=== PATIENT | female | born 1990 | race Caucasian/White ===

== ENCOUNTER 2020-02-29 21:55 | Inpatient (IN) | payer SELFPAY ==
[2020-02-29] MEDS ORDERED: NA CHLORIDE 0.9% 1,000 ML ONE (23:01)
[2020-02-29 23:42] LABS: Urine Blood NEGATIVE (NEG); Urine Glucose NEGATIVE (NEG); Urine Protein NEGATIVE (NEG)
[2020-03-01 00:50] LABS: Absolute Lymphocytes (CBC) 1.8 K/uL (0.7-4.9); Basophils % 0.4 % (0-1.3); Hematocrit 38.4 % (36.0-45.0); Lymphocytes % 12.8 % (15.3-44.8); MPV 9.5 fL (7.6-11.3); RBC Red Blood Cell Count 4.58 M/uL (3.86-4.86)
[2020-03-01 00:52] LABS: Protime INR 1.25
[2020-03-01 01:11] LABS: Urine Culture Reflex Order NOT NEEDED
[2020-03-01 01:12] LABS: Urine Bacteria <20 /HPF (<20); Urine RBC <5 /HPF (NONE SEEN)
[2020-03-01 01:19] LABS: ALT/SGPT 20 U/L (12-78); AST/SGOT 11 U/L (15-37); Albumin 4.1 g/dL (3.4-5.0); Alkaline Phosphatase 81 U/L (45-117); BUN Blood Urea Nitrogen 6 mg/dL (7-18); Bicarbonate 24 mmol/L (21-32); Bilirubin Direct < 0.1 mg/dL (0-0.2); Bilirubin Total 0.4 mg/dL (0.2-1.0); Ferritin 18.7 ng/mL (8-388); Glucose Level 87 mg/dL (74-106); Lipase 149 U/L (73-393); Potassium 3.2 mmol/L (3.5-5.1); Protein, Total 8.5 g/dL (6.4-8.2); Sodium Level 137 mmol/L (136-145)
[2020-03-01] MEDS ORDERED: FENTANYL CITR 100 MCG/2 ML ONE (01:38)
[2020-03-01] MEDS ORDERED: Levofloxacin 750mg IV 750 MG/150 ML BAG IV ONE (01:39)
--- NOTE | 2020-03-01 02:12 | ER ---
Nurse's Notes [facility] Name: Katherine Lopez Age: 29 yrs Sex: Female : 1990 Arrival Date: 02/29/2020 Time: 21:57 Bed 15 Private MD: Diagnosis: Fever presenting with conditions classified elsewhere;Prominent bilateral cervical lymphadenopathy;Hypokalemia;Volume depletion Presentation: 02/28 22:02 Chief complaint: Patient states: Fever and fatigue for 3 days. + body aches. Slight ll1 cough. No N/V/D. Coronavirus screen: Proceed with normal triage. Patient reports a cough. Patient denies shortness of breath or difficulty breathing. Patient reports a measured and/or subjective temperature greater than 100.4F. Patient denies travel on a cruise ship or to a country the [facility] currently lists as an affected area. Patient denies contact with known and/or suspected case of COVID-19. Coronavirus screen: Surgical mask placed on patient. Patient moved to private room, placed in contact and droplet isolation with eye protection until further assessment. Ebola Screen: Patient denies travel to an Ebola-affected area in the 21 days before illness onset. Initial Sepsis Screen: Does the patient meet any 2 criteria? Temp <36.0*C (96.8*F)) or > 38.3*C (100.9*F). HR > 90 bpm. Risk Assessment: Do you want to hurt yourself or someone else? Patient reports no desire to harm self or others. Onset of symptoms was February 26, 2020. 22:02 Method Of Arrival: Ambulatory ll1 22:02 Acuity: PIA 3 ll1 03/01 00:00 Initial Sepsis Screen: Does the patient have a suspected source of infection? Yes: Other: fever. RELINER: 00:00 [facility] 01/2020 wh Historical: - Allergies: 02/28 22:04 Azithromycin; ll1 22:04 Ceclor; ll1 22:04 Codeine; ll1 22:04 Sulfa (Sulfonamide Antibiotics); ll1 03/01 01:10 Iodine (Anaphylaxis); lp1 - PMHx: 02/28 22:04 Asthma; ll1 - PSHx: 22:04 Tonsillectomy; lap band; ll1 - Immunization history:: Flu vaccine is up to date. - Social history:: Smoking status: Patient reports the use of cigarette tobacco products, smokes one-half pack cigarettes per day, Patient uses alcohol, only on a social basis. Patient/guardian denies using street drugs. Screenin/03 00:00 Abuse screen: Denies threats or abuse. Denies injuries from another. Nutritional wh screening: No deficits noted. Tuberculosis screening: No symptoms or risk factors identified. Fall Risk None identified. Assessment: 02/28 22:45 General: Appears in no apparent distress. Behavior is calm, cooperative, appropriate wh for age. Pain: Complains of pain in neck Pain does not radiate. Pain currently is 6 out of 10 on a pain scale. Neuro: Level of Consciousness is awake, alert, obeys commands, Oriented to person, place, time, situation, Appropriate for age. Cardiovascular: Heart tones S1 S2 Rhythm is sinus tachycardia. Respiratory: Airway is patent Respiratory effort is even, unlabored, Respiratory pattern is regular, symmetrical, Breath sounds are clear bilaterally. GI: Abdomen is flat, non-distended. : No signs and/or symptoms were reported regarding the genitourinary system. EENT: Throat is pink. Derm: Skin is intact, is healthy with good turgor, Skin is pink, warm \T\ dry. normal. Musculoskeletal: Circulation, motion, and sensation intact. 03/01 00:05 Reassessment: Patient appears in no apparent distress at this time. No changes from previously documented assessment. Patient and/or family updated on plan of care and expected duration. Pain level reassessed. Patient is alert, oriented x 3, equal unlabored respirations, skin warm/dry/pink. 01:00 Reassessment: Patient appears in no apparent distress at this time. No changes from previously documented assessment. Patient and/or family updated on plan of care and expected duration. Pain level reassessed. Patient is alert, oriented x 3, equal unlabored respirations, skin warm/dry/pink. 02:00 Reassessment: Patient appears in no apparent distress at this time. No changes from previously documented assessment. Patient and/or family updated on plan of care and expected duration. Pain level reassessed. Patient is alert, oriented x 3, equal unlabored respirations, skin warm/dry/pink. Provider at bedside explaining POC need for admit. 03:30 Reassessment: Patient appears in no apparent distress at this time. No changes from previously documented assessment. Patient and/or family updated on plan of care and expected duration. Pain level reassessed. Patient is alert, oriented x 3, equal unlabored respirations, skin warm/dry/pink. Vital Signs: 02/28 22:02 BP 179 / 90; Pulse 152; Resp 18; Temp 100.4; Pulse Ox 100% ; Weight 86.18 kg; Height 5 ll1 ft. 3 in. (160.02 cm); Pain 3/10; 03/01 00:00 BP 132 / 90; Pulse 114; Resp 18; Pulse Ox 100% on R/A; wh 01:30 BP 126 / 95; Pulse 107; Resp 18; Pulse Ox 100% on R/A; wh 03:00 BP 123 / 86; Pulse 108; Resp 18; Pulse Ox 100% on R/A; wh 04:00 BP 127 / 88; Pulse 105; Resp 18; Temp 99.2; Pulse Ox 99% on R/A; wh 02/28 22:02 Body Mass Index 33.66 (86.18 kg, 160.02 cm) ll1 ED Course: 02/28 21:57 Patient arrived in ED. cl3 22:04 Triage completed. ll1 22:05 Arm band placed on Patient placed in an exam room, on a stretcher. ll1 22:34 [facility]C [facility] snw 22:34 Darrick Montes De Oca MD is Attending Physician. snw 22:35 Nando Linn is Primary Nurse. wh 23:30 Inserted saline lock: 20 gauge in left antecubital area, using aseptic technique. Blood wh collected. 03/01 00:00 Patient has correct armband on for positive identification. Placed in gown. Bed in low wh position. Call light in reach. radiation monitor on. Pulse ox on. NIBP on. 00:25 Inserted saline lock: 22 gauge in right forearm, using aseptic technique. Blood ds4 collected. IV discontinued, intact, bleeding controlled, No redness/swelling at site. Pressure dressing applied. 00:36 BMP Sent. ds4 00:36 CBC with Diff Sent. ds4 00:36 D-Dimer Sent. ds4 01:39 Soft Tissue Neck Wo Contr In Process Unspecified. EDMS 01:56 CXR XRAY In Process Unspecified. EDMS 02:10 Carmen Moreno MD is Hospitalizing Provider. snw 03:39 No provider procedures requiring assistance completed. Patient admitted, IV remains in place. Administered Medications: 00:05 Drug: NS 0.9% 1000 ml Route: IV; Rate: 1 bolus; Site: left antecubital; 03:45 Follow up: Response: No adverse reaction; IV Status: Completed infusion 01:41 Drug: LevaQUIN 750 mg Volume: 150 ml; Route: IVPB; Infused Over: 90 mins; Site: right wh forearm; 02:44 Follow up: IV Status: Completed infusion 01:41 Drug: fentaNYL (PF) 50 mcg {Note: RASS 0.} Route: IVP; Site: right forearm; 02:44 Follow up: Response: No adverse reaction; Pain is decreased; RASS: Alert and Calm (0) 03:25 Drug: NS 0.9% 1000 ml Route: IV; Rate: 1 bolus; Site: right forearm; 03:43 Follow up: Response: No adverse reaction; IV Status: Completed infusion 03:26 Drug: Potassium Chloride 20 mEq Route: IV; Rate: calculated rate; Site: right forearm; 03:44 Follow up: Response: No adverse reaction; IV Status: Completed infusion 03:26 Drug: Decadron - Dexamethasone 10 mg Route: IVP; Site: right forearm; 03:44 Follow up: Response: No adverse reaction Outcome: 02:12 Decision to Hospitalize by Provider. snw 03:40 Admitted to ER Hold. Please see [facility] for further documentation. 03:40 Condition: stable 03:40 Instructed on the need for admit. 05:53 Admitted to Tele accompanied by [facility], via wheelchair, room 417, with chart, Report wh called to Rachele Mullen RN 05:53 Condition: stable 05:53 Instructed on the need for admit. 05:55 Patient left the ED. Signatures: Dispatcher [employer] EDMS Mallory Chapman, PADMAJA BAKER BREAD-Csnw Leanne Almeida, RN RN lp1 Daniel Vázquez ds4 Nando Linn Mariza Presley cl3 Adrien Presley RN RN ll1 Corrections: (The following items were deleted from the chart) 05:19 03:00 BP 127 / 88; Pulse 105bpm; Resp 18bpm; Pulse Ox 99% RA; Temp 99.2F; wh wh
--- NOTE | 2020-03-01 02:13 | EDPHYS ---
Physician Documentation [facility] Name: Katherine Lopez Age: 29 yrs Sex: Female : 1990 Arrival Date: 02/29/2020 Time: 21:57 Bed 15 Private MD: KEVIN Physician Darrick Montes De Oca HPI: 03/01 01:13 This 29 yrs old Female presents to ER via Ambulatory with complaints of snw Fever, Chills. 01:13 The patient reports fever, fever to 103 started today, malaise, fatigue, myalgias x 2 snw day prior to fever. Onset: The symptoms/episode began/occurred suddenly, and became worse. Associated signs and symptoms: Pertinent positives: decreased appetite, myalgias. Severity of symptoms: At their worst the symptoms were moderate. The patient has not experienced similar symptoms in the past. The patient has not recently seen a physician. 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 - Social history:: Smoking status: Patient reports the use of cigarette tobacco products, smokes one-half pack cigarettes per day, Patient uses alcohol, only on a social basis. Patient/guardian denies using street drugs. ROS: 03/01 01:10 Eyes: Negative for injury, pain, redness, and discharge. snw Respiratory: Negative for shortness of breath, cough, wheezing, and pleuritic chest pain, Abdomen/GI: Negative for abdominal pain, nausea, vomiting, diarrhea, and constipation, Back: Negative for injury and pain, : Negative for injury, bleeding, discharge, and swelling, MS/Extremity: Negative for injury and deformity, Skin: Negative for injury, rash, and discoloration. Constitutional: Positive for body aches, chills, fatigue, fever, malaise, poor PO intake. ENT: Positive for sore throat. Neck: Positive for pain with movement, pain at rest, tenderness, "feels like whiplash", but the anterior portion is tender to touch. Cardiovascular: Positive for palpitations. Neuro: Positive for dizziness. Exam: 01:10 Head/Face: Normocephalic, atraumatic. Eyes: Pupils equal round and reactive to light, snw extra-ocular motions intact. Lids and lashes normal. Conjunctiva and sclera are non-icteric and not injected. Cornea within normal limits. Periorbital areas with no swelling, redness, or edema. ENT: Nares patent. No nasal discharge, no septal abnormalities noted. Tympanic membranes are normal and external auditory canals are clear. Oropharynx with no redness, swelling, or masses, exudates, or evidence of obstruction, uvula midline. Mucous membranes moist. 01:10 Chest/axilla: Normal chest wall appearance and motion. Nontender with no deformity. No lesions are appreciated. 01:10 Respiratory: Lungs have equal breath sounds bilaterally, clear to auscultation and percussion. No rales, rhonchi or wheezes noted. No increased work of breathing, no retractions or nasal flaring. Abdomen/GI: Soft, non-tender, with normal bowel sounds. No distension or tympany. No guarding or rebound. No evidence of tenderness throughout. Back: No spinal tenderness. No costovertebral tenderness. Full range of motion. Skin: Warm, dry with normal turgor. Normal color with no rashes, no lesions, and no evidence of cellulitis. MS/ Extremity: Pulses equal, no cyanosis. Neurovascular intact. Full, normal range of motion. Neuro: Awake and alert, GCS 15, oriented to person, place, time, and situation. Cranial nerves II-XII grossly intact. Motor strength 5/5 in all extremities. Sensory grossly intact. Cerebellar exam normal. Normal gait. Psych: Awake, alert, with orientation to person, place and time. Behavior, mood, and affect are within normal limits. 01:10 Constitutional: The patient appears alert, awake, febrile, uncomfortable. 01:10 Neck: External neck: is normal, C-spine: appears grossly normal, Thyroid: tenderness, that is moderate, Trachea: is midline with no obvious abnormalities, ROM/movement: limited range of motion, with flexion, in most extreme flexion. Meningeal signs: Kernig's sign is negative, Brudzinski's sign is negative, nuchal rigidity, is not appreciated, Lymph nodes: lymphadenopathy is appreciated, anterior cervical nodes, exquisitely tender. 01:10 Cardiovascular: Rate: tachycardic, Rhythm: regular, Heart sounds: normal. Vital Signs: 02/28 22:02 BP 179 / 90; Pulse 152; Resp 18; Temp 100.4; Pulse Ox 100% ; Weight 86.18 kg; Height 5 ll1 ft. 3 in. (160.02 cm); Pain 3/10; 03/01 00:00 BP 132 / 90; Pulse 114; Resp 18; Pulse Ox 100% on R/A; wh 01:30 BP 126 / 95; Pulse 107; Resp 18; Pulse Ox 100% on R/A; wh 03:00 BP 123 / 86; Pulse 108; Resp 18; Pulse Ox 100% on R/A; wh 04:00 BP 127 / 88; Pulse 105; Resp 18; Temp 99.2; Pulse Ox 99% on R/A; wh 02/28 22:02 Body Mass Index 33.66 (86.18 kg, 160.02 cm) ll1 MDM: 02/28 22:38 Patient medically screened. [facility] 03/01 02:12 Data reviewed: vital signs, nurses notes. Data interpreted: Pulse oximetry: on room air snw is 100 %. Interpretation: normal. Counseling: I had a detailed discussion with the patient and/or guardian regarding: the historical points, exam findings, and any diagnostic results supporting the discharge/admit diagnosis, the presence of at least one elevated blood pressure reading (>120/80) during this emergency department visit, lab results, radiology results, the need for further work-up and treatment in the hospital. Physician consultation: Carmen Moreno MD was called at 02:00, was contacted at 02:00, regarding admission, would like medications started, Decadron. 02/28 22:07 Order name: Flu; Complete Time: 23:19 lp1 02/28 22:07 Order name: Strep; Complete Time: 23:19 lp1 02/28 22:34 Order name: COVID-19 snw 02/28 22:35 Order name: Urine Culture snw 02/28 22:35 Order name: Urine Microscopic Only; Complete Time: 01:15 snw 02/28 22:56 Order name: Throat Culture EDMS 02/28 23:21 Order name: Blood Culture Adult (2) snw 02/28 23:21 Order name: BMP; Complete Time: 01:35 snw 02/28 23:21 Order name: C-Reactive Protein; Complete Time: 01:35 snw 02/28 23:21 Order name: CBC with Diff; Complete Time: 00:58 snw 02/28 23:21 Order name: D-Dimer; Complete Time: 00:58 snw 02/28 23:21 Order name: Ferritin; Complete Time: 01:35 snw 02/28 23:21 Order name: Lactate; Complete Time: 01:15 snw 02/28 23:21 Order name: LFT's; Complete Time: 01:35 snw 02/28 23:21 Order name: Lipase; Complete Time: 01:35 snw 02/28 23:21 Order name: Procalcitonin; Complete Time: 01:35 snw 02/28 23:21 Order name: PT-INR; Complete Time: 00:58 snw 02/28 23:21 Order name: Ptt, Activated; Complete Time: 00:58 snw 02/28 23:21 Order name: CXR XRAY snw 02/28 23:21 Order name: TSH; Complete Time: 01:35 snw 02/28 23:37 Order name: Urine Dipstick--Ancillary (enter results); Complete Time: 23:48 [facility] 02/28 23:37 Order name: Urine --Ancillary (enter results); Complete Time: 23:48 [facility] 03/01 01:11 Order name: Soft Tissue Neck Wo Contr EDNM 03/01 02:01 Order name: Add On-Lab sn 03/01 02:14 Order name: [place] Screen; Complete Time: 02:41 EDNM 02/28 22:35 Order name: Urine Test (obtain specimen); Complete Time: 00:06 snw 02/28 22:35 Order name: Urine Dipstick-Ancillary (obtain specimen); Complete Time: 00:06 snw 02/28 23:21 Order name: EKG; Complete Time: 23:23 snw 02/28 23:21 Order name: Cardiac monitoring; Complete Time: 00:04 snw 02/28 23:21 Order name: IV Start; Complete Time: 00:04 snw 02/28 23:21 Order name: Labs collected and sent; Complete Time: 00:04 snw 02/28 23:21 Order name: O2 Per Protocol; Complete Time: 00:04 snw 02/28 23:21 Order name: O2 Sat Monitoring; Complete Time: 00:04 snw 03/01 02:29 Order name: CONS Pharmacy Consult EDMS 03/01 02:29 Order name: CONS Physician Consult EDMS 03/01 02:29 Order name: Full Liquid EDMS Administered Medications: 00:05 Drug: NS 0.9% 1000 ml Route: IV; Rate: 1 bolus; Site: left antecubital; 03:45 Follow up: Response: No adverse reaction; IV Status: Completed infusion 01:41 Drug: LevaQUIN 750 mg Volume: 150 ml; Route: IVPB; Infused Over: 90 mins; Site: right forearm; 02:44 Follow up: IV Status: Completed infusion 01:41 Drug: fentaNYL (PF) 50 mcg {Note: RASS 0.} Route: IVP; Site: right forearm; 02:44 Follow up: Response: No adverse reaction; Pain is decreased; RASS: Alert and Calm (0) 03:25 Drug: NS 0.9% 1000 ml Route: IV; Rate: 1 bolus; Site: right forearm; 03:43 Follow up: Response: No adverse reaction; IV Status: Completed infusion 03:26 Drug: Potassium Chloride 20 mEq Route: IV; Rate: calculated rate; Site: right forearm; 03:44 Follow up: Response: No adverse reaction; IV Status: Completed infusion 03:26 Drug: Decadron - Dexamethasone 10 mg Route: IVP; Site: right forearm; 03:44 Follow up: Response: No adverse reaction Disposition: 14:46 Co-signature as Attending Physician, Darrick Montes De Oca MD I agree with the assessment and farzaneh plan of care. Disposition: 03/01/20 02:12 Hospitalization ordered by Carmen Moreno for Observation. Preliminary diagnosis are Fever presenting with conditions classified elsewhere, Prominent bilateral cervical lymphadenopathy, Hypokalemia, Volume depletion. - Bed requested for Telemetry/MedSurg (observation). - Status is Observation. wh - Condition is Stable. - Problem is new. - Symptoms are unchanged. Signatures: Dispatcher [employer] EDMS Darrick Montes De Oca MD MD cha Therrien, Shelly, CHIEF MAINTENANCE SUPERVISOR-C CHIEF MAINTENANCE SUPERVISOR-Csnw Leanne Almeida, RN RN lp1 Patricia Walton, RN RN tl1 Nando Linn wh Geni Ontiveros ar5 Adrien Presley, RN RN ll1 Corrections: (The following items were deleted from the chart) 00:27 0602 23:21 Nath ordered. snw snw 03/01 01:11 00:54 Soft Tissue Neck W/Contr+CT.RAD.BRZ ordered. EDMS EDMS 02:56 02:12 Hospitalization Ordered by Carmen Moreno MD for Observation. Preliminary ar5 diagnosis is Fever presenting with conditions classified elsewhere; Prominent bilateral cervical lymphadenopathy; Hypokalemia; Volume depletion. Bed requested for Telemetry/MedSurg (observation). Status is Observation. Condition is Stable. Problem is new. Symptoms are unchanged. snw 04:53 02:56 03/01/2020 02:12 Hospitalization Ordered by Carmen Moreno MD for Observation. tl1 Preliminary diagnosis is Fever presenting with conditions classified elsewhere; Prominent bilateral cervical lymphadenopathy; Hypokalemia; Volume depletion. Bed requested for [facility] ER HOLD. Status is Observation. Condition is Stable. Problem is new. Symptoms are unchanged. ar5 05:55 04:53 03/01/2020 02:12 Hospitalization Ordered by Carmen Moreno MD for Observation. wh Preliminary diagnosis is Fever presenting with conditions classified elsewhere; Prominent bilateral cervical lymphadenopathy; Hypokalemia; Volume depletion. Bed requested for Telemetry/MedSurg (observation). Status is Observation. Condition is Stable. Problem is new. Symptoms are unchanged. tl1
[2020-03-01] MEDS ORDERED: MORPHINE 4 MG/ML SYR IV PRN (02:23)
[2020-03-01] MEDS ORDERED: ACETAMINOPHEN 500 MG TAB PO PRN (02:23)
[2020-03-01] MEDS ORDERED: ONDANSETRON 4 MG/2 ML VIAL IV PRN (02:23)
[2020-03-01] MEDS: CLINDAMYCIN INJ 900 MG in NA CHLORIDE 0.9% 50 ML IV SCH ×2 (03:00→08:40)
[2020-03-01] MEDS: HYDROCORTISONE SUC 100 MG INJ IV SCH ×2 (03:00→08:52)
[2020-03-01] MEDS ORDERED: NA CHLORIDE 0.9% 1,000 ML IV SCH (03:00)
[2020-03-01] MEDS ORDERED: KCL 20 MEQ/100 mL IVPB 20 MEQ/100 ML BAG IV ONE (03:11)
[2020-03-01] MEDS ORDERED: NA CHLORIDE 0.9% 1,000 ML ONE ×2 (03:11→05:30)
[2020-03-01] MEDS ORDERED: dexAMETHasone 10 MG/ML VIAL ONE (03:11)
[2020-03-01 03:51] VITALS: BMI 33.6
[2020-03-01] MEDS ORDERED: HYDROCORTISONE SUC 100 MG INJ ONE (05:30)
[2020-03-01] MEDS ORDERED: CLINDAMYCIN 900MG/D5W 900 MG/50 ML IVPB IV ONE (05:30)
--- NOTE | 2020-03-01 09:39 | RAD REPORT ---
EXAM DESCRIPTION: Mima Single View03/01/2020 1:56 am CLINICAL HISTORY: Fever/tachycardia COMPARISON: 2015 FINDINGS: Calcified granuloma left lung unchanged The lungs appear clear of acute infiltrate. The heart is normal size IMPRESSION: No acute abnormalities displayed
--- NOTE | 2020-03-01 09:45 | P.HP ---
Certification for Inpatient Patient admitted to: Inpatient With expected LOS: >2 Midnights Patient will require the following post-hospital care: None Practitioner: I am a practitioner with admitting privileges, knowledge of patient current condition, hospital course, and medical plan of care. 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 Her symptoms have been gradually worsening over the last week so she came into the hospital for further evaluation. In the emergency room patient's CT scan which revealed anterior cervical lymphadenitis. No other significant abnormalities were noted except for possible maxillary sinusitis. Patient was started on IV antibiotics and pain control. Patient was also given some Decadron for inflammation. Patient's strep screen was negative as was a Monospot. At this time, patient be admitted to the hospital for further evaluation. Patient denies any COVID-19 contact. Will go ahead and screen her at this time. Allergies azithromycin Allergy (Verified 03/01/20 03:52) Unknown cefaclor [From Ceclor] Allergy (Verified 03/01/20 03:52) Unknown codeine Allergy (Verified 03/01/20 03:52) Unknown Iodine and Iodide Containing Produc Allergy (Verified 03/01/20 03:52) Anaphylaxis Sulfa (Sulfonamide Antibiotics) Allergy (Verified 03/01/20 03:52) Unknown Sulfa (Solorio Allergy (Uncoded 03/01/20 03:52) Unknown Home Medications: NK [No Home Meds] 03/01/20 - Past Medical/Surgical History Has patient received pneumonia vaccine in the past: No Diabetic: No -: Asthma -: lap band -: tonsillectomy - Family History Father Family History: Reviewed- Non-Contributory - Social History Smoking Status: Current some day smoker Alcohol use: No CD- Drugs: No Caffeine use: Yes Place of Residence: Home Review of Systems 10-point ROS is otherwise unremarkable Physical Examination - Vital Signs Temperature: 98.5 F Blood Pressure: 114/60 Pulse: 71 Respirations: 18 Pulse Ox (%): 99 - Physical Exam General: Alert, In no apparent distress, Oriented x3 HEENT: Atraumatic, PERRLA, Mucous membr. moist/pink, EOMI, Sclerae nonicteric Neck: 2+ carotid pulse no bruit, Without JVD or thyroid abnormality, LAD Respiratory: Clear to auscultation bilaterally, Normal air movement, Diminished Cardiovascular: Regular rate/rhythm, Normal S1 S2, No murmurs Gastrointestinal: Normal bowel sounds, Soft and benign, Non-distended, No tenderness Musculoskeletal: No clubbing, No swelling, No tenderness Integumentary: No rashes Neurological: Normal gait, Normal speech, Normal strength at 5/5 x4 extr, Normal tone, Sensation intact, Cranial nerves 3-12 intact, Normal affect Lymphatics: No axilla or inguinal lymphadenopathy - Studies Laboratory Data (last 24 hrs) 03/01/20 00:30: PT 14.7 H, INR 1.25, APTT 29.8 03/01/20 00:30: WBC 14.3 H, Hgb 12.2, Hct 38.4, Plt Count 271 03/01/20 00:30: Sodium 137, Potassium 3.2 L, BUN 6 L, Creatinine 0.84, Glucose 87, Total Bilirubin 0.4, AST 11 L, ALT 20, Alkaline Phosphatase 81, Lipase 149 Microbiology Data (last 24 hrs): 02/29/20 22:10 Throat Group A Streptococcus Rapid Screen - Final 02/29/20 22:10 Nasopharnyx Influenza Type A Antigen Screen - Final 02/29/20 22:10 Nasopharnyx Influenza Type B Antigen Screen - Final Assessment & Plan - Problems (Diagnosis) (1) Lymphadenitis, acute Current Visit: Yes Status: Acute (2) Anterior cervical lymphadenopathy Current Visit: Yes Status: Acute (3) Fever Current Visit: Yes Status: Acute (4) Acute pharyngitis Current Visit: Yes Status: Acute - Plan 1. Continue with IV hydration 2. Continue with IV antibiotics 3. Continue with pain control; anti-inflammatories 4. NPO until evaluated by ENT 5. ENT consultation consultation; 6. Serial H&H, and we will monitor CBC, BMP, LFTs and lipase along with electrolytes. 7. GI and DVT prophylaxis Discharge Plan: Home Plan to discharge in: Greater than 2 days - Advance Directives Does patient have a Living Will: No Does patient have a Durable POA for Healthcare: No - Code Status/Comfort Care Code Status Assessed: Yes Code Status: Full Code Critical Care: No Time Spent Managing PTS Care (In Minutes): 40
[2020-03-01 12:46] VITALS: O2SAT 91
--- NOTE | 2020-03-01 12:56 | P.CNS ---
Date of Consult: 03/01/20 Chart review is performed, including personal review of the CT neck images. Study is poorly contrasted. The case discussed with Dr Warner. The patient's CT does not demonstrate significant OP edema or any sign of abscess/fluid collection. Based on presentation with LAD, I agree with viral, possible EBV pharyngitis despite negative monospot. The monospot can be negative, pooja within the first few days of infection. Consider EBV IgM/IgG if definitive dx is required. Ok for FU with Dr Fernandez in 1-2 weeks or sooner if sore throat if not improving. Hydration. Oral steroids for LAD/swelling. Antibiotics do not likely play a significant role but can consider Clinda or Amoxil if there are pharyngeal indications per primary team.
--- NOTE | 2020-03-01 13:08 | P.DS ---
Admission Date: 03/01/20 Discharge Date: 03/01/20 Primary Care Provider: Dr. Franco Disposition: ROUTINE DISCHARGE Discharge Condition: GOOD Reason for Admission: Strep pharyngitis with anterior cervical lymphadenitis Consultations: ENT-Dr. Fernandez Procedures: Ct Scan: Cervical chain adenopathy without abscess. Medical Problem List: Fever, dysphagia secondary to suspected mono with noted anterior cervical lymphadenopathy Chronic seasonal allergies Brief History of Present Illness: 29-year-old female presented to the emergency room with dysphagia. Patient with chronic seasonal allergies. Patient also reported some neck pain. She had reported this over the past week. This had worsened. Patient came to the ER for further evaluation. CT scan revealed kenaitze node adenopathy. No abscess noted. Patient was admitted for further evaluation. Hospital Course: 29-year-old female presented with dysphagia and neck pain. Patient found to have significant cervical adenopathy. Strep test negative. Hernando test negative. Influenza test negative. COVID negative. Pro calcitonin also negative. Patient was admitted for further evaluation. Patient had elevated CRP. CT scan revealed cervical chain adenopathy. No abscess noted. Patient did well during the course her stay with IV fluids, antibiotics and IV steroids. Case discussed at length with ENT. No surgical intervention required. ENT suspects mono. Patient responded well to IV steroids. At discharge patient will continue with prednisone 10 mg 1 pill twice daily for 5 days then 1 pill once daily for 5 days. No need for antibiotic therapy at this time. Recommend follow up with ENT within 1 week to follow up this hospitalization. Education on mono will be provided. Patient with chronic seasonal allergies. Patient takes medication. She may continue with this. Recommend follow up with tableau architect to further follow and address. Vital Signs/Physical Exam: Temp Pulse Resp BP Pulse Ox 97.0 F 74 18 105/59 L 91 03/01/20 12:00 03/01/20 12:00 03/01/20 12:00 03/01/20 12:03/01/20 12:00 General: Alert, In no apparent distress, Oriented x3, Cooperative, Other (Patient does not appear septic. Patient able to tolerate diet) HEENT: Atraumatic, Other (Cervical bilateral adenopathy. Postauricular and preauricular adenopathy.) Neck: Supple Respiratory: Clear to auscultation bilaterally, Normal air movement Cardiovascular: Normal pulses, Regular rate/rhythm Gastrointestinal: No guarding Neurological: Normal speech, Normal strength at 5/5 x4 extr, Normal tone, Normal affect Lymphatics: Other (As above) Laboratory Data at Discharge: WBC 14.3 K/uL (4.3-10.9) H 03/01/20 00:30 Hgb 12.2 g/dL (12.0-15.0) 03/01/20 00:30 Hct 38.4 % (36.0-45.0) 03/01/20 00:30 Plt Count 271 K/uL (152-406) 03/01/20 00:30 PT 14.7 SECONDS (9.5-12.5) H 03/01/20 00:30 INR 1.25 03/01/20 00:30 APTT 29.8 SECONDS (24.3-36.9) 03/01/20 00:30 Sodium 137 mmol/L (136-145) 03/01/20 00:30 Potassium 3.2 mmol/L (3.5-5.1) L 03/01/20 00:30 BUN 6 mg/dL (7-18) L 03/01/20 00:30 Creatinine 0.84 mg/dL (0.55-1.3) 03/01/20 00:30 Glucose 87 mg/dL (74-106) 03/01/20 00:30 Total Bilirubin 0.4 mg/dL (0.2-1.0) 03/01/20 00:30 AST 11 U/L (15-37) L 03/01/20 00:30 ALT 20 U/L (12-78) 03/01/20 00:30 Alkaline Phosphatase 81 U/L (45-117) 03/01/20 00:30 Lipase 149 U/L (73-393) 03/01/20 00:30 Home Medications: predniSONE [Deltasone*] 10 mg PO SEECOM #15 tab 03/01/20 New Medications: predniSONE [Deltasone*] 10 mg PO SEECOM #15 tab Patient Discharge Instructions: 29-year-old female presented with dysphagia and neck pain. Patient found to have significant cervical adenopathy. Strep test negative. Hernando test negative. Influenza test negative. COVID negative. Pro calcitonin also negative. Patient was admitted for further evaluation. Patient had elevated CRP. CT scan revealed cervical chain adenopathy. No abscess noted. Patient did well during the course her stay with IV fluids, antibiotics and IV steroids. Case discussed at length with ENT. No surgical intervention required. ENT suspects mono. Patient responded well to IV steroids. At discharge patient will continue with prednisone 10 mg 1 pill twice daily for 5 days then 1 pill once daily for 5 days. No need for antibiotic therapy at this time. Recommend follow up with ENT within 1 week to follow up this hospitalization. Education on mono will be provided. Patient with chronic seasonal allergies. Patient takes medication. She may continue with this. Recommend follow up with tableau architect to further follow and address. Diet: GI soft then advance to regular diet Activity: Ad jairo Time spent managing pt's care (in minutes): 55
--- NOTE | 2020-03-01 16:29 | EKG ---
Test Date: 2020-02-29 Test Time: 23:58:03 Dyed Yarn Operator: CARMEN MEASUREMENT RESULTS: Intervals: Rate: 112 AL: 170 QRSD: 84 QT: 322 QTc: 439 Pine: P: 58 AL: 170 QRS: 70 T: 71 INTERPRETIVE STATEMENTS: Sinus tachycardia Otherwise normal ECG Compared to ECG 08/28/2016 11:53:56 No significant changes Electronically Signed On 03-01-20 16:27:31 CDT by Suresh Guillaume
[2020-03-01] MEDS ORDERED: CLINDAMYCIN INJ 900 MG in NA CHLORIDE 0.9% 50 ML IV SCH (17:00)
--- NOTE | 2020-03-01 17:21 | RAD REPORT ---
EXAM DESCRIPTION: CT - Soft Tissue Neck Wo Contr - 03/01/2020 7:04 am CLINICAL HISTORY: The patient is 29 years old and is Female; PAIN fever, cough, body aches TECHNIQUE: Axial computed tomography images of the neck without intravenous contrast. Sagittal and coronal reformatted images were created and reviewed. This CT exam was performed using one or more of the following dose reduction techniques: automated exposure control, adjustment of the mA and/o r kV according to patient size, and/or use of iterative reconstruction technique. COMPARISON: No relevant prior studies available. FINDINGS: OROPHARYNX: Unremarkable. No significant tonsillar enlargement. HYPOPHARYNX: Unremarkable. LARYNX: Unremarkable. Normal epiglottis. TRACHEA: Unremarkable. RETROPHARYNGEAL SPACE: Unremarkable. SUBMANDIBULAR/PAROTID GLANDS: Unremarkable. Glands are normal in size. THYROID: Unremarkable. No enlarged or calcified nodules. BONES/JOINTS: No acute fracture. SOFT TISSUES: The soft tissues are normal. VASCULATURE: Unremarkable. Normal in course and caliber. LYMPH NODES: Multiple prominent bilateral cervical chain lymph nodes are present. SINUSES: Mucoperiosteal thickening of the right maxillary sinus, ethmoid air cells, and right sp henoid sinus is noted. LUNG APICES: The lung apices are clear. IMPRESSION: Prominent bilateral reactive versus inflammatory cervical chain adenopathy. Electronically signed by: Korin Kaplan MD 03/01/2020 1:46 AM CDT Due to temporary technical issues with the PACS/Fluency reporting system, reports are being signed by the in house radiologist without review a sa courtesy to ensure prompt reporting. The interpreting r adiologist is fully responsible for the content of the report.
[2020-03-01] MEDS ORDERED: Levofloxacin500mg IV 500 MG/100 ML BAG IV SCH (23:00)
[2020-03-02] MEDS ORDERED: Levofloxacin500mg IV 500 MG/100 ML BAG IV SCH (01:00)
[2020-03-03 03:24] VITALS: BP 114/60; TEMP 98.5
== END 2020-03-01 13:50 | disposition home or self-care (01) | DRG 816 ==
LOC: ER 21:55 → ERHOLD 03-01 02:32 → 4TH 03-01 05:40
PROVIDERS: ADMIT Hospitalist; ATTEND Hospitalist
DX: R59.1 Generalized enlarged lymph nodes (principal); F17.200 Nicotine dependence, unspecified, uncomplicated; J02.9 Acute pharyngitis, unspecified; J30.2 Other seasonal allergic rhinitis; R50.9 Fever, unspecified; Z20.828 Contact with and (suspected) exposure to other viral communicable diseases; Z79.52 Long term (current) use of systemic steroids; Z88.1 Allergy status to other antibiotic agents; Z88.5 Allergy status to narcotic agent; Z88.8 Allergy status to other drugs, medicaments and biological substances
CPT/HCPCS: 36415; 70490; 71045; 80048; 80076; 81003; 81015; 81025; 82728; 83605; 83690; 84145; 84443; 85025; 85379; 85610; 85730; 86140; 86308; 87040; 87070; 87081; 87086; 87088; 87804; 93005; 96361; 96365; 96367; 96375; 99285; J1100; J1720; J3010; J7030

== ENCOUNTER 2021-10-25 01:16 | Emergency (ER) | payer BC ==
--- OUTSIDE RECORDS SUMMARY | 2021-10-25 01:18 | XMS REPORT | Continuity of Care Document ---
:1990 Author Organization [facility] t Address [address] [place] [address] Care Team Providers Name Role Phone Unavailable Unavailable Unavailable Problems This patient has no known problems. Allergies, Adverse Reactions, Alerts This patient has no known allergies or adverse reactions. Social History Social Habit Start Date Stop Date Quantity Comments Source Sex Assigned At [facility] Medications This patient has no known medications. Procedures This patient has no known procedures. Results Test Description Test Time Test Comments Results Result Comments Source SARS-COV2/RT-PCR ([facility]) 2020-03-01 06:35:00 Test Item Value Reference Range Interpretation Comme nts SARS-COV2/RT-PCR (test code = 8300209) Not Detected Not Detected, N egative SARS-COV-2 PERFORMING LAB (test code = [facility] 3202508) Negative results do not preclude SARS-CoV-2 infection and should not be used as the sole basis for patient management decisions. Negative results must be combined with clinical observations, patient history, and epidemiological information. A false negative result may occur if a specimen is improperly collected, transported or handled.The limit of detection for this assay is 250 copies/mL.This SARS CoV-2 test is a rapid, real-time RT-PCR test intended for the qualitative detection of nucleic acid from SARS-CoV-2 in a nasopharyngeal swab specimen collected from individuals suspected of COVID-19 by their healthcare provider.This test has not been Food and Drug Administration (FDA) cleared or approved and has been authorized by FDA under an Emergency Use Authorization (EUA). This EUA will be effective until the declaration that circumstances exist justifying the authorization of the emergency use of in vitro diagnostic tests for detection and/or diagnosis of COVID-19 is terminated under Section 564(b)(2) of the Act or the EUA is revoked under Section 564(g) of the Act.Fact Sheet for Healthcare Pro viders:https://www.[employer]/Documents/Xpert%20Xpress%20SARS%20CoV-2/Fact%20Sh eets/3023802%18ZHRD-SRF-0%20HEALTHCARE%20PROVIDERS%20FACT%20SHEET.pdfFact Sheet for Healthcare Patients:https://www.[employer]/Documents/Xpert%20Xpress%20SARS%20CoV-2/Fact%20Sheets/302-9691%20SARS-COV -2%20PATIENT%20FACT%20SHEET.pdfPerforming Laboratory:[facility] [place] [address]
[2021-10-25] MEDS ORDERED: METHYLPREDNISOLONE 125 MG INJ ONE (01:57)
[2021-10-25] MEDS ORDERED: DIPHENHYDRAMINE 50 MG/ML VIAL ONE (01:57)
[2021-10-25] MEDS ORDERED: FAMOTIDINE 20 MG/2 ML VIAL IV ONE (02:04)
[2021-10-25] MEDS ORDERED: NEO/POLY/DEX OPTH 5 ML BOT ONE (04:08)
--- NOTE | 2021-10-25 04:10 | ER ---
Nurse's Notes [facility] Name: Katherine Lopez Age: 30 yrs Sex: Female : 1990 Arrival Date: 10/25/2021 Time: 01:19 Bed 18 Private MD: Quentin Ordonez Diagnosis: Allergic dermatitis of left lower eyelid;Allergic dermatitis of left upper eyelid;Allergic dermatitis of right lower eyelid;Allergic dermatitis of right upper eyelid Presentation: 10/25 01:30 Chief complaint: Patient states: Red, swollen, watery eyes after getting eye lash al4 extensions on Friday. Coronavirus screen: Vaccine status: Patient reports receiving the 2nd dose of the covid vaccine. [employer] At this time, the client does not indicate any symptoms associated with coronavirus-19. Ebola Screen: No symptoms or risks identified at this time. Onset: The symptoms/episode began/occurred suddenly. Anaphylaxis evaluation, no signs or symptoms of anaphylaxis were noted. Initial Sepsis Screen: Does the patient meet any 2 criteria? HR > 90 bpm. No. Patient's initial sepsis screen is negative. Does the patient have a suspected source of infection? No. Patient's initial sepsis screen is negative. Risk Assessment: Do you want to hurt yourself or someone else? Patient reports no desire to harm self or others. Onset of symptoms was October 23, 2021. 01:30 Method Of Arrival: Ambulatory al4 01:30 Acuity: PIA 4 al4 Triage Assessment: 01:38 General: Appears in no apparent distress. uncomfortable, Behavior is calm, cooperative, al4 appropriate for age, Patient reports getting eye lash extensions on Friday and having an allergic reaction. Symptoms include irritated and swollen eyes.. Pain: Complains of pain in right eye and left eye Pain currently is 4 out of 10 on a pain scale. EENT: Eyes red, swollen, watery. Neuro: Level of Consciousness is awake, alert, obeys commands, Oriented to person, place, time, situation. Cardiovascular: Capillary refill < 3 seconds Patient's skin is warm and dry. Respiratory: Airway is patent Respiratory effort is even, unlabored, Respiratory pattern is regular, symmetrical. 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 - Social history:: Smoking status: Patient denies any tobacco usage or history of. Patient uses alcohol, occasionally. - Family history:: not pertinent. - Hospitalizations: : No recent hospitalization is reported. Screenin:35 Abuse screen: Denies threats or abuse. Denies injuries from another. Nutritional tk1 screening: No deficits noted. Tuberculosis screening: No symptoms or risk factors identified. Fall Risk None identified. Assessment: 01:35 General: Appears uncomfortable, well groomed, well developed, well nourished, Behavior tk1 is calm, cooperative, appropriate for age. Pain: Complains of pain in right eye, left eye Pain does not radiate. Pain currently is 5 out of 10 on a pain scale. Quality of pain is described as burning, itching, sand paper Pain began gradually, 1 day ago. Is continuous, Alleviated by nothing. Aggravated by. Neuro: No deficits noted. Level of Consciousness is awake, alert, obeys commands, Oriented to person, place, time, situation, Appropriate for age Candy Bar Attendant are equal bilaterally Moves all extremities. Full function Gait is steady, Speech is normal, Facial symmetry appears normal, Pupils are PERRLA, Reports. Cardiovascular: No deficits noted. Respiratory: Airway is patent Respiratory effort is even, unlabored, Breath sounds are clear bilaterally. GI: No deficits noted. : No deficits noted. EENT: No deficits noted. Derm: Skin is intact, Skin is dry, Skin is pink, warm \T\ dry. Reports burning, itching, pain that is 5 out of 10 on a pain scale. Bilateral eyes. Musculoskeletal: No deficits noted. 02:25 Reassessment: Vaseline applied to bilateral lash lines. Used warm water on wash cloth tk1 to attempt to remove eyelash extensions. Some lashes released. Additional vaseline applied and covered with warm damp wash cloth to sit for 15 - 20 minutes. Patient tolerated well. 03:18 Reassessment: More lashed released. Moderated amount remain in place. Patient tk1 verbalized, she continues with sand in eyes feeling. 04:30 Reassessment: D/C per MD order. Discharge instructions given to patient and spouse. tk1 Verbalized understanding. Vital Signs: 01:30 BP 113 / 79; Pulse 98; Resp 18; Temp 98.6; Pulse Ox 99% ; Weight 81.65 kg; Height 5 ft. al4 3 in. (160.02 cm); Pain 4/10; 01:35 BP 135 / 83 LA Sitting (auto/reg); Pulse 102 MON; Resp 20 S; Temp 98.6; Pulse Ox 100% tk1 on R/A; Pain 5/10; 02:30 BP 111 / 62 LA Supine (auto/reg); Pulse 77 MON; Resp 16 S; Pulse Ox 99% on R/A; tk1 03:18 BP 95 / 50 LA Supine (auto/reg); Pulse 69 MON; Resp 16; Pulse Ox 96% on R/A; tk1 04:03 BP 121 / 60 LA Sitting (auto/reg); Pulse 69; Resp 18; Pulse Ox 98% on R/A; tk1 01:30 Body Mass Index 31.89 (81.65 kg, 160.02 cm) al4 ED Course: 01:19 Patient arrived in ED. es 01:19 Quentin Ordonez MD is Private Physician. es 01:28 Rodríguez Jones MD is Attending Physician. rn 01:30 Myesha Farias is Primary Nurse. tk1 01:35 Bed in low position. Call light in reach. Side rails up X2. Adult w/ patient. tk1 01:35 No provider procedures requiring assistance completed. tk1 01:38 Triage completed. al4 01:38 Arm band placed on. al4 01:52 Inserted saline lock: 20 gauge in right forearm, using aseptic technique. tk1 04:30 IV discontinued, intact, bleeding controlled, No redness/swelling at site. Pressure tk1 dressing applied. Administered Medications: 02:09 Drug: SOLU-Medrol (methylPrednisoLONE) 125 mg Route: IVP; Site: right forearm; tk1 02:09 Drug: Benadryl (diphenhydrAMINE) 50 mg Route: IVP; Site: right forearm; tk1 02:09 Drug: Pepcid (famotidine) 20 mg Route: IVP; Site: right forearm; tk1 03:29 Follow up: Decreased edema to bilateral upper and lower eyelids. Bilateral lids with tk1 continued redness. 04:11 Drug: TobraDEX (tobramycin-dexamethasone) Drops (0.3 %-0.1 %) 2 drops {Note: one drop bb administered to left eye will wait 15 minutes to ascertain allergic reaction will do both eyes if no allergic response.} Route: Ophthalmic; Site: left eye; Intake: Outcome: 04:10 Discharge ordered by . rn 04:30 Discharged to home ambulatory. tk1 04:30 Condition: improved 04:30 Discharge instructions given to patient, significant other, Instructed on discharge instructions, follow up and referral plans. Demonstrated understanding of instructions, follow-up care. 04:33 Patient left the ED. tk1 Signatures: Leanna Mauricio Brenda, RN RN bb Nieto, Roman, MD MD rn Ledbetter, Alexis al4 Kirby, Tammie tk1
--- NOTE | 2021-10-25 04:10 | EDPHYS ---
Physician Documentation [facility] Name: Katherine Lopez Age: 30 yrs Sex: Female : 1990 Arrival Date: 10/25/2021 Time: 01:19 Bed 18 Private MD: Quentin Ordonez ED Physician Rodríguez Jones HPI: 10/25 01:51 This 30 yrs old Female presents to ER via Ambulatory with complaints of Allergic rn Reaction. 01:51 The patient presents with localized swelling. Onset: The symptoms/episode rn began/occurred yesterday. Associated signs and symptoms: Pertinent positives: swelling, Pertinent negatives: hives, shortness of breath. Possible causes: False eyelashes. At home the patient or guardian has treated the symptoms with Benadryl, steroids. Severity of symptoms: At their worst the symptoms were moderate in the emergency department the symptoms are unchanged. The patient has not experienced similar symptoms in the past. The patient has not recently seen a physician. Patient states had false eyelashes placed, tried oral steroids and Benadryl and not really helping. Denies any shortness of breath or trouble swallowing. Reports swelling to eyelids and clear leakage from eyes. 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 - Social history:: Smoking status: Patient denies any tobacco usage or history of. Patient uses alcohol, occasionally. - Family history:: not pertinent. - Hospitalizations: : No recent hospitalization is reported. ROS: 01:51 Constitutional: Negative for fever, chills, and weight loss, Eyes: Positive for rn swelling and redness to both eyes ENT: No stridor Respiratory: Speaking full sentences, unlabored Abdomen/GI: Negative for abdominal pain, nausea, vomiting, diarrhea, and constipation, Neuro: Negative for headache, weakness, numbness, tingling, and seizure. Exam: 01:51 Constitutional: This is a well developed, well nourished patient who is awake, alert, rn and in no acute distress. Ambulatory to room without difficulty or assistance Head/Face: Normocephalic, atraumatic. Eyes: Swelling bilateral periocular regions with eyelid swelling and scleral injection with clear drainage ENT: No stridor Cardiovascular: Regular rate and rhythm with a normal S1 and S2. No gallops, murmurs, or rubs. Normal PMI, no JVD. No pulse deficits. Respiratory: Speaking full sentences, unlabored. No increased work of breathing, no retractions or nasal flaring. Skin: No urticaria Neuro: Awake and alert, GCS 15 Vital Signs: 01:30 BP 113 / 79; Pulse 98; Resp 18; Temp 98.6; Pulse Ox 99% ; Weight 81.65 kg; Height 5 ft. al4 3 in. (160.02 cm); Pain 4/10; 01:35 BP 135 / 83 LA Sitting (auto/reg); Pulse 102 MON; Resp 20 S; Temp 98.6; Pulse Ox 100% tk1 on R/A; Pain 5/10; 02:30 BP 111 / 62 LA Supine (auto/reg); Pulse 77 MON; Resp 16 S; Pulse Ox 99% on R/A; tk1 03:18 BP 95 / 50 LA Supine (auto/reg); Pulse 69 MON; Resp 16; Pulse Ox 96% on R/A; tk1 04:03 BP 121 / 60 LA Sitting (auto/reg); Pulse 69; Resp 18; Pulse Ox 98% on R/A; tk1 01:30 Body Mass Index 31.89 (81.65 kg, 160.02 cm) al4 MDM: 01:39 Patient medically screened. rn 04:07 Differential diagnosis: acute allergic reaction, contact dermatitis. Data reviewed: rn vital signs, nurses notes, and as a result, I will discharge patient. Counseling: I had a detailed discussion with the patient and/or guardian regarding: the historical points, exam findings, and any diagnostic results supporting the discharge/admit diagnosis, the need for outpatient follow up, to return to the emergency department if symptoms worsen or persist or if there are any questions or concerns that arise at home. Response to treatment: the patient's symptoms have markedly improved after treatment, and as a result, I will discharge patient. ED course: Given tobradex here and given bottle to take at home Q6H, states is planning on f/u in AM to get rest of lashes removed, we were able to remove some with petroleum jelly. . 10/25 01:45 Order name: IV Start; Complete Time: 01:53 rn Administered Medications: 02:09 Drug: SOLU-Medrol (methylPrednisoLONE) 125 mg Route: IVP; Site: right forearm; tk1 02:09 Drug: Benadryl (diphenhydrAMINE) 50 mg Route: IVP; Site: right forearm; tk1 02:09 Drug: Pepcid (famotidine) 20 mg Route: IVP; Site: right forearm; tk1 03:29 Follow up: Decreased edema to bilateral upper and lower eyelids. Bilateral lids with tk1 continued redness. 04:11 Drug: TobraDEX (tobramycin-dexamethasone) Drops (0.3 %-0.1 %) 2 drops {Note: one drop bb administered to left eye will wait 15 minutes to ascertain allergic reaction will do both eyes if no allergic response.} Route: Ophthalmic; Site: left eye; Disposition Summary: 10/25/21 04:10 Discharge Ordered Location: Home rn Problem: new rn Symptoms: have improved rn Condition: Stable rn Diagnosis - Allergic dermatitis of left lower eyelid rn - Allergic dermatitis of left upper eyelid rn - Allergic dermatitis of right lower eyelid rn - Allergic dermatitis of right upper eyelid rn Followup: rn - With: Private Physician - When: As needed - Reason: Recheck today's complaints, Re-evaluation by your physician Discharge Instructions: - Discharge Summary Sheet rn - Contact Dermatitis rn Forms: - Medication Reconciliation Form rn - Thank You Letter rn - Antibiotic athletic training internship - Prescription Opioid Use rn Signatures: Slime Neri, RN RN Rodríguez Hardwick MD MD rn Ledbetter, Alexis al4 Kirby, Tammie tk1
[2021-10-25 04:58] VITALS: TEMP 98.6
[2021-10-25 05:04] VITALS: BP 121/60; O2SAT 98
== END 2021-10-25 04:33 | disposition home or self-care (01) ==
LOC: ER 01:16
DX: L23.9 Allergic contact dermatitis, unspecified cause (principal); Z88.0 Allergy status to penicillin; Z88.1 Allergy status to other antibiotic agents; Z88.2 Allergy status to sulfonamides; Z88.5 Allergy status to narcotic agent; Z91.048 Other nonmedicinal substance allergy status
CPT/HCPCS: 96375; 96374; 99283; J1200; J2930

== ENCOUNTER 2023-03-13 21:16 | Emergency (ER) | payer BC ==
--- OUTSIDE RECORDS SUMMARY | 2023-03-13 21:20 | XMS REPORT | Continuity of Care Document ---
:1990 Author Organization [facility] t Address [address] [place] [address] Care Team Providers Name Role Phone CYRUS SILVA JR Primary Care Physician Unavailable Ruddy DIAZ, Miguel Angel So Attending Clinician Ashlee Lamb Attending Clinician Unavailable Stacey Meehan Attending Clinician Unavailable Tanisah Baeza MD Attending Clinician TANISHA BAEZA Attending Clinician Unavailable Ashlee Lamb Admitting Clinician Unavailable Payers Payer Name Policy Type Policy Number Effective Date Expiration Date S ource Problems This patient has no known problems. Allergies, Adverse Reactions, Alerts Allergy Allergy Status Severity Reaction(s) Onset Inactive Treating Comm ents Source Name Type Date Date Clinician azithrom DA Active U RASH-UNKNOWN 2021-09 HC A ycin 1-24 [facility] [place] DA Active U UNKNOWN 2021-09 [facility] ins - [facility] [place] iodine DA Active U ANAPHYLACTIC 2021-09 [facility] 1-20 [facility] [place] codeine DA Active U NAUSEA, 2021-09 [facility] VOMITING 1-20 [facility] [place] cefaclor DA Active U RASH 2021-09 [facility] 1-20 [facility] [place] erythrom DA Active U UNKNOWN 2021-09 [facility] ycin 1-20 [facility] base 00:[facility] [place] codeine DA Active U NAUSEA, 2021-09 [facility] VOMITING 1-07 [facility] [place] cefaclor DA Active U RASH 2021-09 [facility] 1-07 [facility] [place] erythrom DA Active U UNKNOWN 2021-09 [facility] ycin 1- [facility]: [facility] [place] CODEINE DRUG Active Hives 2021-0 Univers INGREDI 5-12 ity of 00:00: [place] 00 [facility] Branch Azithrom Propensi Active Hives 2021-0 Univer s ycin ty to 5-12 ity of adverse 00:00: [place] reaction 00 Medical s Branch Cefaclor Propensi Active Hives 2021-0 Univer s ty to 5-12 ity of adverse 00:00: [place] reaction 00 Medical s Branch Codeine Propensi Active Hives 2021-0 Univers ty to 5-12 ity of adverse 00:00: [place] reaction 00 Medical s Branch Iodine Propensi Active Anaphylaxis 2021-0 Uni vers ty to 5-12 ity of adverse 00:00: [place] reaction 00 Medical s Branch IODINE DRUG Active Anaphylaxis 2021-0 Unive rs INGREDI 5-12 ity of 00:00: [place] 00 [facility] CEFACLOR DRUG Active Hives 2021-0 Univers INGREDI 5-12 ity of 00:00: [place] 00 [facility] AZITHROM DRUG Active Hives 2021-0 Univers YCIN INGREDI 5-12 ity of 00:00: [place] 00 [facility] codeine DA Active U NAUSEA, 2013-09 [facility] VOMITING 0-20 [facility] 00:[facility] [place] cefaclor DA Active U RASH 2013- [facility] 0-20 [facility] 00:[facility] [place] erythrom DA Active U UNKNOWN 2013- [facility] ycin 0-20 [facility] base 00:[facility]: [facility] [place] NO KNOWN Drug Active [facility] ALLERGIE Class ity of S [facility] Social History Social Habit Start Date Stop Date Quantity Comments Source Gender identity [facility] Sexual orientation [facility] Exposure to 2022-01-28 2022-02-07 Not sure [facility] SARS-CoV-2 (event) 00:00:00 03:14:00 [facility] Sex Assigned At [birth year] Met [facility] 00:00:00 00:00:00 Smoking Status Start Date Stop Date Source Tobacco smoking consumption unknown [facility] Medications Ordered Filled Start Stop Current Ordering Indication Dosage Frequency Signature Comments Components Source Medication Medication Date Date Medication? Clinician (SIG) Name Name NaCl 0.9% 1000mL at 999 Uni vers (NS) bolus 5-12 05-12 mL/hr, ity of infusion 09:45: 10:28 1,000 mL, Chun as 1,000 mL 00 :00 IV Medical Infusion, Branch ONCE, 1 dose, On Lesley 02/07/22 at 0445, STAT oseltamivir Yes [id number] 75mg Take 1 Univers (TAMIFLU) 5-12 capsule by ity of 75 mg 00:00: mouth 2 [place] capsule 00 (two) Medical times Branch daily. Vital Signs Vital Name Observation Time Observation Value Comments Source Systolic blood 2022-02-07 10:00:00 126 mm[Hg] Univer sity of pressure [facility] Diastolic blood 2022-02-07 10:00:00 75 mm[Hg] Unive rsity of [facility] Heart rate 2022-02-07 10:00:00 100 [facility] Respiratory rate 2022-02-07 10:00:00 185 /[facility] in 2022-02-07 10:00:00 91 /min [facility] Arterial blood by [facility] Pulse oximetry Branch Body temperature 2022-02-07 09:00:00 37.72 Shannan [facility] Body height 2022-02-07 08:16:00 160 cm [facility] Body weight 2022-02-07 08:16:00 81.647 kg [facility] BMI 2022-02-07 08:16:00 31.89 kg/m2 [facility] Procedures Procedure Date / Time Performing Source Performed Clinician PLATELET AGGREGATION PANEL 2022-12-19 14:57:00 [facility] VWD PANEL 2022-12-19 14:57:00 [facility] ospital THROMBOELASTOGRAPH 2022-12-19 14:57:00 [facility] CARDIOLIPIN ANTIBODIES 2022-12-19 14:57:00 [facility] MISCELLANEOUS REFERRAL TEST 2022-12-19 14:57:00 [facility] [id number] 2022-08-22 00:00:00 [facility] [id number] 2022-08-22 00:00:00 [facility] [id number] 2022-08-22 00:00:00 [facility] [id number] 2022-08-22 00:00:00 [facility] [id number] 2022-08-22 00:00:00 [facility] [id number] 2022-08-22 00:00:00 [facility] LACTIC ACID WHOLE BLOOD 2022-02-07 08:45:00 Tanisha Baeza [facility] LIPASE 2022-02-07 08:44:00 Tanisha Baeza [facility] COMP. METABOLIC PANEL 2022-02-07 08:44:00 Tanisha Baeza [facility] ([id number]) [facility] CBC WITH DIFF 2022-02-07 08:44:00 Tanisha Baeza [facility] URINALYSIS 2022-02-07 08:44:00 Tanisha Baeza [facility] RAPID STREP SCREEN FOR GROUP 2022-02-07 08:27:00 Tanisha Baeza [facility] A [facility] RAPID INFLUENZA A/B 2022-02-07 08:27:00 Tanisha Baeza [facility] COVID-19 (ID NOW RAPID 2022-02-07 08:27:00 Tanisha Baeza [facility] TESTING) Medical Branch NOTICE OF PRIVACY PRACTICES 2022-02-07 08:14:21 Doctor Neelam razo [facility] [place] [facility] CONSENT/REFUSAL FOR 2022-02-07 08:12:20 Doctor Gwen [facility] DIAGNOSIS AND TREATMENT [place] [facility] Plan of Care Planned Activity Planned Date Details Comments Source Future Scheduled 2023-02-05 COVID-19 VACCINE [facility] Test 11:56:03 (#1) [code = COVID-19 VACCINE (#1)] Future Scheduled 2023-02-05 [facility] Test 11:56:03 screening (procedure) [code = 091093695] Future Scheduled 2023-02-05 [facility] for [facility] Test 11:56:03 malignant neoplasm of cervix (procedure) [code = 913134470] Future Scheduled 2023-02-05 INFLUENZA VACCINE [facility] Test 11:56:03 [code = INFLUENZA VACCINE] Encounters Start End Encounter Admission Attending Care Care Encounter Source Date/Time Date/Time Type Type Clinicians Facility Department ID 2022-12-19 2022-12-19 Lab Fox, 1.2.840.1 [id number] Method[facility] 09:30:00 09:35:00 Miguel Angel H. [address].1.[address] 3.430.2.7 Hospit a .3.618341 l .8 2022-12-19 2022-12-19 Travel 1.2.840.1 [id number] [id number] [facility] 00:00:00 00:00:[address] 3.430.2.7 0.2.7.3.698 Ho spita .3.002966 084.8 l .8 2022-12-19 2022-12-19 Outpatient [facility] [id number] [place] 00:00:00 00:00:00 MIGUEL ANGEL [address] 2022-08-19 2022-08-24 Inpatient EM [facility] OBPP [id number] [facility] 02:04:00 15:00:00 Ashlee 39 [facility] 2022-08-05 2022-08-05 Emergency EM [facility]or[facility] TAMARA [id number] [facility] 15:24:00 18:25:00 Stacey 43 Woman' s [facility] 2022-02-07 2022-02-07 Emergency [facility] [id number] [id number] [facility] 03:20:00 05:28:00 Tanisha ROBLES 350.1.13.10 i ty of [place] 4.2.7.2.686 [facility] [id number] [place] [id number] Branch 2022-02-07 2022-02-07 Emergency [facility] [id number] Univers 03:20:00 05:28:00 TANISHA gracia [facility] Results Test Description Test Time Test Comments Results Result Comments Source Miscellaneous referral test 2022-12-24 22:54:00 Test Item Value Reference Range Interpretation Comme nts [facility] test name (test VWF multimer code = 2566) [facility] test result (test see comment VWF Q uantitative Multimer code = 1730) High MW Multime rs ............ 31 %Intermediate M W Multimers .... 46 %Low MW Multimer .............. 23 % VWF Multimer Distri bution: Normal - - - - - - - - - - - - - - - - - - - - - - - - - - - - - - VWF M ultimer Interpretation: Normal distribution of multimers; no evidence of type 2A, Type 2B or platelet- type von Willebrand defe ct by multimer analys is. Correlation wit h Factor VIII activity, other VWF assays and clinical hi story is suggested. =Reported: 11/28 14:45 performing site :[place] [address] [address] [place], [place] MISAEL (test code = MISAEL) VERSITITEST: VWF QUANTITATIVE MULTIMERFROZEN CITRATED PLASMADOS: 12/19/2022FEDEX [id number] [facility]2022-12-09 15:26:00 Test Item Value Reference Range Interpretation Comments SURGICAL (test code = SR) -----RUN DATE: 09/06/22 [facility] - [facility] PAGE 1 RUN TIME: 1526 Specimen Inquiry RUN USER: INTERFACE -----PATIENT: KATHERINE MARRUFO LOC: [facility] U #: [id number] AGE/SX: ROOM: [age] RE08/19/22REG DR: Ashlee Lamb MD : 89 BED: A DIS: 08/24/22 STATUS: DIS IN TLOC: ----- SPEC #: [id number] RECD: 08/26/22 STATUS: AMOR MARCH #: [id number] CHANDRA: 08/22/[address] [facility] [address]: Ashlee Lamb MD ENTERED: 08/26/22 SP TYPE: SURGICAL OTHR DR: DOES_NOT KNOW Mateo Burgos MD, Robert C MDORDERED: ANATOMIC SPEC, SPEC TRACK, [id number] COPIES TO: DOES_NOT KNOW Ashlee Lamb MD [address] [place] [address] [email or web address] Mateo Burgos MD [address] [place] [address] Sofia Hedrick MD [address] [place] [address] PROCEDURES: 16043 (08/26/22) TISSUES: A. PLACENTA, THIRD TRIMESTER (28 + WEEKS) FINAL DIAGNOSIS A. 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 CONTINUED ON NEXT PAGE -----RUN DATE: 09/06/22 [facility] PAGE 2 RUN TIME: 1526 Specimen Inquiry RUN USER: INTERFACE -----SPEC #: [id number] PATIENT: KATHERINE MARRUFO #[id number] (Continued) GROSS DESCRIPTION Received fixed, labeled with Patient's name, , MRN and "placenta", is a singletonplacenta with attached cord and membranes. The umbilical cord measures 34 cm in totallength, 1.3 cm in diameter, is centrally placed, 6 cm from the nearest placental edge, ispearl-white, smooth and glistening. Cross sectioning demonstrates 3 vessels. There are 4coils in 10 cm of cord. The membranes are tanner-bucio, smooth, with tanner patches andtranslucent. They have marginal attachment and are ruptured 3 cm from the disc edge. Theplacental disc is ovoid, measures 17.5 x 13.5 x 2.7 cm, and weighs 382 grams without themembranes and cord. The surface is purple-blue, smooth and glistening, with a singletan-white, firm nodule that is 2 x 1.5 cm, located at the edge. The maternal surfacetan-brown, with mild fibrin tissue scattered throughout; it is intact and complete. Serialsections through the disc show tanner-red, beefy parenchyma; with a fibrin/hemorrhagic nodulethat is 1.7 x 1.5 x 1.5 cm, located 2 cm away from the edge. Rabbet Operator sectionssubmitted as follows: A1: Membrane roll and cordA2-4: Disc cross-sections.A5: surface nodule.A6: Disc cross sectioned fibrin/hemorrhagic nodule.XZ 09/05/22 Technical component performed at [facility],[address], [place] [address] Unless gross only, the diagnosis is based upon microscopic examination.Immunohistochemis try: This test was developed and its performance characteristicsdetermined by this laboratory. It has not been approved nor does it need approval by Sue FDA. Appropriate positive and negative controls are reviewed and judged to beacceptable. This laboratory is certified under the Clinical Laboratory ImprovementAmendments (CLIA-88) as qualified to perform high complexity clinical laboratory testing. CLINICAL INFORMATION 08/22/22, 31 Y/O, , 34.6 WEEKS, PRE-E WITH SEVERE FEATURES. Signed SIGNATURE ON FILE Tyler Gillespie 09/06/22 1526 ----- END OF REPORT COMPREHENSIVE METABOLIC [id number] 10:04:00 Test Item Value Reference Range Interpretation Comments SODIUM (test code = 140 mEq/L 135-145 N NA) POTASSIUM (test code 3.6 mEq/L 3.5-5.0 N = K) CHLORIDE (test code 105 mEq/L 100-115 N = CL) CARBON DIOXIDE (test 30 mEq/L 22-31 N code = CO2) ANION GAP (test code 8.80 10-20 L = GAP) GLUCOSE (test code = 71 mg/dL 65-110 N GLU) BLOOD UREA NITROGEN 9 mg/dL 7-18 N (test code = BUN) GLOMERULAR 119 ml/min >60 N The Glomerular FILTRATION RATE Filtration R ate is a (test code = GFR) calculated parameterbased on serum Creatinine, pat ient age and sex. GFR va luesless than 60 mL/min/ 1.73 square meters a re indicative ofCh ronic Kidney Disease. Values less than 15 mL/min/1.73squa re meters indicate Kidney failure. The calculation for GFR is based on the CK D-EPI (2020) calculat ion. This formulais race indifferent and is the recommended for coreen for GFRby the Natio nal Kidney Foundati on for Adults.The GFR will not calculate if th e sex is unknown or if thepatient's ag e is <18 years. CREATININE (test 0.7 mg/dL 0.5-1.0 N code = CREAT) TOTAL PROTEIN (test 6.3 gm/dL 6.3-8.2 N code = PROT) ALBUMIN (test code = 2.3 gm/dL 3.4-4.8 L ALB) CALCIUM (test code = 8.4 mg/dL 8.4-10.2 N CA) BILIRUBIN TOTAL 0.1 mg/dL 0.2-1.0 L (test code = BILT) SGOT/AST (test code 13 units/L 15-37 L = AST) SGPT/ALT (test code 14 units/L 12-78 N = ALT) ALKALINE PHOSPHATASE 92 units/L 46-116 N TOTAL (test code = ALKP) CBC W/AUTO [id number] 09:33:00 Test Item Value Reference Range Interpretation Comments WHITE BLOOD CELL (test code = WBC) 15.1 K/mm3 6.5-12.3 H RED BLOOD CELL (test code = RBC) 2.70 M/mm3 3.51-4.69 L HEMOGLOBIN (test code = HGB) 7.7 g/dL 10.1-13.8 L HEMATOCRIT (test code = HCT) 24.8 % 32.5-41.8 L MEAN CELL VOLUME (test code = MCV) 91.9 fL 84.6-96.6 N MEAN CELL HGB (test code = MCH) 28.5 pg 27.3-33.9 N MEAN CELL HGB CONCETRATION (test 31.0 gm/dL 32.0-34.2 L code = MCHC) RED CELL DISTRIBUTION WIDTH (test 12.8 % 12.2-16.3 N code = RDW) PLATELET COUNT (test code = PLT) 228 K/mm3 134-363 N MEAN PLATELET VOLUME (test code = 11.8 fL 9.2-12.7 N MPV) NEUTROPHIL % (test code = NT%) 76.5 % 57.9-77.3 N LYMPHOCYTE % (test code = LY%) 14.6 % 14.5-29.7 N MONOCYTE % (test code = MO%) 6.0 % 3.6-10.2 N EOSINOPHIL % (test code = EO%) 2.0 % 0.0-3.0 N BASOPHIL % (test code = BA%) 0.3 % 0.1-0.9 N NEUTROPHIL # (test code = NT#) 11.5 K/mm3 LYMPHOCYTE # (test code = LY#) 2.2 K/mm3 MONOCYTE # (test code = MO#) 0.9 K/mm3 EOSINOPHIL # (test code = EO#) 0.30 K/mm3 BASOPHIL # (test code = BA#) 0.0 K/mm3 RBC MORPHOLOGY REQUIRED (test code NORMAL NORMAL = RBCM) PLATELET MORPHOLOGY REQUIRED (test NORMAL NORMAL code = PLTMR) COMPREHENSIVE METABOLIC [id number] 10:53:00 Test Item Value Reference Range Interpretation Comments SODIUM (test code = 137 mEq/L 135-145 N NA) POTASSIUM (test code 3.9 mEq/L 3.5-5.0 N = K) CHLORIDE (test code 106 mEq/L 100-115 N = CL) CARBON DIOXIDE (test 28 mEq/L 22-31 N code = CO2) ANION GAP (test code 6.90 10-20 L = GAP) GLUCOSE (test code = 104 mg/dL 65-110 N GLU) BLOOD UREA NITROGEN 11 mg/dL 7-18 N (test code = BUN) GLOMERULAR 119 ml/min >60 N The Glomerular FILTRATION RATE Filtration R ate is a (test code = GFR) calculated parameterbased on serum Creatinine, pat ient age and sex. GFR va luesless than 60 mL/min/ 1.73 square meters a re indicative ofCh ronic Kidney Disease. Values less than 15 mL/min/1.73squa re meters indicate Kidney failure. The calculation for GFR is based on the CK D-EPI (2020) calculat ion. This formulais race indifferent and is the recommended for coreen for GFRby the [facility] Kidney Foundati on for Adults.The GFR will not calculate if th e sex is unknown or if thepatient's ag e is <18 years. CREATININE (test 0.7 mg/dL 0.5-1.0 N code = CREAT) TOTAL PROTEIN (test 5.8 gm/dL 6.3-8.2 L code = PROT) ALBUMIN (test code = 2.1 gm/dL 3.4-4.8 L ALB) CALCIUM (test code = 7.6 mg/dL 8.4-10.2 L CA) BILIRUBIN TOTAL 0.1 mg/dL 0.2-1.0 L (test code = BILT) SGOT/AST (test code 17 units/L 15-37 N = AST) SGPT/ALT (test code 14 units/L 12-78 N = ALT) ALKALINE PHOSPHATASE 90 units/L 46-116 N TOTAL (test code = ALKP) CBC W/AUTO [id number] 10:14:00 Test Item Value Reference Range Interpretation Comments WHITE BLOOD CELL (test code = WBC) 9.9 K/mm3 6.5-12.3 N RED BLOOD CELL (test code = RBC) 2.65 M/mm3 3.51-4.69 L HEMOGLOBIN (test code = HGB) 7.5 g/dL 10.1-13.8 L HEMATOCRIT (test code = HCT) 24.3 % 32.5-41.8 L MEAN CELL VOLUME (test code = MCV) 91.7 fL 84.6-96.6 N MEAN CELL HGB (test code = MCH) 28.3 pg 27.3-33.9 N MEAN CELL HGB CONCETRATION (test 30.9 gm/dL 32.0-34.2 L code = MCHC) RED CELL DISTRIBUTION WIDTH (test 12.7 % 12.2-16.3 N code = RDW) PLATELET COUNT (test code = PLT) 185 K/mm3 134-363 N MEAN PLATELET VOLUME (test code = 11.7 fL 9.2-12.7 N MPV) NEUTROPHIL % (test code = NT%) 71.3 % 57.9-77.3 N LYMPHOCYTE % (test code = LY%) 21.5 % 14.5-29.7 N MONOCYTE % (test code = MO%) 5.1 % 3.6-10.2 N EOSINOPHIL % (test code = EO%) 1.1 % 0.0-3.0 N BASOPHIL % (test code = BA%) 0.4 % 0.1-0.9 N NEUTROPHIL # (test code = NT#) 7.1 K/mm3 LYMPHOCYTE # (test code = LY#) 2.1 K/mm3 MONOCYTE # (test code = MO#) 0.5 K/mm3 EOSINOPHIL # (test code = EO#) 0.11 K/mm3 BASOPHIL # (test code = BA#) 0.0 K/mm3 RBC MORPHOLOGY REQUIRED (test code NORMAL NORMAL = RBCM) PLATELET MORPHOLOGY REQUIRED (test NORMAL NORMAL code = PLTMR) COMPREHENSIVE METABOLIC [id number] 14:27:00 Test Item Value Reference Range Interpretation Comments SODIUM (test code = 138 mEq/L 135-145 N NA) POTASSIUM (test code 3.9 mEq/L 3.5-5.0 N = K) CHLORIDE (test code 105 mEq/L 100-115 N = CL) CARBON DIOXIDE (test 26 mEq/L 22-31 N code = CO2) ANION GAP (test code 10.50 10-20 N = GAP) GLUCOSE (test code = 87 mg/dL 65-110 N GLU) BLOOD UREA NITROGEN 11 mg/dL 7-18 N (test code = BUN) GLOMERULAR 119 ml/min >60 N The Glomerular FILTRATION RATE Filtration R ate is a (test code = GFR) calculated parameterbased on serum Creatinine, pat ient age and sex. GFR va luesless than 60 mL/min/ 1.73 square meters a re indicative ofCh ronic Kidney Disease. Values less than 15 mL/min/1.73squa re meters indicate Kidney failure. The calculation for GFR is based on the CK D-EPI (2020) calculat ion. This formulais race indifferent and is the recommended for coreen for GFRby the Natio nal Kidney Foundati on for Adults.The GFR will not calculate if th e sex is unknown or if thepatient's ag e is <18 years. CREATININE (test 0.7 mg/dL 0.5-1.0 N code = CREAT) TOTAL PROTEIN (test 5.1 gm/dL 6.3-8.2 L code = PROT) ALBUMIN (test code = 2.2 gm/dL 3.4-4.8 L ALB) CALCIUM (test code = 6.8 mg/dL 8.4-10.2 L CA) BILIRUBIN TOTAL 0.1 mg/dL 0.2-1.0 L (test code = BILT) SGOT/AST (test code 23 units/L 15-37 N = AST) SGPT/ALT (test code 25 units/L 12-78 N = ALT) ALKALINE PHOSPHATASE 98 units/L 46-116 N TOTAL (test code = ALKP) NURSE ADVISED SHE WILL DO THE LABS @1222C W/AUTO [id number] 13:14:00 Test Item Value Reference Range Interpretation Comments WHITE BLOOD CELL (test code = WBC) 11.7 K/mm3 6.5-12.3 N RED BLOOD CELL (test code = RBC) 2.76 M/mm3 3.51-4.69 L HEMOGLOBIN (test code = HGB) 7.9 g/dL 10.1-13.8 L HEMATOCRIT (test code = HCT) 24.9 % 32.5-41.8 L MEAN CELL VOLUME (test code = MCV) 90.2 fL 84.6-96.6 N MEAN CELL HGB (test code = MCH) 28.6 pg 27.3-33.9 N MEAN CELL HGB CONCETRATION (test 31.7 gm/dL 32.0-34.2 L code = MCHC) RED CELL DISTRIBUTION WIDTH (test 12.7 % 12.2-16.3 N code = RDW) PLATELET COUNT (test code = PLT) 223 K/mm3 134-363 N MEAN PLATELET VOLUME (test code = 11.9 fL 9.2-12.7 N MPV) NEUTROPHIL % (test code = NT%) 76.9 % 57.9-77.3 N LYMPHOCYTE % (test code = LY%) 15.5 % 14.5-29.7 N MONOCYTE % (test code = MO%) 6.8 % 3.6-10.2 N EOSINOPHIL % (test code = EO%) 0.3 % 0.0-3.0 N BASOPHIL % (test code = BA%) 0.2 % 0.1-0.9 N NEUTROPHIL # (test code = NT#) 9.0 K/mm3 LYMPHOCYTE # (test code = LY#) 1.8 K/mm3 MONOCYTE # (test code = MO#) 0.8 K/mm3 EOSINOPHIL # (test code = EO#) 0.03 K/mm3 BASOPHIL # (test code = BA#) 0.0 K/mm3 RBC MORPHOLOGY REQUIRED (test code NORMAL NORMAL = RBCM) PLATELET MORPHOLOGY REQUIRED (test NORMAL NORMAL code = PLTMR) NURSE ADVISED SHE WILL DO THE LABS @[id number] 20:56:00 Test Item Value Reference Range Interpretation Comments MAGNESIUM (test code = 5.0 mg/dL 1.8-2.4 HH RESUL TS CALLED TO [facility]) SHRAVAN SANTANA RN .READ BACK & CONFIRME D? Y.BY [id number] 08/21/222055. COMPREHENSIVE METABOLIC [id number] 19:49:00 Test Item Value Reference Range Interpretation Comments SODIUM (test code = 139 mEq/L 135-145 N NA) POTASSIUM (test code 4.0 mEq/L 3.5-5.0 N = K) CHLORIDE (test code 104 mEq/L 100-115 N = CL) CARBON DIOXIDE (test 26 mEq/L 22-31 N code = CO2) ANION GAP (test code 13.50 10-20 N = GAP) GLUCOSE (test code = 90 mg/dL 65-110 N GLU) BLOOD UREA NITROGEN 12 mg/dL 7-18 N (test code = BUN) GLOMERULAR 123 ml/min >60 N The Glomerular FILTRATION RATE Filtration R ate is a (test code = GFR) calculated parameterbased on serum Creatinin e, patient age and sex. GFR valuesless than 60 mL/min/1.73 squ are meters are shaw cative ofChronic Kidne y Disease. Values less than 15 mL/min/1.73squa re meters indicate Kidney failure. The calculation for GFR is based on the CK D-EPI (2020) calculat ion. This formulais race indifferent and is the recommended for coeren for GFRby the N [facility] Kidney Foundati on for Adults.The GFR will not calculate i f the sex is unknown or if thepatient's ag e is <18 years. CREATININE (test 0.6 mg/dL 0.5-1.0 N code = CREAT) TOTAL PROTEIN (test 5.9 gm/dL 6.3-8.2 L code = PROT) ALBUMIN (test code = 2.5 gm/dL 3.4-4.8 L ALB) CALCIUM (test code = 7.0 mg/dL 8.4-10.2 L CA) BILIRUBIN TOTAL 0.2 mg/dL 0.2-1.0 (test code = BILT) SGOT/AST (test code 31 units/L 15-37 = AST) SGPT/ALT (test code 23 units/L 12-78 N = ALT) ALKALINE PHOSPHATASE 105 units/L 46-116 N TOTAL (test code = ALKP) CBC W/AUTO [id number] 18:39:00 Test Item Value Reference Range Interpretation Comments WHITE BLOOD CELL (test code = WBC) 14.6 K/mm3 6.5-12.3 H RED BLOOD CELL (test code = RBC) 3.31 M/mm3 3.51-4.69 L HEMOGLOBIN (test code = HGB) 9.4 g/dL 10.1-13.8 L HEMATOCRIT (test code = HCT) 29.7 % 32.5-41.8 L MEAN CELL VOLUME (test code = MCV) 89.7 fL 84.6-96.6 N MEAN CELL HGB (test code = MCH) 28.4 pg 27.3-33.9 N MEAN CELL HGB CONCETRATION (test 31.6 gm/dL 32.0-34.2 L code = MCHC) RED CELL DISTRIBUTION WIDTH (test 12.7 % 12.2-16.3 N code = RDW) PLATELET COUNT (test code = PLT) 265 K/mm3 134-363 N MEAN PLATELET VOLUME (test code = 12.0 fL 9.2-12.7 N MPV) NEUTROPHIL % (test code = NT%) 77.8 % 57.9-77.3 H LYMPHOCYTE % (test code = LY%) 14.7 % 14.5-29.7 N MONOCYTE % (test code = MO%) 6.7 % 3.6-10.2 N EOSINOPHIL % (test code = EO%) 0.1 % 0.0-3.0 N BASOPHIL % (test code = BA%) 0.2 % 0.1-0.9 N NEUTROPHIL # (test code = NT#) 11.3 K/mm3 LYMPHOCYTE # (test code = LY#) 2.1 K/mm3 MONOCYTE # (test code = MO#) 1.0 K/mm3 EOSINOPHIL # (test code = EO#) 0.02 K/mm3 BASOPHIL # (test code = BA#) 0.0 K/mm3 RBC MORPHOLOGY REQUIRED (test code NORMAL NORMAL = RBCM) PLATELET MORPHOLOGY REQUIRED (test NORMAL NORMAL code = PLTMR) COMPREHENSIVE METABOLIC [id number] 04:13:00 Test Item Value Reference Range Interpretation Comments SODIUM (test code = 137 mEq/L 135-145 N NA) POTASSIUM (test code 3.9 mEq/L 3.5-5.0 N = K) CHLORIDE (test code 105 mEq/L 100-115 N = CL) CARBON DIOXIDE (test 24 mEq/L 22-31 N code = CO2) ANION GAP (test code 11.90 10-20 N = GAP) GLUCOSE (test code = 96 mg/dL 65-110 N GLU) BLOOD UREA NITROGEN 12 mg/dL 7-18 N (test code = BUN) GLOMERULAR 123 ml/min >60 N The Glomerular FILTRATION RATE Filtration R ate is a (test code = GFR) calculated parameterbased on serum Creatinin e, patient age and sex. GFR valuesless than 60 mL/min/1.73 squ are meters are shaw cative ofChronic Kidne y Disease. Values less than 15 mL/min/1.73squa re meters indicate Kidney failure. The calculation for GFR is based on the CK D-EPI (2020) calculat ion. This formulais race indifferent and is the recommended for coreen for GFRby the [facility] on for Adults.The GFR will not calculate i f the sex is unknown or if thepatient's ag e is <18 years. CREATININE (test 0.6 mg/dL 0.5-1.0 N code = CREAT) TOTAL PROTEIN (test 6.1 gm/dL 6.3-8.2 L code = PROT) ALBUMIN (test code = 2.5 gm/dL 3.4-4.8 L ALB) CALCIUM (test code = 8.1 mg/dL 8.4-10.2 L CA) BILIRUBIN TOTAL 0.1 mg/dL 0.2-1.0 L (test code = BILT) SGOT/AST (test code 20 units/L 15-37 N = AST) SGPT/ALT (test code 17 units/L 12-78 N = ALT) ALKALINE PHOSPHATASE 102 units/L 46-116 N TOTAL (test code = ALKP) CBC W/AUTO [id number] 04:09:00 Test Item Value Reference Range Interpretation Comments WHITE BLOOD CELL (test code = WBC) 12.8 K/mm3 6.5-12.3 H RED BLOOD CELL (test code = RBC) 2.99 M/mm3 3.51-4.69 L HEMOGLOBIN (test code = HGB) 8.4 g/dL 10.1-13.8 L HEMATOCRIT (test code = HCT) 26.7 % 32.5-41.8 L MEAN CELL VOLUME (test code = MCV) 89.3 fL 84.6-96.6 N MEAN CELL HGB (test code = MCH) 28.1 pg 27.3-33.9 N MEAN CELL HGB CONCETRATION (test 31.5 gm/dL 32.0-34.2 L code = MCHC) RED CELL DISTRIBUTION WIDTH (test 12.6 % 12.2-16.3 N code = RDW) PLATELET COUNT (test code = PLT) 239 K/mm3 134-363 N MEAN PLATELET VOLUME (test code = 12.2 fL 9.2-12.7 N MPV) NEUTROPHIL % (test code = NT%) 73.5 % 57.9-77.3 N LYMPHOCYTE % (test code = LY%) 18.3 % 14.5-29.7 N MONOCYTE % (test code = MO%) 7.6 % 3.6-10.2 N EOSINOPHIL % (test code = EO%) 0.0 % 0.0-3.0 N BASOPHIL % (test code = BA%) 0.1 % 0.1-0.9 N NEUTROPHIL # (test code = NT#) 9.4 K/mm3 LYMPHOCYTE # (test code = LY#) 2.3 K/mm3 MONOCYTE # (test code = MO#) 1.0 K/mm3 EOSINOPHIL # (test code = EO#) 0 K/mm3 BASOPHIL # (test code = BA#) 0.0 K/mm3 RBC MORPHOLOGY REQUIRED (test code NORMAL NORMAL = RBCM) PLATELET MORPHOLOGY REQUIRED (test NORMAL NORMAL code = PLTMR) RUPTURE OF [id number] 02:15:00 Test Item Value Reference Range Interpretation Comments RUPTURE OF MEMBRANES (test code NON-RUPTURED = ROM) COMPREHENSIVE METABOLIC [id number] 07:09:00 Test Item Value Reference Range Interpretation Comments SODIUM (test code = 135 mEq/L 135-145 N NA) POTASSIUM (test code 4.0 mEq/L 3.5-5.0 N = K) CHLORIDE (test code 104 mEq/L 100-115 N = CL) CARBON DIOXIDE (test 22 mEq/L 22-31 N code = CO2) ANION GAP (test code 12.80 10-20 N = GAP) GLUCOSE (test code = 114 mg/dL 65-110 H GLU) BLOOD UREA NITROGEN 9 mg/dL 7-18 N (test code = BUN) GLOMERULAR 119 ml/min >60 N The Glomerular FILTRATION RATE Filtration R ate is a (test code = GFR) calculated parameterbased on serum Creatinin e, patient age and sex. GFR valuesless than 60 mL/min/1.73 squ are meters are shaw cative ofChronic Kidne y Disease. Values less than 15 mL/min/1.73squa re meters indicate Kidney failure. The calculation for GFR is based on the CK D-EPI (2020) calculat ion. This formulais race indifferent and is the recommended for coreen for [facility]by the [facility] on for Adults.The GFR will not calculate i f the sex is unknown or if thepatient's ag e is <18 years. CREATININE (test 0.7 mg/dL 0.5-1.0 N code = CREAT) TOTAL PROTEIN (test 6.2 gm/dL 6.3-8.2 L code = PROT) ALBUMIN (test code = 2.5 gm/dL 3.4-4.8 L ALB) CALCIUM (test code = 8.1 mg/dL 8.4-10.2 L CA) BILIRUBIN TOTAL 0.1 mg/dL 0.2-1.0 L (test code = BILT) SGOT/AST (test code 16 units/L 15-37 N = AST) SGPT/ALT (test code 13 units/L 12-78 N = ALT) ALKALINE PHOSPHATASE 110 units/L 46-116 N TOTAL (test code = ALKP) CBC W/AUTO [id number] 07:05:00 Test Item Value Reference Range Interpretation Comments WHITE BLOOD CELL (test code = WBC) 11.1 K/mm3 6.5-12.3 N RED BLOOD CELL (test code = RBC) 3.06 M/mm3 3.51-4.69 L HEMOGLOBIN (test code = HGB) 8.7 g/dL 10.1-13.8 L HEMATOCRIT (test code = HCT) 27.2 % 32.5-41.8 L MEAN CELL VOLUME (test code = MCV) 88.9 fL 84.6-96.6 N MEAN CELL HGB (test code = MCH) 28.4 pg 27.3-33.9 N MEAN CELL HGB CONCETRATION (test 32.0 gm/dL 32.0-34.2 N code = MCHC) RED CELL DISTRIBUTION WIDTH (test 12.4 % 12.2-16.3 N code = RDW) PLATELET COUNT (test code = PLT) 224 K/mm3 134-363 N MEAN PLATELET VOLUME (test code = 12.2 fL 9.2-12.7 N MPV) NEUTROPHIL % (test code = NT%) 87.7 % 57.9-77.3 H LYMPHOCYTE % (test code = LY%) 9.7 % 14.5-29.7 L MONOCYTE % (test code = MO%) 1.6 % 3.6-10.2 L EOSINOPHIL % (test code = EO%) 0.0 % 0.0-3.0 N BASOPHIL % (test code = BA%) 0.1 % 0.1-0.9 N NEUTROPHIL # (test code = NT#) 9.8 K/mm3 LYMPHOCYTE # (test code = LY#) 1.1 K/mm3 MONOCYTE # (test code = MO#) 0.2 K/mm3 EOSINOPHIL # (test code = EO#) 0 K/mm3 BASOPHIL # (test code = BA#) 0.0 K/mm3 RBC MORPHOLOGY REQUIRED (test code NORMAL NORMAL = RBCM) PLATELET MORPHOLOGY REQUIRED (test NORMAL NORMAL code = PLTMR) UR CREATININE CLEARANCE [id number] 06:05:00 Test Item Value Reference Range Interpretation Comments CREATININE CLEARANCE RESULT (test 158 ml/min 70-120 H code = CREATCLR) CREATININE (test code = CREAT) 0.7 mg/dL 0.5-1.0 N UR CREATININE RANDOM (test code = 123.5 mg/dL CREATU) UR VOLUME (test code = VOL) 1300 ML UR PROTEIN [id number] 06:05:00 Test Item Value Reference Range Interpretation Comments UR PROTEIN RANDOM 39.6 mg/dL (test code = PROTU) UR PROTEIN 24HR (test 515 mg/24HR 20-150 HH RESULT S CALLED TO code = OGVY10I) THUAN BARTHOLOMEW.READ BACK & CONFIRMED? JUDY MerrittBY FRamírezLAB.IR1 08/20 0604.Units for 24 HR Urine Protein h ave changed: New Un its = MG/24HR RUPTURE OF [id number] 09:58:00 Test Item Value Reference Range Interpretation Comments RUPTURE OF MEMBRANES (test code NON-RUPTURED = ROM) AG HEPATITIS B [id number] 03:27:00 Test Item Value Reference Range Interpretation Comments AG HEPATITIS B SURFACE (test code NONREACTIVE NONREACTIVE = HBSAG) AB HEPATITIS C [id number] 03:27:00 Test Item Value Reference Range Interpretation Comments AB HEPATITIS C (test code = NONREACTIVE NONREACTIVE HCVAB) SIGNAL TO CUTOFF (test code = 0.13 <0.80 N CUTOFF) AB [id number] 03:27:00 Test Item Value Reference Range Interpretation Comments AB TREPONEMA (test code = TREPAB) NONREACTIVE NONREACTIVE COMPREHENSIVE METABOLIC [id number] 00:54:00 Test Item Value Reference Range Interpretation Comments SODIUM (test code = 138 mEq/L 135-145 N NA) POTASSIUM (test code 3.8 mEq/L 3.5-5.0 N = K) CHLORIDE (test code 104 mEq/L 100-115 N = CL) CARBON DIOXIDE (test 28 mEq/L 22-31 N code = CO2) ANION GAP (test code 9.70 10-20 L = GAP) GLUCOSE (test code = 100 mg/dL 65-110 N GLU) BLOOD UREA NITROGEN 11 mg/dL 7-18 N (test code = BUN) GLOMERULAR 119 ml/min >60 N The Glomerular FILTRATION RATE Filtration R ate is a (test code = GFR) calculated parameterbased on serum Creatinin e, patient age and sex. GFR valuesless than 60 mL/min/1.73 squ are meters are shaw cative ofChronic Kidne y Disease. Values less than 15 mL/min/1.73squa re meters indicate Kidney failure. The calculation for GFR is based on the CK D-EPI (2020) calculat ion. This formulais race indifferent and is the recommended for coreen for GFRby the [facility] for Adults.The GFR will not calculate i f the sex is unknown or if thepatient's ag e is <18 years. CREATININE (test 0.7 mg/dL 0.5-1.0 N code = CREAT) TOTAL PROTEIN (test 6.2 gm/dL 6.3-8.2 L code = PROT) ALBUMIN (test code = 2.4 gm/dL 3.4-4.8 L ALB) CALCIUM (test code = 8.5 mg/dL 8.4-10.2 N CA) BILIRUBIN TOTAL 0.1 mg/dL 0.2-1.0 L (test code = BILT) SGOT/AST (test code 15 units/L 15-37 N = AST) SGPT/ALT (test code 10 units/L 12-78 L = ALT) ALKALINE PHOSPHATASE 114 units/L 46-116 N TOTAL (test code = ALKP) UR PROTEIN/CREATININE [id number] 00:54:00 Test Item Value Reference Range Interpretation Comments UR PROTEIN RANDOM (test code = 52.3 mg/dL PROTU) UR CREATININE RANDOM (test 189.2 mg/dL code = CREATU) PROTEIN/CREATININE RATIO (test 276.4 mg/gcrea <200 H code = P/CRATIO) CBC W/AUTO [id number] 00:26:00 Test Item Value Reference Range Interpretation Comments WHITE BLOOD CELL (test code = WBC) 10.4 K/mm3 6.5-12.3 N RED BLOOD CELL (test code = RBC) 3.23 M/mm3 3.51-4.69 L HEMOGLOBIN (test code = HGB) 9.2 g/dL 10.1-13.8 L HEMATOCRIT (test code = HCT) 28.5 % 32.5-41.8 L MEAN CELL VOLUME (test code = MCV) 88.2 fL 84.6-96.6 N MEAN CELL HGB (test code = MCH) 28.5 pg 27.3-33.9 N MEAN CELL HGB CONCETRATION (test 32.3 gm/dL 32.0-34.2 N code = MCHC) RED CELL DISTRIBUTION WIDTH (test 12.1 % 12.2-16.3 L code = RDW) PLATELET COUNT (test code = PLT) 242 K/mm3 134-363 N MEAN PLATELET VOLUME (test code = 11.9 fL 9.2-12.7 N MPV) NEUTROPHIL % (test code = NT%) 70.2 % 57.9-77.3 N LYMPHOCYTE % (test code = LY%) 22.2 % 14.5-29.7 N MONOCYTE % (test code = MO%) 6.2 % 3.6-10.2 N EOSINOPHIL % (test code = EO%) 0.7 % 0.0-3.0 N BASOPHIL % (test code = BA%) 0.4 % 0.1-0.9 N NEUTROPHIL # (test code = NT#) 7.3 K/mm3 LYMPHOCYTE # (test code = LY#) 2.3 K/mm3 MONOCYTE # (test code = MO#) 0.6 K/mm3 EOSINOPHIL # (test code = EO#) 0.07 K/mm3 BASOPHIL # (test code = BA#) 0.0 K/mm3 RBC MORPHOLOGY REQUIRED (test code NORMAL NORMAL = RBCM) PLATELET MORPHOLOGY REQUIRED (test NORMAL NORMAL code = PLTMR) COMPREHENSIVE METABOLIC [id number] 17:30:00 Test Item Value Reference Range Interpretation Comments SODIUM (test code = 139 mEq/L 135-145 N NA) POTASSIUM (test code 3.3 mEq/L 3.5-5.0 L = K) CHLORIDE (test code 106 mEq/L 100-115 N = CL) CARBON DIOXIDE (test 26 mEq/L 22-31 N code = CO2) ANION GAP (test code 10.80 10-20 N = GAP) GLUCOSE (test code = 91 mg/dL 65-110 N GLU) BLOOD UREA NITROGEN 7 mg/dL 7-18 N (test code = BUN) GLOMERULAR 129 ml/min >60 N The Glomerular FILTRATION RATE Filtration R ate is a (test code = GFR) calculated parameterbased on serum Creatinine, pat ient age and sex. GFR va luesless than 60 mL/min/ 1.73 square meters a re indicative ofCh ronic Kidney Disease. Values less than 15 mL/min/1.73squa re meters indicate Kidney failure. The calculation for GFR is based on the CK D-EPI (2020) calculat ion. This formulais race indifferent and is the recommended for coreen for GFRby the [facility] on for Adults.The GFR will not calculate if th e sex is unknown or if thepatient's ag e is <18 years. CREATININE (test 0.5 mg/dL 0.5-1.0 N code = CREAT) TOTAL PROTEIN (test 6.2 gm/dL 6.3-8.2 L code = PROT) ALBUMIN (test code = 2.3 gm/dL 3.4-4.8 L ALB) CALCIUM (test code = 8.5 mg/dL 8.4-10.2 N CA) BILIRUBIN TOTAL 0.1 mg/dL 0.2-1.0 L (test code = BILT) SGOT/AST (test code 12 units/L 15-37 L = AST) SGPT/ALT (test code 12 units/L 12-78 N = ALT) ALKALINE PHOSPHATASE 89 units/L 46-116 N TOTAL (test code = ALKP) URIC [id number] 17:20:00 Test Item Value Reference Range Interpretation Comments URIC ACID (test code = URIC) 4.0 mg/dL 2.6-6.0 N LACTIC DEHYDROGENASE(LDH)2022-08-05 17:20:00 Test Item Value Reference Range Interpretation Comments LACTIC DEHYDROGENASE(LDH) (test 135 units/L 81-234 N code = LDH) UR PROTEIN/CREATININE [id number] 16:49:00 Test Item Value Reference Range Interpretation Comments UR PROTEIN RANDOM (test code = 24.7 mg/dL PROTU) UR CREATININE RANDOM (test 179.1 mg/dL code = CREATU) PROTEIN/CREATININE RATIO (test 137.9 mg/gcrea <200 code = P/CRATIO) URINALYSIS [id number] 16:05:00 Test Item Value Reference Range Interpretation Comments UA COLOR (test code = COLU) YELLOW YELLOW UA APPEARANCE (test code = Slightly-Cloudy CLEAR APPU) UA GLUCOSE DIPSTICK (test NEGATIVE NEG code = DGLUU) UA BILIRUBIN DIPSTICK (test NEGATIVE NEG code = BILU) UA KETONE DIPSTICK (test code NEGATIVE NEG = KETU) UA SPECIFIC GRAVITY (test 1.021 1.001-1.035 N code = SGU) UA BLOOD DIPSTICK (test code NEG NEG = PHONG) UA PH DIPSTICK (test code = 6.0 5-9 DELGADO) UA PROTEIN DIPSTICK (test NEGATIVE NEG code = PROU) UA UROBILINIOGEN DIPSTICK NEGATIVE mg/dL NEG (test code = URO) UA NITRITE DIPSTICK (test NEG NEG code = JANELLE) UA LEUKOCYTE ESTERASE TRACE NEG A DIPSTICK (test code = LEUU) UA WBC (test code = WBCU) 0-2 #/hpf NONE SEEN UA RBC (test code = RBCU) 0-2 #/hpf NONE SEEN UA EPITHELIAL CELLS (test RARE #/HPF RARE-FEW code = EPIU) UA BACTERIA (test code = RARE /HPF RARE-FEW BACU) UA MUCUS (test code = MUCU) 4+ NONE SEEN URINE SAMPLE: CLEAN CATCHCBC W/AUTO [id number] 15:58:00 Test Item Value Reference Range Interpretation Comments WHITE BLOOD CELL (test code = WBC) 10.2 K/mm3 6.5-12.3 N RED BLOOD CELL (test code = RBC) 3.30 M/mm3 3.51-4.69 L HEMOGLOBIN (test code = HGB) 9.5 g/dL 10.1-13.8 L HEMATOCRIT (test code = HCT) 29.4 % 32.5-41.8 L MEAN CELL VOLUME (test code = MCV) 89.1 fL 84.6-96.6 N MEAN CELL HGB (test code = MCH) 28.8 pg 27.3-33.9 N MEAN CELL HGB CONCETRATION (test 32.3 gm/dL 32.0-34.2 N code = MCHC) RED CELL DISTRIBUTION WIDTH (test 12.3 % 12.2-16.3 N code = RDW) PLATELET COUNT (test code = PLT) 251 K/mm3 134-363 N MEAN PLATELET VOLUME (test code = 11.3 fL 9.2-12.7 N MPV) NEUTROPHIL % (test code = NT%) 71.9 % 57.9-77.3 N LYMPHOCYTE % (test code = LY%) 20.3 % 14.5-29.7 N MONOCYTE % (test code = MO%) 5.8 % 3.6-10.2 N EOSINOPHIL % (test code = EO%) 1.4 % 0.0-3.0 N BASOPHIL % (test code = BA%) 0.3 % 0.1-0.9 N NEUTROPHIL # (test code = NT#) 7.3 K/mm3 LYMPHOCYTE # (test code = LY#) 2.1 K/mm3 MONOCYTE # (test code = MO#) 0.6 K/mm3 EOSINOPHIL # (test code = EO#) 0.14 K/mm3 BASOPHIL # (test code = BA#) 0.0 K/mm3 RBC MORPHOLOGY REQUIRED (test code NORMAL NORMAL = RBCM) PLATELET MORPHOLOGY REQUIRED (test NORMAL NORMAL code = PLTMR) COMP. METABOLIC PANEL (41804)2022-02-07 09:44:25 Test Item Value Reference Range Interpretation Comments NA (test code = 137 mmol/L 135-145 8925669598) K (test code = 3.9 mmol/L 3.5-5.0 1576054627) CL (test code = 102 mmol/L 98-108 8416196473) CO2 TOTAL (test code = 23 mmol/L 23-31 0034090790) AGAP (test code = 2-16 5482348202) BUN (test code = 4 mg/dL 7-23 L 0607077107) GLUCOSE (test code = 95 mg/dL 70-110 2483475533) CREATININE (test code = 0.63 mg/dL 0.50-1.04 4297152751) TOTAL BILI (test code = 0.4 mg/dL 0.1-1.7 3123309665) CALCIUM (test code = 9.3 mg/dL 8.6-10.6 5235712761) T PROTEIN (test code = 7.9 g/dL 6.3-8.2 2989520677) ALBUMIN (test code = 4.8 g/dL 3.5-5.0 4530526581) ALK PHOS (test code = 51 U/L 34-122 9652984148) ALTv (test code = 43 U/L 5-35 H 1742-6) AST(SGOT) (test code = 32 U/L 13-40 4328288375) eGFR (test code = mL/min/1.73m2 4187951124) MISAEL (test code = MISAEL) Association of Glomerular Filtration Rate (GFR) and Staging of Kidney Disease* + --+ --+ ------+| GFR (mL/min/1.73 m2) ?| With Kidney Damage ?| ?Without Kidney Damage+ --------+ --------+ +| ?>90 ?| ?Stage one ?| ? Normal ?+ ---+ ---+ -------+| ?60-89 ?| ?Stage two ?| ? Decreased GFR ? + --+ --+ ------+| ?30-59 ?| ?Stage three ?| ? Stage three ? + --+ --+ ------+| ?15-29 ?| ?Stage four ? | ? Stage four ?+ ---+ ---+ -------+| ?<15 (or dialysis) ? ?| ?Stage five ? | ? Stage five ?+ ---+ ---+ -------+ *Each stage assumes the associated GFR level has been in effect for at least three months. ?Stages 1 to 5, with or without kidney disease, indicate chronic kidney disease. Notes: Determination of stages one and two (with eGFR >59mL/min/1.73 m2) requires estimation of kidney damage for at least three months as defined by structural or functional abnormalities of the kidney, manifested by either:Pathological abnormalities or Markers of kidney damage (including abnormalities in the composition of the blood or urine or abnormalities in imaging tests). Lab Interpretation Abnormal (test code = 16914-0) [facility] Test Item Value Reference Range Interpretation Comments LIPASE (test code = 1030330189) 91 U/L 0-220 Lab Interpretation (test code = Normal 60641-2) [facility] WITH [id number] 09:05:21 Test Item Value Reference Range Interpretation Comments WBC (test code = See_Comment [Automated 0914-2) message] The sy stem which generated this result transmitted reference range : 4.30 - 11.10 10*3/?L. The reference range was not used to interpret this result as normal/abnormal . RBC (test code = See_Comment [Automated 965-4) message] The sy stem which generated this result transmitted reference range : 3.93 - 5.25 10*6/?L. The reference range was not used to interpret this result as normal/abnormal . HGB (test code = 12.5 g/dL 11.6-15.0 718-7) HCT (test code = 39.1 % 35.7-45.2 4544-3) MCV (test code = 86.9 fL 80.6-95.5 787-2) MCH (test code = 27.8 pg 25.9-32.8 785-6) MCHC (test code = 32.0 g/dL 31.6-35.1 786-4) RDW-SD (test code = 41.8 fL 39.0-49.9 39518-2) RDW-CV (test code = 13.2 % 12.0-15.5 788-0) PLT (test code = See_Comment [Automated 777-3) message] The sy stem which generated this result transmitted reference range : 166 - 358 10*3/ ?L. The reference r coreen was not used to interpret this result as normal/abnormal . MPV (test code = 10.6 fL 9.5-12.9 81013-4) NRBC/100 WBC (test See_Comment [Automat ed code = 4698998767) message] The system which generated this result transmitted reference range : 0.0 - 10.0 /100 WBCs. The refer ence range was not u sed to interpret th is result as normal/abnormal . NRBC x10^3 (test code <0.01 See_Comment [Auto mated = 0590604349) message] The s ystem which generated this result transmitted reference range : 10*3/?L. The reference range was not used to interpret this result as normal/abnormal . GRAN MAT (NEUT) % 76.2 % (test code = 770-8) IMM GRAN % (test code 0.20 % = 1335815385) LYMPH % (test code = 13.4 % 736-9) MONO % (test code = 9.1 % 5905-5) EOS % (test code = 0.4 % 713-8) BASO % (test code = 0.7 % 706-2) GRAN MAT x10^3(ANC) 7.36 10*3/uL 1.88-7.09 H (test code = 7662309144) IMM GRAN x10^3 (test <0.03 0.00-0.06 code = 2635102636) LYMPH x10^3 (test code 1.30 10*3/uL 1.32-3.29 L = 731-0) MONO x10^3 (test code 0.88 10*3/uL 0.33-0.92 = 742-7) EOS x10^3 (test code = 0.04 10*3/uL 0.03-0.39 711-2) BASO x10^3 (test code 0.07 10*3/uL 0.01-0.07 = 704-7) Lab Interpretation Abnormal (test code = 33718-0) [facility] Notes Date/Time Note Provider Source 2022-09-11 07:24:00-00:00 [id number] [facility] [address] [place], [place] [address] PATIENT NAME: KATHERINE MARRUFO ADMIT DATE: ACCOUNT NO: [id number] ROOM NO: AGE: 31 SEX: F ADMITTING PHYSICIAN: Ashlee Lamb MD ATTENDING PHYSICIAN: Ashlee Lamb MD Provider Query QUERY TEXT: Condition Blood 360MD Query related questions should be directed to: Joleen larson [facility] [place] Coding Query Helpline Based on your clinical judgment, can you provide the known or suspected condition(s) that represent(s) the clinical indicators listed below? The medical record reflects the diagnosis/proced ure of [Insert diagnosis/procedure] and associated [In sert disease process, trauma or surgery]. [Insert so urce document(s) and date(s)]: The patient's Clinical Indicators include: HEMATOCRIT (%) 24.8L 24.3L 24.9L 29.7L 26.7L 27. 2L 28.5L- lab HEMOGLOBIN (g/dL) 7.7L 7.5L 7.9L 9.4L 8.4L 8.7L 9.2L- lab FERROUS SULFATE 325 MG TABLET- mar chronic iron deficiency anemia-OB Discharge Post 08/24/2022 (2) Blood Loss (During Delivery): 400-Inpatient Summ mik 08/24/2022 (3) Options provided: -- Blood loss anemia, Please specify the acuity (i.e., acute, chronic, acute on chronic). -- Anemia of chronic disease, Please specify the chronic disease. -- Iron deficiency anemia -- Chemotherapy induced anemia, Please specify d rug. -- Drug induced anemia, Please specify drug. -- Idiopathic aplastic anemia -- Neoplastic anemia -- Other - I will add my own diagnosis -- Dismiss - Not applicable / Not valid -- Dismiss - Clinically unable to determine / Un known -- Assign to another provider QUERY RESPONSE: The patient anemia of chronic disease. chronic a nemia from and history of bariatric surgery Query created by: JORDYN FARRAR on 2 9:36 PM Electronically Signed by Ashlee Lamb MD o n 09/11/22 at 0724 PATIENT NAME: KATHERINE MARRUFO ACCOUNT #: [id number] 2022-08-24 11:49:00-00:00 [facility] ([facility]) OB Disch REPORT#:[id number] REPORT STATUS: Signed DATE:08/24/22 TIME: 1149 PATIENT: KATHERINE MARRUFO UNIT #: [id number] ROOM/BED: [facility] : 90 AGE: 31 SEX: F ATTEND: Grace Lamb MD ADM AUTHOR: Sarai Taylor MD * ALL edits or amendments must be made on the [employer]/computer document * Subjective Subjective Admission EGA: Weeks: 34 Days: 3 EGA at delivery (wks/days): 34 WEEKS Status/day: post (day 1) Patient reports: Patient reports: Yes: normal lochia, pain management effective, tolerating po well, voiding well, tolerating ambulation. No: complaints. Objective General VS: Vital Signs: Date Time Temp Pulse Resp B/P B/P Pulse O2 O2 F low FiO2 Mean Ox Delivery Rate 08/24 0826 97.9 84 18 147/87 94 08/24 0405 97.8 85 18 127/76 08/23 2240 98.6 92 18 127/89 99 08/23 1630 98.9 79 18 138/84 99 08/23 1230 98.2 82 18 134/84 99 Vital Signs Date Temp Pulse Resp B/P B/P Mean Pulse Ox FiO2 08/23-08/24 97.8-98.9 79-92 18 127-147/76-89 94 -99 Last Documented: Result Date Time Pulse Ox 94 08/24 826 B/P 147/87 08/24 826 Temp 97.9 08/24 826 Pulse 84 08/24 826 Resp 18 08/24 826 B/P Mean 91.0 08/22 06 PATIENT WEIGHT: Weight (lb): 220 Weight (oz): 7.4 Weight (kg): 100.000 Physical Exam Lungs: unlabored breathing Neuro: Exam: alert, oriented x3, normal speech, normal gait Abdomen: post gravid, soft, no abnormal tenderne ss Uterus: non-tender Fundus: firm, below the umbilicus Lochia: normal Lower extremities: Edema: 1+ pitting Calf tenderness: negative Results Findings/Data: Laboratory Tests: 08/24 0952 1300 Chemistry Sodium (135 - 145 mEq/L) 140 137 138 Potassium (3.5 - 5.0 mEq/L) 3.6 3.9 3.9 Chloride (100 - 115 mEq/L) 105 106 105 Carbon Dioxide (22 - 31 mEq/L) 30 28 26 Anion Gap (10 - 20) 8.80 L 6.90 L 10.50 BUN (7 - 18 mg/dL) 9 11 11 Creatinine (0.5 - 1.0 mg/dL) 0.7 0.7 0.7 Glomerular Filtr Rate (>60 ml/min) 119 119 119 Glucose (65 - 110 mg/dL) 71 104 87 Calcium (8.4 - 10.2 mg/dL) 8.4 7.6 L 6.8 L Total Bilirubin (0.2 - 1.0 mg/dL) 0.1 L 0.1 L 0 .1 L AST (15 - 37 units/L) 13 L 17 23 ALT (12 - 78 units/L) 14 14 25 Total Alk Phosphatase (46 - 116 units/L) 92 90 98 Total Protein (6.3 - 8.2 gm/dL) 6.3 5.8 L 5.1 L Albumin (3.4 - 4.8 gm/dL) 2.3 L 2.1 L 2.2 L Hematology WBC (6.5 - 12.3 K/mm3) 15.1 H 9.9 11.7 RBC (3.51 - 4.69 M/mm3) 2.70 L 2.65 L 2.76 L Hgb (10.1 - 13.8 g/dL) 7.7 L 7.5 L 7.9 L Hct (32.5 - 41.8 %) 24.8 L 24.3 L 24.9 L MCV (84.6 - 96.6 fL) 91.9 91.7 90.2 MCH (27.3 - 33.9 pg) 28.5 28.3 28.6 MCHC (32.0 - 34.2 gm/dL) 31.0 L 30.9 L 31.7 L RDW (12.2 - 16.3 %) 12.8 12.7 12.7 Plt Count (134 - 363 K/mm3) 228 185 223 MPV (9.2 - 12.7 fL) 11.8 11.7 11.9 Neut % (Auto) (57.9 - 77.3 %) 76.5 71.3 76.9 Lymph % (Auto) (14.5 - 29.7 %) 14.6 21.5 15.5 Piatt % (Auto) (3.6 - 10.2 %) 6.0 5.1 6.8 Eos % (Auto) (0.0 - 3.0 %) 2.0 1.1 0.3 Baso % (Auto) (0.1 - 0.9 %) 0.3 0.4 0.2 Neut # (Auto) (K/mm3) 11.5 7.1 9.0 Lymph # (Auto) (K/mm3) 2.2 2.1 1.8 Piatt # (Auto) (K/mm3) 0.9 0.5 0.8 Eos # (Auto) (K/mm3) 0.30 0.11 0.03 Baso # (Auto) (K/mm3) 0.0 0.0 0.0 Discharge Summary General Free Text A P: 31 yo woman s/p at 34 weeks 3 days after labor induction for preeclampsia with severe features Assessment: PPD # 2 -ID: Afebrile. No signs or symptoms of infection -Heme: pre-delivery hgb 9.4, post-delive ry hgb 7.9-->7.5->7.7. Planned to give patient oral iron supplement for management of c hronic iron deficiency anemia but she explained during rounds on PPD #1 that s he has had a laparoscopic gastric band for bariatric surgery so she may no t absorb oral iron well. Discontinued that order and ordered IV iron sucrose 300 mg x 1 on 08/23/22. Will repeat CBC on 08/24/22 to follow the trend and e xplained that I want her hemoglobin to remain greater than 7 to ensure th at she has adequate oxygen distribution to her healing tissues. She explain s that she has had a blood transfusion in the past due to heavy menses as a result of Polycystic Ovarian Syndrome -h/h stable. no symptoms. continue PNV or MV pos tpartum -CV/Pulm: hemodynamically stable -GI/: tolerating regular diet, voiding spontan eously, Colace for bowel regimen. -Mother/Baby: patient is pumping for her who remains in NICU -Pain control: well controlled with oral pain me ds -Rubella immune /Rh positive -PMH: PCOS, history of blood transfusion, histor y of heavy menses, obesity -PSH: laparoscopic gastric band surgery 2013 -pre-eclampsia with severe features: patient den ies having a history of CHTN. She received magnesium sulfate for se izure prophylaxis that was discontinued this morning af ter being temporarily paused for loss of vision and concern regarding magnesium toxicity (magnesium level was drawn and found to be 5.0 on 08/21/22 at 19:45). S he continues to take Labetalol 300 mg po BID for BP management and she is now normotensive. She ro es having neuro symptoms. She asked appropriate questions about future pregnancies and she was informed that she should take Aspirin 81 mg by mouth starting at 12 weeks in a future . PIH labs within normal limits in rega rds to platelet count, liver enzymes and creatinine on PPD #1. Repeat labs or dered for PPD #2-normal -Dispo: anticipate discharge home on PPD #2 if BPs are at goal <150/100 and if hgb is >7 Assessment: chronic iron deficiency anem ia, pre-eclampsia with severe features Date of admission: Date of admission: 08/19/22 Admission diagnosis: HTN-chronic w/pre-eclamp Hospital course: induction of labor, spontaneous vag delivery, nml postop/ postpart care Discharge condition: stable Discharge to: Home/Self Care Discharge diagnosis: chronic HTN w/pre-eclamp Discharge management: less than 30 mins Time spent: Time spent with patient (minut 15 >50% spent on counseling/coordination of care: yes Baby A: Vaginal delivery: spontaneous status: live born Gender: female 1 minute: 8 5 minutes: 9 Plan: routine care Vaginal packing at delivery: No Discharge Instructions Instructions: routine instr sheet given, instr a nd warnings rev'd, specific instr as noted Diet: Regular Activity: Resume Normal Activity, No [place] for 6 Wks, No Lifting >10lbs Additional discharge routines: None Prescriptions: e-prescribe at 1152 RPT #:[id number] END OF REPORT 2022-08-23 18:33:00-00:00 [facility] OB Postpart Progr Note REPORT#:[id number] REPORT STATUS: Signed DATE:08/23/22 TIME: 1833 PATIENT: KATHERINE MARRUFO UNIT #: [id number] ROOM/BED: : 90 AGE: 31 SEX: F ATTEND: Grace Lamb MD ADM AUTHOR: Deb Rod MD * ALL edits or amendments must be made on the [employer]/computer document * Subjective Subjective Admission EGA: Weeks: 34 Days: 3 EGA at delivery (wks/days): 34 WEEKS Status/Day: post (day 1) Patient reports: Patient reports: Yes normal lochia, Yes pain management effective, Yes tolerating po well, Yes voiding well, Yes voiding wi thout pain, Yes tolerating ambulation, Yes perineal pain, No no complaints, No nausea, No vomiting, No excessive bleeding, No abdominal pain Objective Nursing Documentation Review Nursing Data: The data set between the solid lines has been im ported from nursing documentation. Any exceptions have been noted be low under Provider comments. Feeding preference: Post hemorrhage risk score: High Risk for Hemorrhage. Provider comments on imported nursing data: [] General VS: Vital Signs: Date Time Temp Pulse Resp B/P B/P Pulse O2 O2 Flow FiO2 Mean Ox Delivery Rate 08/23 1630 37.2 79 18 138/84 99 08/23 1230 36.8 82 18 134/84 99 08/23 0900 36.7 70 18 121/77 98 08/23 0400 36.7 79 18 128/85 99 08/23 0230 84 18 143/86 99 08/23 0200 36.7 86 18 155/90 98 08/23 0100 83 18 155/82 99 08/23 0015 36.6 84 18 154/87 99 08/22 2300 84 18 154/87 99 08/22 2200 86 18 147/86 99 08/22 2100 88 18 149/88 98 08/22 2000 36.5 91 18 155/80 98 08/22 1900 91 18 154/87 99 PATIENT WEIGHT: Weight (lb): 220 Weight (oz): 7.4 Weight (kg): 100.000 Physical Exam Breasts: Feeding: pumping breasts Lungs: no distress Neuro: Exam: alert, oriented x3, normal speech Abdomen: soft, no abnormal tenderness, no guardi ng, no rebound tenderness Incision site: none Uterus: firm, involution appropriate, non-tender Fundus: firm, below the umbilicus, non-tender Lochia: normal Lacerations: Perineal laceration(s): 1st Degree High vaginal laceration: no Lower extremities: Edema: trace Result Findings/Data: Laboratory Tests: 11/25 0952 Chemistry Sodium (135 - 145 mEq/L) 137 Potassium (3.5 - 5.0 mEq/L) 3.9 Chloride (100 - 115 mEq/L) 106 Carbon Dioxide (22 - 31 mEq/L) 28 Anion Gap (10 - 20) 6.90 L BUN (7 - 18 mg/dL) 11 Creatinine (0.5 - 1.0 mg/dL) 0.7 Glomerular Filtr Rate (>60 ml/min) 119 Glucose (65 - 110 mg/dL) 104 Calcium (8.4 - 10.2 mg/dL) 7.6 L Total Bilirubin (0.2 - 1.0 mg/dL) 0.1 L AST (15 - 37 units/L) 17 ALT (12 - 78 units/L) 14 Total Alk Phosphatase (46 - 116 units/L) 90 Total Protein (6.3 - 8.2 gm/dL) 5.8 L Albumin (3.4 - 4.8 gm/dL) 2.1 L Hematology WBC (6.5 - 12.3 K/mm3) 9.9 RBC (3.51 - 4.69 M/mm3) 2.65 L Hgb (10.1 - 13.8 g/dL) 7.5 L Hct (32.5 - 41.8 %) 24.3 L MCV (84.6 - 96.6 fL) 91.7 MCH (27.3 - 33.9 pg) 28.3 MCHC (32.0 - 34.2 gm/dL) 30.9 L RDW (12.2 - 16.3 %) 12.7 Plt Count (134 - 363 K/mm3) 185 MPV (9.2 - 12.7 fL) 11.7 Neut % (Auto) (57.9 - 77.3 %) 71.3 Lymph % (Auto) (14.5 - 29.7 %) 21.5 Piatt % (Auto) (3.6 - 10.2 %) 5.1 Eos % (Auto) (0.0 - 3.0 %) 1.1 Baso % (Auto) (0.1 - 0.9 %) 0.4 Neut # (Auto) (K/mm3) 7.1 Lymph # (Auto) (K/mm3) 2.1 Piatt # (Auto) (K/mm3) 0.5 Eos # (Auto) (K/mm3) 0.11 Baso # (Auto) (K/mm3) 0.0 Diagnosis, Assessment Plan Diagnosis, Assessment Plan Free text A P: 31 yo woman s/p at 34 weeks 3 days after labor induction for preeclampsia with severe features Assessment: PPD # 1 -ID: Afebrile. No signs or symptoms of infection -Heme: pre-delivery hgb 9.4, post-delivery hgb 7 .9-->7.5. Planned to give patient oral iron supplement for management of c hronic iron deficiency anemia but she explained during rounds on PPD #1 that s he has had a laparoscopic gastric band for bariatric surgery so she may no t absorb oral iron well. Discontinued that order and ordered IV iron sucrose 300 mg x 1 on 08/23/22. Will repeat CBC on 08/24/22 to follow the trend and e xplained that I want her hemoglobin to remain greater than 7 to ensure th at she has adequate oxygen distribution to her healing tissues. She explain s that she has had a blood transfusion in the past due to heavy menses as a result of Polycystic Ovarian Syndrome -CV/Pulm: hemodynamically stable -GI/: tolerating regular diet, voiding spontan eously, Colace for bowel regimen. -Mother/Baby: patient is pumping for her infant who remains in NICU -Pain control: well controlled with oral pain me ds -Rubella immune /Rh positive -PMH: PCOS, history of blood transfusion, histor y of heavy menses, obesity -PSH: laparoscopic gastric band surgery 2013 -pre-eclampsia with severe features: patient den ies having a history of CHTN. She received magnesium sulfate for se izure prophylaxis that was discontinued this morning af ter being temporarily paused for loss of vision and concern regarding magnesium toxicity (magnesium level was drawn and found to be 5.0 on 08/21/22 at 19:45). S he continues to take Labetalol 300 mg po BID for BP management and she is now normotensive. She ro es having neuro symptoms. She asked appropriate questions about future pregnancies and she was informed that she should take Aspirin 81 mg by mouth starting at 12 weeks in a future . Her at bedside explained that he has an ex- who gave to her first two children but she did not have induced high blood pressures. She was asked to check her bloo d pressures at home at least twice daily to ensure that her antihypertensive therapy does not need to be adjusted further. PIH labs within normal limits in regards to platelet count, liver enzymes and creatinine on PPD #1. Repeat l abs ordered for PPD #2 -Dispo: anticipate discharge home on PPD #2 if BPs are at goal <150/100 and if hgb is >7 Assessment: chronic iron deficiency anem ia, pre-eclampsia with severe features Plan: routine care at 1845 RPT #:[id number] END OF REPORT 2022-08-22 02:16:00-00:00 [facility] ([facility]) OB Delivery Note REPORT#:[id number] REPORT STATUS: Signed DATE:08/22/22 TIME: 215 PATIENT: KATHERINE MARRUFO UNIT #: [id number] ROOM/BED: : 90 AGE: 31 SEX: F ATTEND: Grace Lamb MD ADM AUTHOR: Andi Nathan MD * ALL edits or amendments must be made on the [employer]/computer document * OB Delivery Nursing Documentation Review Nursing data: The data set between the solid lines has been im ported from nursing documentation. Any exceptions have been noted be low under Provider comments. _ ROM date: 08/21/22 ROM time: 1924 Membranes rupture method: AROM Amniotic fluid color: Clear Amniotic fluid amount: Steroids prior to arrival: Antibiotic prophylaxis given: Post hemorrhage risk score: High Risk for Hemorrhage. Delivery date infant A: Delivery time A: Birthweight (gm) A: Weight (lb) infant A: Weight (oz) infant A: Gender A: Female 1 minute A: 5 minutes A: 10 minutes infant A: Cord pH obtained A: Vacuum time A: Vacuum # pulls A: Vacuum # popoffs infant A: QBL at delivery: __ Provider comments on imported nursing data: [] Pre-delivery Meds prior to delivery: betamethasone, magnesium sulfate evaluation at delivery: team Admission EGA: Weeks: 34 Days: 3 EGA at delivery (wks/days): 34 WEEKS Blood Loss/Details Blood loss at delivery: <1K: no sx hypovol=no he m Management: uterotonic agent(s), fundal massage EBL at delivery (ml's): 400 Baby A Information Baby A information Delivery date: 08/22/22 Delivery time: 0147 status: live born Wt of baby (grams): 2030 Wt of baby (lbs/oz): 4#8 Gender: female 1 minute: 8 5 minutes: 9 Presentation: vertex ABG details Baby A Cord blood gases: not collected Nuchal cord Baby A Nuchal cord: no Additional comments: As the head crowned and delivered, the p erineum was protected with blue towel. The anterior shoulder delivered with gentle down gates traction and posterior shoulder with gentle upward traction. A nuchal c ord was not noted. The was bulb suctioned, the cord clamped and cut, then handed to the waiting mother. Placenta delivered spontaneously and intact. He mostasis achieved with fundal massage and IV pitocin. A first degree midline p erineal laceration was noted and repaired with 2-0 chromic, right per iurethral laceration repaired with 3-0 chromic. Sponge, lap, and needle counts correct x 2, lap scan negative. Good maternal- bonding noted. Cytotec 1000mcg given rectal ly due to mild uterine atony without hemorrhage, and risk of atony due to magnesium use. Vaginal Delivery Vaginal Delivery Vaginal delivery: Labor: induced Medications/Devices used: oxytocin, cervidil Vaginal delivery: spontaneous Amniotic fluid: clear Anesthesia type: epidural anesthesia Episiotomy: none Laceration repair: 2-0 suture, 3-0 suture (CABLE TELEVISION LINE TECHNICIAN JUAN MANUEL) Vaginal hematoma: NONE Placenta: spontaneous, intact, sent to patholog y Post delivery meds used: oxytocin, cytotec (100 0MCG RECTALLY) Count: correct, vag exam neg for sponges Vaginal packing: No Mother's condition: mother stable 's condition: infant to NICU Lacerations: Perineal laceration(s): 1st Degree High vaginal laceration: no Extraction details OVD performed: no Shoulder dystocia present: no Electronically Signed by Andi Nathan MD on 08/22 at 1203 RPT #:[id number] END OF REPORT 2022-08-21 09:44:00-00:00 [facility] ([facility]) Clinical Note REPORT#:[id number] REPORT STATUS: Signed DATE:08/21/22 TIME: 943 PATIENT: KATHERINE MARRUFO UNIT #: [id number] ROOM/BED: [address] : 90 AGE: 31 SEX: F ATTEND: Grace Lamb MD ADM AUTHOR: Ashlee Lamb MD * ALL edits or amendments must be made on the [employer]/computer document * Clinical Note Note: Patient now in L D for IOL Cervidil was placed around 4am - will leave in p lace for 12 hours - patient states she is cramping with contractions Vitals stable - start po labetalol for BP managm ent while in labor On Magnesium with good UOP FHTs reasuring at 0945 RPT #:[id number] END OF REPORT 2022-08-20 15:54:00-00:00 [facility] ([facility]) OB Antepartum Prog Note REPORT#:[id number] REPORT STATUS: Signed DATE:08/20/22 TIME: 1554 PATIENT: KATHERINE MARRUFO UNIT #: [id number] [address] : [address] AGE: 31 SEX: F ATTEND: Grace Lamb MD ADM AUTHOR: Sarai Taylor MD * ALL edits or amendments must be made on the [employer] document * Subjective Subjective Admission EGA: Weeks: 34 Days: 3 Patient reports: Patient reports: Yes abdominal pain, Yes normal movement, Yes headache, No vaginal bleeding, No leaking fluid Objective VS: Vital Signs: Date Time Temp Pulse Resp B/P B/P Pulse O2 O2 F low FiO2 Mean Ox Delivery Rate 08/20 1140 113.0 08/20 1140 84 154/87 08/20 1139 98.5 82 18 99 08/20 0847 105.0 08/20 0847 78 150/73 08/20 0816 110.0 08/20 0816 98.2 73 18 165/77 100 08/20 0618 103.0 08/20 0618 104 135/81 08/20 0026 114.0 08/20 0026 84 154/87 08/19 2100 110.0 08/19 2100 97 152/81 Last Documented: Result Date Time B/P Mean 113.0 08/20 1140 B/P 154/87 08/20 1140 Pulse 84 08/20 1140 Pulse Ox 99 08/20 1139 Temp 98.5 08/20 1139 Resp 18 08/20 1139 Vital Signs Date Temp Pulse Resp B/P B/P Mean Pulse Ox FiO2 08/19-08/20 98.2-98.5 73-104 18 135-165/73-87 10 3.0-114.0 99-100 PATIENT WEIGHT: Weight (lb): Weight (oz): Weight (kg): 99.045639 Membranes: Intact Cervical/ exam: Dilatation (cm): 0 - closed Uterine activity: Monitor: toco Frequency (description): none HEENT: normocephalic w/o injury Cardiac: regular rate and rhythm Lungs: unlabored breathing Neuro: Exam: alert, oriented x3, normal speech, normal gait Baby A: Baby A baseline: 120 bpm Baby A variability: moderate 6-25 bpm Baby A accelerations: 15 X 15 Baby A decelerations: none Baby A FHR category: category 1 (monitored 30mi nutes, reactive) Findings/data: Laboratory Tests: 08/20 08/20 0615 0255 Chemistry Sodium (135 - 145 mEq/L) 135 Potassium (3.5 - 5.0 mEq/L) 4.0 Chloride (100 - 115 mEq/L) 104 Carbon Dioxide (22 - 31 mEq/L) 22 Anion Gap (10 - 20) 12.80 BUN (7 - 18 mg/dL) 9 Creatinine (0.5 - 1.0 mg/dL) 0.7 0.7 Glomerular Filtr Rate (>60 ml/min) 119 Glucose (65 - 110 mg/dL) 114 H Calcium (8.4 - 10.2 mg/dL) 8.1 L Total Bilirubin (0.2 - 1.0 mg/dL) 0.1 L AST (15 - 37 units/L) 16 ALT (12 - 78 units/L) 13 Total Alk Phosphatase (46 - 116 units/L) 110 Total Protein (6.3 - 8.2 gm/dL) 6.2 L Albumin (3.4 - 4.8 gm/dL) 2.5 L Hematology WBC (6.5 - 12.3 K/mm3) 11.1 RBC (3.51 - 4.69 M/mm3) 3.06 L Hgb (10.1 - 13.8 g/dL) 8.7 L Hct (32.5 - 41.8 %) 27.2 L MCV (84.6 - 96.6 fL) 88.9 MCH (27.3 - 33.9 pg) 28.4 MCHC (32.0 - 34.2 gm/dL) 32.0 RDW (12.2 - 16.3 %) 12.4 Plt Count (134 - 363 K/mm3) 224 MPV (9.2 - 12.7 fL) 12.2 Neut % (Auto) (57.9 - 77.3 %) 87.7 H Lymph % (Auto) (14.5 - 29.7 %) 9.7 L Piatt % (Auto) (3.6 - 10.2 %) 1.6 L Eos % (Auto) (0.0 - 3.0 %) 0.0 Baso % (Auto) (0.1 - 0.9 %) 0.1 Neut # (Auto) (K/mm3) 9.8 Lymph # (Auto) (K/mm3) 1.1 Piatt # (Auto) (K/mm3) 0.2 Eos # (Auto) (K/mm3) 0 Baso # (Auto) (K/mm3) 0.0 Urines Ur Random Creatinine (mg/dL) 123.5 U Random Total Protein (mg/dL) 39.6 Urine Total Volume (ML) 1300 Creatinine Clearance (70 - 120 ml/min) 158 H Ur Total Protein 24 Hr (20 - 150 mg/24HR) 515 * H Diagnosis, Assessment Plan Diagnosis, Assessment Plan Free Text A P: 31 yo at 34 weeks 3 days with elevated b lood pressures here for r/o preeclampsia 1. Suspected preeclampsia based on worsening blo od pressures, mildly elevated protein/creatinine ratio. Patient had 1 severe r coreen bp and had intermittant ones as high at 150s systoli c. She was started on labetalol 200mg bid overnight. If patient has any more fausto re range blood pressures she will meet criteria for severe features and consider delivery. Creatinin e and Liver enzymes and platelets normal. repeat labs tomorrow. WIll con higinio Burgos who she has been seen during her visits. -08/20/22 repeat labs stable however now with in termittent severe range and symptoms including worsening headache, vomiting and ongoing nausea. -seen by MFM today and recom mended delivery based on worsening BP and persistent symptoms. will plan for magnesium when moved to L D -unfavorable cervix. will plan cervical ripening with cervidil 2. PTIUP - s/p first dose of betamethasone, repe at today. s/p Bakari consult. Nonstress test monitored for 30minutes reactive and reassuring. 3. A+/rubella immune 4. GBS collected 08/19/22-pending 5. Chronic anemia hb 9, starting iron twice a da y and colace. 6. VTE ppx - scds. at 1551 RPT #:[id number] END OF REPORT 2022-08-20 09:32:00-00:00 [facility] ([facility]) MF Consultation Note REPORT#:[id number] REPORT STATUS: Signed DATE:08/20/22 TIME: 931 PATIENT: KATHERINE MARRUFO UNIT #: [id number] ROOM/BED: 5044-A : 90 AGE: 31 SEX: F ATTEND: Demetris Lamb MD ADM AUTHOR: Pk Arcos * ALL edits or amendments must be made on the [employer]/computer document * Pk Evans 08/20/22 0932: History of Present Illness HPI Requesting clinician: Dr. Lamb Reason for consult: Elevated blood pressure Chief complaint: Elevated blood pressure and headache HPI: Ms. Marrufo is a 21 yo G3P 0020 at 34 4/7 weeks gestation. Patient presented to the [facility] on Friday evening w ith elevated blood pressures (170s/100s), a headache , and spots in her vision. She states when she s tarts noticing an increase in her blood pressure, which is followed by a severe headache behind her eyes and then starts projectile vomit ing. She currently denies headaches, blurry vision, scotoma, shortness of breath, and chest pain. History Nursing Documentation Review Nursing data: The data set between the solid lines has been im ported from nursing documentation. Any exceptions have been noted be low under Provider comments. Prior history : 3 Para: 0 Term: : Abortions spontaneous: Abortions induced: Living children: Ectopic: Stillbirths: Live births: deaths: Number of previous C/S: Current data EDC: 09/27/22 EGA (weeks/days): 34.3 EGA at admit (weeks): EGA at delivery (weeks): 34 Steroids prior to arrival: Antibiotic prophylaxis given: ROM date: ROM time: Labor onset date: Labor onset time: Reported maternal labs/data Blood type: Rh type: Rubella: Hepatitis B: HIV exposure test: VDRL: Sexually transmitted diseases: Gonorrhea: Syphilis: Herpes simplex type 1 2: Chlamydia: Condyloma: Human papillomavirus: Group B beta strep: Rho(D) immune globulin this preg: Monitor mode - UA: [place] units: Feeding preference: Delivery data Delivery date infant A: Delivery time A: Birthweight (gm) A: Weight (lb) infant A: Weight (oz) A: Gender infant A: 1 minute infant A: 5 minutes A: 10 minutes infant A: Cord pH obtained infant A: Vacuum time A: Vacuum # pulls infant A: Vacuum # popoffs infant A: Provider comments on imported nursing data: [] Past History Past medical history: anemia, PCOS Past surgical history: Lap band Past social history: does not smoke, no alcohol use, no drug abuse Medications: Home Medications: Medication Dose/Rte/Freq Days Qty Entered Last Max Daily Dose Reviewed No Known Home Medications Current Hospital Medications: Antihistamine Drugs Sig/Keri Start time Last Medication Dose Route Stop Time Status Admin Diphenhydramine HCl 25 MG ONCE PRN 08/195 A C 08/19 (diphenhydrAMINE HCL IV 10/18 001 0121 50 MG/ML 1 ML VIAL) Blood Formation,Coagulation Sig/Keri Start time Last Medication Dose Route Stop Time Status Admin Ferrous Sulfate 325 MG BID 08/19 2000 AC 08/20 (FERROUS SULFATE 325 PO 10/18 195 0818 MG TAB) Cardiovascular Drugs Sig/Keri Start time Last Medication Dose Route Stop Time Status Admin Labetalol HCl 200 MG Q12H 08/19 0300 AC 08/20 (LABETALOL HCL 200 PO 10/18 0259 0116 MG) Hydralazine HCl 10 MG ASDIR PRN 08/18 2345 AC (hydrALAZINE HCL IV 20MG) Labetalol HCl 20 MG ONCE PRN 08/18 2345 AC (NORMODYNE 100 MG/20 IV ML VIAL) Labetalol HCl 40 MG ASDIR PRN 08/18 2345 AC (NORMODYNE 100 MG/20 IV ML VIAL) Labetalol HCl 80 MG ASDIR PRN 08/18 2345 AC (NORMODYNE 100 MG/20 IV ML VIAL) Central Nervous System Agents Sig/Keri Start time Last Medication Dose Route Stop Time Status Admin Acetaminophen 650 MG Q4H PRN PRN 08/190 AC 08/20 (ACETAMINOPHEN 325 PO 10/18 158 0019 MG TAB) Promethazine HCl 25 MG Q6H PRN PRN 08/19 200 A C (PHENERGAN 25 MG RECTAL 10/18 158 SUPP) Gastrointestinal Drugs Sig/Keri Start time Last Medication Dose Route Stop Time Status Admin Docusate Sodium 100 MG BID 08/19 0800 AC 08/20 (DOCUSATE SODIUM 100 PO 10/18 0759 0817 MG CAP) Al Hydrox/Mg Hydrox/ 30 ML Q4H PRN PRN 08/19 02 00 AC Simethicone PO 10/18 158 (MYLANTA 30 ML SUSP) Magnesium Hydroxide 30 ML Q6H PRN PRN 08/19 020 0 AC (MILK OF MAGNESIA 30 PO 10/18 0159 ML UD) Ondansetron Base 4 MG Q4H PRN PRN 08/190 AC (ZOFRAN ODT 4MG) PO 10/18 158 Ondansetron HCl 4 MG Q4H PRN PRN 08/190 AC 08/20 (ZOFRAN 2 MG/ML 4 MG IV 10/18 158 0019 SYR) Polyethylene Glycol 17 GM DAILY PRN PRN 08/19 0 200 AC (POLYETHYLENE GLYCOL PO 10/18 158 PKT) Hormones And Synthetic Substit Sig/Keri Start time Last Medication Dose Route Stop Time Status Admin Betamethasone Acet/ 12 MG Q24H 08/195 DC Betameth SodPhos IM 08/20 46 0116 (CELESTONE SOLUSPAN 12MG/2 ML SYR) Vitamins Sig/Keri Start time Last Medication Dose Route Stop Time Status Admin Multivit/ 1 TAB DAILY 08/19 0900 AC Folic Acid/Iron PO 10/18 0859 0817 ( Vitamin Tablet) Allergies: Coded Allergies: cefaclor (From CECLOR) (RASH 08/18/22) codeine (NAUSEA, VOMITING 08/18/22) erythromycin base (UNKNOWN 08/18/22) iodine (ANAPHYLACTIC 08/18/22) Review of Systems Constitutional: Denies: chills, fatigue, fever, generalized weak ness, lethargy. Respiratory: Denies: CASH (dyspnea on exertion), SOB. Cardiovascular: Denies: chest pain, palpitations. GI: Denies: abdominal pain, constipation, diarrhea, nausea, vomiting. : Reports: . Denies: vaginal bleeding, vag inal discharge. Neuro: Denies: dizziness, headache, lightheaded, vision change. Objective Physical Exam VS/I O: Last Documented: Result Date Time B/P Mean 105.0 08/20 847 B/P 150/73 08/20 847 Pulse 78 08/20 847 Pulse Ox 100 08/20 816 Temp 98.2 08/20 816 Resp 18 08/20 816 PATIENT WEIGHT: Weight (lb): Weight (oz): Weight (kg): 99.451294 General appearance: alert, awake, oriented, no a cute distress Respiratory: no distress Abdomen: non-tender, soft Extremities: edema, full range of motion Neuro/TARP REPAIRER: alert, oriented x 3 heart rate: 120s heart rate pattern: category I Contraction pattern: tocometer (none ) Results Findings/Data: Laboratory Tests 08/20 08/20 0615 0255 Chemistry Sodium (135 - 145 mEq/L) 135 Potassium (3.5 - 5.0 mEq/L) 4.0 Chloride (100 - 115 mEq/L) 104 Carbon Dioxide (22 - 31 mEq/L) 22 Anion Gap (10 - 20) 12.80 BUN (7 - 18 mg/dL) 9 Creatinine (0.5 - 1.0 mg/dL) 0.7 0.7 Glomerular Filtr Rate (>60 ml/min) 119 Glucose (65 - 110 mg/dL) 114 H Calcium (8.4 - 10.2 mg/dL) 8.1 L Total Bilirubin (0.2 - 1.0 mg/dL) 0.1 L AST (15 - 37 units/L) 16 ALT (12 - 78 units/L) 13 Total Alk Phosphatase (46 - 116 units/L) 110 Total Protein (6.3 - 8.2 gm/dL) 6.2 L Albumin (3.4 - 4.8 gm/dL) 2.5 L Laboratory Tests 08/20 0615 Hematology WBC (6.5 - 12.3 K/mm3) 11.1 RBC (3.51 - 4.69 M/mm3) 3.06 L Hgb (10.1 - 13.8 g/dL) 8.7 L Hct (32.5 - 41.8 %) 27.2 L MCV (84.6 - 96.6 fL) 88.9 MCH (27.3 - 33.9 pg) 28.4 MCHC (32.0 - 34.2 gm/dL) 32.0 RDW (12.2 - 16.3 %) 12.4 Plt Count (134 - 363 K/mm3) 224 MPV (9.2 - 12.7 fL) 12.2 Neut % (Auto) (57.9 - 77.3 %) 87.7 H Lymph % (Auto) (14.5 - 29.7 %) 9.7 L Piatt % (Auto) (3.6 - 10.2 %) 1.6 L Eos % (Auto) (0.0 - 3.0 %) 0.0 Baso % (Auto) (0.1 - 0.9 %) 0.1 Neut # (Auto) (K/mm3) 9.8 Lymph # (Auto) (K/mm3) 1.1 Piatt # (Auto) (K/mm3) 0.2 Eos # (Auto) (K/mm3) 0 Baso # (Auto) (K/mm3) 0.0 Laboratory Tests 08/20 0255 Urines Ur Random Creatinine (mg/dL) 123.5 U Random Total Protein (mg/dL) 39.6 Urine Total Volume (ML) 1300 Creatinine Clearance (70 - 120 ml/min) 158 H Ur Total Protein 24 Hr (20 - 150 mg/24HR) 515 * H Diagnosis, Assessment Plan Diagnosis, Assessment Plan Problem List/A P: 1. PCOS (polycystic ovarian syndrome) 2. 34 weeks gestation of 3. Hx of laparoscopic gastric banding 4. Preeclampsia Free Text A P: Ms. Marrufo is a 31 yo at 34 4/7 weeks gest ation with preeclampsia with severe features. 1.Preeclampsia with severe features d/t severe r anging blood pressures, persistent headaches -Diagnosis based on new onset elevated blood pre ssures in the setting of proteinuria - CMP within normal limits. UPCR 276, 24 hour ur ine 515mg -Recommend discontinuing Labetalol 200 mg q12 ho urs at this time - do not recommend starting antihyper tensives after 32 weeks in patient with diagnosis of preeclampsia with severe fea tures given that at this gestational age, the risks of expectant management outweigh the benefits. 2. Prematurity -S/P Bethamethasone (#1-08/19 and #2-08/20) -S/P Neonatology consultation -FHTs (reviewed for 30 minutes): baselin e 120, reactive, moderate variability, accelerations present, no decelerations. No cont ractions on tocometer. -Continuous monitoring until delivery 3. Fetus -Growth US (08/20): EFW 2149 grams (4 lbs. 12 oz .) (14%), AC 19%, Cephalic presentation, posterior placenta, YUE 7.37 cm, F HT 128. Normal appearing diaphragm, stomach, bladder, and kidneys. Images are stored in our office on a DVD. Recommend a medically indicated delivery at this time d/t preeclampsia with severe features. Thank you for the referral and opportunity to pa cheriseate in the care of your patient. Plan discussed with Ms. Marrufo, her partner, Dr. Megan chin, Dr. Andersen and myself. A total of 45 minutes were spent [id number] wi th the patient during this encounter and over half of t hat time was spent on counseling and coordination of care. J Luis Andersen 08/20/22 1656: Attestations Attestation needed: supervising physician Physician Attestation Agree w/findings plan: Ms. Marrufo was seen and evalua valery by me on 08/20 and I agree with the findings and plan as documented by Ms. Pk Arcos ACTIVATED SLUDGE OPERATOR-C and c o-authored by me J Luis Andersen MD at 1506 Electronically Signed by J Luis Andersen MD on 07/31 11/20 at 4068 RPT #:[id number] END OF REPORT 2022-08-19 17:24:00-00:00 [facility] ([facility]) / Counseling REPORT#:[id number] REPORT STATUS: Signed DATE:08/19/22 TIME: 1723 PATIENT: KATHERINE MARRUFO UNIT #: [id number] ROOM/BED: [address] : 90 AGE: 31 SEX: F ATTEND: Grace Lamb MD ADM AUTHOR: Sofai Hedrick MD * ALL edits or amendments must be made on the [employer]/computer document * / Counseling Consultation Comments: [facility] Consult Note Created Date/Time 08/19/2022 15:45:54 Note Date Note Time MRN PAC 08/19/2022 16:00:00 [id number] Hospital Name [facility] First Name Last Name Place of Service Requested By Katherine Marrufo Labor and Delivery Patria Lamb Reason for Consultation 34 week admitted for PIH at 34 weeks, concern for needing to deliver prematurely. Maternal History Mother's Age Blood Type Mother's Race Gravid a Abor 1990 31 A Pos White 3 2 RPR Serology HIV Rubella GBS HBsAg Care EDC OB Non-Reactive Negative Immune Pending Negative Ye s 09/27/2022 Complications Anemia, 3rd trimester (O99.013) PIH (-induced hypertension), 3rd trimes ter (O13.3) 34 weeks gestation of (Z3A.34) Maternal Steroids: Yes Last Dose Date 08/19/2022 Maternal Medications: Yes vitamins Ferrous Sulfate Labetalol Zofran Comment 34 week complicated by PIH concerning for pre-eclampsia Present Plan Inpatient BP monitoring. Potential delivery in . Recommendations I have reviewed the mother`s medical chart and s poken with the gill box tender requesting this consult. I met with the mother and the baby's father. The baby 's name will be Cambrie. I reviewed the most common problems encountered for babies born at 34 weeks gestation, stressing that all babies are differe nt, and the chances of complications tend to lessen at advancing gestational ages. While most any organ system can have a complication, the absolute ris k of severe complications is very low and the opportunity for a good outcome is high. Among infants admitted to the NICU, survival is approximately 99% and s urvival without severe complications is very high. I discussed the delivery cindy m management, and explained the personnel that will be present at delivery. I reviewed the plan for delayed cord clamping (if appropriate) and thermoregulation support. Some infants at this age need respiratory support due to lung immaturity, comm only CPAP or a nasal cannula, though some need mechanical ventilation. We also discussed the use of artificial surfactant, which may or may not be needed. Whil e uncommon, some infants need other measures in their resuscitation (e.g. CPR, fluid, blood). I reviewed the typical cares given during admiss ion to the NICU. Some infants at this gestation need IV ac cess and that may be an umbilical catheter(s), PICC line or peripheral IV to allow nutrition. When s ufficiently stable, gavage feedings will be started. We discussed t he critical importance of to optimize outcome (improved n eurodevelopment, reduced risk of NEC and infections among other things). We discussed how we will [place] mother's . We discussed common discharge goals, inc luding mature thermoregulation, mature respiratory status and abili ty to thrive on oral feedings. Many infants achieve this around 36-39 weeks corrected gestation, alt rosalino some infants are ready sooner and some take longer. Time was allotted for the family to ask question s, and all questions were answered to the best of my ability, give n the information provided. The family understands and agrees with the present plan. Thank you for inviting me to speak with the family. We remain available if the family desires further discussion or clarificati on. The total length of floor unit time was 45 minut e(s). Counseling and/or coordination of care dominated more than fifty p ercent of the time. Authenticated by: SOFIA HEDRICK MD Date/Time: 08/19/2022 17:23 Electronically Signed by Sofia Hedrick MD on at 1724 RPT #:[id number] END OF REPORT 2022-08-19 14:49:00-00:00 [facility] ([facility]) OB Admission / H P REPORT#:[id number] REPORT STATUS: Signed DATE:08/19/22 TIME: 1449 PATIENT: KATHERINE MARRUFO UNIT #: [id number] ROOM/BED: [address] : 90 AGE: 31 SEX: F ATTEND: Grace Lamb MD ADM AUTHOR: Andi Nathan MD * ALL edits or amendments must be made on the [employer]/computer document * OB History Chief complaint: elevated blood pressure HPI: Pt is 31 yo at 34 weeks 3 days c omplains of worsening headache and not feeling normal on 08/18 afternoon. 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 She checked her bp and it was 170s systolic. She has been watching her blood pressures with dr teagan babb for the last 2 w eeks as they are borderline. She has PAUL behind her eyes. history: : 3 Term: 0 : 0 Abortus: 2 Living children: 0 Current : Best EDC: 09/27/22 Admission EGA (weeks) 34 Admission EGA (days) 3 EDC based on: LMP, ultrasound, 1st trimester Past History Past Medical History: Denies: Alcoholism/subst abu se, Anemia, Arthritis, Asthma, Atrial fibrillation, Cancer, Congestive heart failure, COPD, Coronary artery disease, Dementia, Depression/mood disorder, Diabetes mellitus, BRENDA D/gastritis, Hypertension, Kidney disease/stones, Seizu re disorder, Transient ischemic attack, , Abdominal aortic aneurysm, ADD/AD HD, AIDS, Angina pectoris, Anticoagulant therapy, Atrial flutter, B leeding disorder, BPH, C diff colitis, Cardiac dysrhythmias, Chronic pain, Cirrhosis, C ongenital anomalies, Dyslipidemia, Gallbladder dis/stones, GI bleed, Glaucoma, Headache disorder, Hepatitis, HIV, Intracranial hemorrhage, Ischemi c stroke, Motor dysfunction, Pancreatitis, Peptic ulcer disease, Periph arter ial disease, Pressure ulcer, Prior [place], Schizophrenia, Sickle cell disease, St eroid use, Thyroid disorder, Transfusion history, Tuberculosis, Urinary tract infection, Venous thromboembolism. Additional Medical History: PCOS Past Surgical History: Reports: Abdominal surgery (Lap band enrique messi). Denies: Appendectomy, Bariatric procedure, CABG, Carotid endarterectomy, Cholecy stectomy, , Dialysis shunt/AV fistula, Heart valv e procedure, Hernia repair, Hysterectomy, Pacemaker, Spine surgery, Splenectomy, Tonsillectomy, Trans plant recipient, Vascular procedure, , Amputation , Anesthesia complications, Bilateral tubal ligation, Bladder surgery, Breas t biopsy/procedure, Carpal tunnel release, Cranial proc edure, D C, Eye surgery, Feeding tube, Hip procedure , ICD, Indwelling IV catheter, Knee procedure, L ithotripsy, Lung surgery, Nephrectomy, PCI, Prostate surgery, Thyroidectom y, Tracheotomy, HANDS AND DIAL INSPECTOR shunt. Family History Denies: Abdominal aortic aneurysm, Anemia, Asthm a, CAD < 40 yrs old, Cancer, Coagulopathy, Dementia/Alzheimer's dis, Depressi on/mood disorder, Diabetes, Heart disease, Hypertension, Kidney disease/stones, Seizure disorder, Stroke/TIA , Subarachnoid hemorrhage, S udden cardiac , Thyroid disorder, , Connective tissue dis, Gallbladder disease, Hyperlipidemia, Neurofibromatosis, Sickle cell disease. Alcohol Use Denies EtOH use Drug Use Denies recreational drugs Smoking status for patients 13 years old or olde r: Never Smoker Medications: Home Medications: No Known Home Medications Allergies: Coded Allergies: cefaclor (From CECLOR) (RASH 08/18/22) codeine (NAUSEA, VOMITING 08/18/22) erythromycin base (UNKNOWN 08/18/22) iodine (ANAPHYLACTIC 08/18/22) Objective General VS: Vital Signs: Date Time Temp Pulse Resp B/P B/P Pulse O2 O2 Flow FiO2 Mean Ox Delivery Rate 08/19 1243 112.0 08/19 1243 101 155/83 08/19 0803 97.0 08/19 0803 80 129/73 08/19 0258 109.0 08/19 0258 70 151/82 08/19 0242 91.0 08/19 0242 80 123/71 08/19 0232 96.0 08/19 0232 75 129/76 08/19 0222 104.0 08/19 0222 76 136/83 08/19 0212 100.0 08/19 0212 77 134/77 08/19 0202 100.0 08/19 0202 78 133/77 08/19 0152 100.0 08/19 0152 81 134/77 08/19 0143 117.0 08/19 0143 74 153/90 08/19 0122 114.0 08/19 0122 72 152/87 08/19 0112 107.0 08/19 0112 75 137/88 08/19 0102 109.0 08/19 0102 75 142/84 08/19 0053 105.0 08/19 0053 77 139/82 08/19 0043 113.0 08/19 0043 79 152/85 08/19 0032 121.0 08/19 0032 80 155/97 08/19 0023 119.0 08/19 0023 80 158/99 08/19 0013 104.0 08/19 0013 77 146/81 08/18 2345 119.0 08/18 2345 79 150/97 08/18 2335 117.0 08/18 2335 86 151/92 08/18 2326 120.0 08/18 2326 104 173/93 08/18 2315 134.0 08/18 2315 97.6 88 16 171/107 Last Documented: Result Date Time B/P Mean 112.0 08/19 1243 B/P 155/83 08/19 1243 Pulse 101 08/19 1243 Temp 97.6 08/18 2315 Resp 16 08/18 2315 Vital Signs Date Temp Pulse Resp B/P B/P Mean Pulse Ox FiO2 08/18-08/19 97.6 70-104 16 123-173/71-107 91.0- 134.0 PATIENT WEIGHT: Weight (lb): Weight (oz): Weight (kg): 99.757065 Physical Exam HEENT: normocephalic w/o injury Cardiac: regular rate and rhythm Lungs: unlabored breathing Neuro: Exam: alert, oriented x3, normal speech, normal gait Musculoskeletal: normal insp ection, painless range of motion, no CVA tenderness Genitourinary: no bladder distention, no flank p ain, no urinary catheter Uterine activity: Monitor: toco Frequency (description): none Cervical/ exam: Dilatation (cm): 0 - closed Membranes: Membranes: Intact Baby A: Baby A baseline: 120 bpm Baby A variability: moderate 6-25 bpm Baby A accelerations: 15 X 15 Baby A decelerations: none Baby A FHR category: category 1 (monitored 30mi nutes, reactive) Results Findings/Data: Laboratory Tests: 08/19 08/19 08/19 0925 0004 0000 Chemistry Sodium (135 - 145 mEq/L) 138 Potassium (3.5 - 5.0 mEq/L) 3.8 Chloride (100 - 115 mEq/L) 104 Carbon Dioxide (22 - 31 mEq/L) 28 Anion Gap (10 - 20) 9.70 L BUN (7 - 18 mg/dL) 11 Creatinine (0.5 - 1.0 mg/dL) 0.7 Glomerular Filtr Rate (>60 ml/min) 119 Glucose (65 - 110 mg/dL) 100 Calcium (8.4 - 10.2 mg/dL) 8.5 Total Bilirubin (0.2 - 1.0 mg/dL) 0.1 L AST (15 - 37 units/L) 15 ALT (12 - 78 units/L) 10 L Total Alk Phosphatase (46 - 116 units/L) 114 Total Protein (6.3 - 8.2 gm/dL) 6.2 L Albumin (3.4 - 4.8 gm/dL) 2.4 L Hematology WBC (6.5 - 12.3 K/mm3) 10.4 RBC (3.51 - 4.69 M/mm3) 3.23 L Hgb (10.1 - 13.8 g/dL) 9.2 L Hct (32.5 - 41.8 %) 28.5 L MCV (84.6 - 96.6 fL) 88.2 MCH (27.3 - 33.9 pg) 28.5 MCHC (32.0 - 34.2 gm/dL) 32.3 RDW (12.2 - 16.3 %) 12.1 L Plt Count (134 - 363 K/mm3) 242 MPV (9.2 - 12.7 fL) 11.9 Neut % (Auto) (57.9 - 77.3 %) 70.2 Lymph % (Auto) (14.5 - 29.7 %) 22.2 Piatt % (Auto) (3.6 - 10.2 %) 6.2 Eos % (Auto) (0.0 - 3.0 %) 0.7 Baso % (Auto) (0.1 - 0.9 %) 0.4 Neut # (Auto) (K/mm3) 7.3 Lymph # (Auto) (K/mm3) 2.3 Piatt # (Auto) (K/mm3) 0.6 Eos # (Auto) (K/mm3) 0.07 Baso # (Auto) (K/mm3) 0.0 Other Body Source Membranes Rupture NON-RUPTURED Serology Treponema pallidum Ab (NONREACTIVE) NONREACTIVE Hep Bs Antigen (NONREACTIVE) NONREACTIVE Hepatitis C Antibody (NONREACTIVE) NONREACTIVE Hep C Ab Signal/Cutoff (<0.80) 0.13 Urines Ur Random Creatinine (mg/dL) 189.2 U Random Total Protein (mg/dL) 52.3 Protein/Creatinin Ratio (<200 mg/gcrea) 276.4 H Microbiology: Date/Time Procedure - Status Source Growth 08/19 925 Streptococcus Culture - RES VAGINAL Results: labs reviewed, vital signs reviewed Diagnosis, Assessment Plan Diagnosis, Assessment Plan Free Text A P: 31 yo at 34 weeks 3 days with elevated b lood pressures here for r/o preeclampsia 1. Suspected preeclampsia based on worsening blo od pressures, mildly elevated protein/creatinine ratio. Patient had 1 severe r coreen bp and had intermittant ones as high at 150s systoli c. She was started on labetalol 200mg bid overnight. If patient has any more fausto re range blood pressures she will meet criteria for severe features and consider delivery. Creatinin e and Liver enzymes and platelets normal. repeat labs tomorrow. WIll con vamsit dr. Burgos who she has been seen during her visits. 2. PTIUP - s/p first dose of betamethaso ne, will get second dose tomorrow. Bakari consult pending. NOnstress test monitored for 30minutes reactive and reassuring. 3. A+/rubella immune 4. GBS collected 08/19/22 5. Chronic anemia hb 9, starting iron twice a da y and colace. 6. VTE ppx - scds. Assessment/Impression: hypertension-gestational, preeclampsia Plan discussed with: patient, spouse/partner Electronically Signed by Andi Nathan MD on 08/19 at 1543 RPT #:[id number] END OF REPORT 2022-08-19 00:38:00-00:00 [facility] ([facility]) EMERGENCY PROVIDER REPORT REPORT#:[id number] REPORT STATUS: Signed DATE:08/19/22 TIME: 37 PATIENT: KATHERINE MARRUFO UNIT #: [id number] ROOM/BED: AGE: 31 SEX: F PCP PHYS: Ashlee Lamb MD SERVICE AUTHOR: Stacey Meehan MD * ALL edits or amendments must be made on the [employer]/computer document * See Addendum TAMARA History Chief complaint: elev BP, not feeling well HPI: 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 She went to her local ER to check her BP and it was 170/ x. She had her first elev BP last week in clinic (last Fri), but sh shirley had a recent deathin the family so she thought it was just that. But today she has a PAUL and feels more swollen. No visual changes except occasional blurry--fl eeting. 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, no DU FHx DM Medications: Home Medications: Medication Dose/Rte/Freq Days Qty Entered Last Max Daily Dose Reviewed No Known Home Medications Current Hospital Medications: Antihistamine Drugs Sig/Keri Start time Last Medication Dose Route Stop Time Status Admin Diphenhydramine HCl 25 MG ONCE PRN 08/19 15 A C (diphenhydrAMINE HCL IV 10/18 13 50 MG/ML 1 ML VIAL) Cardiovascular Drugs Sig/Keri Start time Last Medication Dose Route Stop Time Status Admin Hydralazine HCl 10 MG ASDIR PRN 08/18 2345 AC (hydrALAZINE HCL IV 20MG) Labetalol HCl 20 MG ONCE PRN 08/18 2345 AC (NORMODYNE 100 MG/20 IV ML VIAL) Labetalol HCl 40 MG ASDIR PRN 08/18 2345 AC (NORMODYNE 100 MG/20 IV ML VIAL) Labetalol HCl 80 MG ASDIR PRN 08/18 2345 AC (NORMODYNE 100 MG/20 IV ML VIAL) Labetalol HCl 200 MG ONCE 08/18 2345 CKD (LABETALOL HCL 200 PO 08/19 0445 MG) Gastrointestinal Drugs Sig/Keri Start time Last Medication Dose Route Stop Time Status Admin Metoclopramide HCl 10 MG ONCE ONE 08/19 30 DC (METOCLOPRAMIDE HCL IV 08/19 31 10 MG/2 ML VIAL) Ondansetron HCl 4 MG ONCE ONE 08/19 30 DC (ZOFRAN 2 MG/ML 4 MG IV 08/19 31 SYR) Hormones And Synthetic Substit Sig/Keri Start time Last Medication Dose Route Stop Time Status Admin Betamethasone Acet/ 12 MG Q24H 08/195 AC Betameth SodPhos IM 08/20 0046 (CELESTONE SOLUSPAN 12MG/2 ML SYR) Allergies Coded Allergies: cefaclor (From CECLOR) (RASH 08/18/22) codeine (NAUSEA, VOMITING 08/18/22) erythromycin base (UNKNOWN 08/18/22) iodine (ANAPHYLACTIC 08/18/22) Review of Systems Constitutional: Denies: chills, fever. Skin: swelling. Denies: bruising, itching, laceration, rash. Allergy/Immun: Denies: rhinorrhea. Eyes: Denies: visual loss/blurred. ENT: Denies: earache, sore throat, throat pain. Respiratory: Denies: non productive cough, productive cough ( sputum), SOB. Cardiovascular: Denies: chest pain, palpitations. GI: Reports: nausea. Denies: abdominal pain, constip ation, diarrhea, vomiting. : Reports: . Denies: dysuria, vaginal blee ding, vaginal discharge. Musculoskeletal: Denies: joint pain, joint swelling, lumbar pain. Heme: Denies: bleeding, bruising. Neuro: headache. Denies: syncope, unable to speak, visi on change. Psych: Denies: depression, homicida l ideation, suicidal ideation, visual hallucination. Objective General VS: Last Documented: Result Date Time B/P Mean 119.0 08/185 B/P 150/97 08/18 234 Pulse 79 08/18 234 Temp 97.6 08/18 2315 Resp 16 08/18 231 Vital Signs Date Temp Pulse Resp B/P B/P Mean Pulse Ox FiO2 08/18 97.6 79-104 16 150-173/92-107 117.0-134.0 PATIENT WEIGHT: Weight (lb): Weight (oz): Weight (kg): 99.211622 Notes: WNWDFNAD Physical Exam HEENT: normocephalic w/o injury, pupils equal, n o scleral icterus Cardiac: regular rate and rhythm Lungs: unlabored breathing Neuro: Exam: alert, oriented x3, normal speech, CNII-X II grossly intact, reflexes equal bilat DTR's (lower extr): normal 1-2+, no clonus Abdomen: gravid, soft, no abnormal tenderness, n o guarding, no rebound tenderness Musculoskeletal: normal insp ection, painless range of motion, no CVA tenderness Genitourinary: no bladder distention, no flank p ain, no urinary catheter Uterine activity: Monitor: toco Frequency (description): rare FHR evaluation: Baseline: 130 bpm Variability: moderate 6-25 bpm Accelerations: 15 X 15 Decelerations: none FHR category: category 1 Notes: discontinuous Lower extremities: Edema: 2+ pitting Results Findings/Data: Laboratory Tests: 08/19 0004 Hematology WBC (6.5 - 12.3 K/mm3) 10.4 RBC (3.51 - 4.69 M/mm3) 3.23 L Hgb (10.1 - 13.8 g/dL) 9.2 L Hct (32.5 - 41.8 %) 28.5 L MCV (84.6 - 96.6 fL) 88.2 MCH (27.3 - 33.9 pg) 28.5 MCHC (32.0 - 34.2 gm/dL) 32.3 RDW (12.2 - 16.3 %) 12.1 L Plt Count (134 - 363 K/mm3) 242 MPV (9.2 - 12.7 fL) 11.9 Neut % (Auto) (57.9 - 77.3 %) 70.2 Lymph % (Auto) (14.5 - 29.7 %) 22.2 Piatt % (Auto) (3.6 - 10.2 %) 6.2 Eos % (Auto) (0.0 - 3.0 %) 0.7 Baso % (Auto) (0.1 - 0.9 %) 0.4 Neut # (Auto) (K/mm3) 7.3 Lymph # (Auto) (K/mm3) 2.3 Piatt # (Auto) (K/mm3) 0.6 Eos # (Auto) (K/mm3) 0.07 Baso # (Auto) (K/mm3) 0.0 Diagnosis, Assessment Plan Diagnosis, Assessment Plan Problem List/A P: 1. Headache 2. Edema 3. 34 weeks gestation of 4. Elevated blood pressure affecting pr egnancy in third trimester, antepartum Free Text A P: check labs, urine reglan and phenergan for PAUL starting celestone as pt likley to need delivery soon Rom test Electronically Signed by Stacey Meehan MD on at 0049 Addendum 1: 08/19/22 0117 by Stacey Meehan MD Patient Addendum Addendum Laboratory Tests: 08/19 08/19 0004 0000 Chemistry Sodium (135 - 145 mEq/L) 138 Potassium (3.5 - 5.0 mEq/L) 3.8 Chloride (100 - 115 mEq/L) 104 Carbon Dioxide (22 - 31 mEq/L) 28 Anion Gap (10 - 20) 9.70 L BUN (7 - 18 mg/dL) 11 Creatinine (0.5 - 1.0 mg/dL) 0.7 Glomerular Filtr Rate (>60 ml/min) 119 Glucose (65 - 110 mg/dL) 100 Calcium (8.4 - 10.2 mg/dL) 8.5 Total Bilirubin (0.2 - 1.0 mg/dL) 0.1 L AST (15 - 37 units/L) 15 ALT (12 - 78 units/L) 10 L Total Alk Phosphatase (46 - 116 units/L) 114 Total Protein (6.3 - 8.2 gm/dL) 6.2 L Albumin (3.4 - 4.8 gm/dL) 2.4 L Hematology WBC (6.5 - 12.3 K/mm3) 10.4 RBC (3.51 - 4.69 M/mm3) 3.23 L Hgb (10.1 - 13.8 g/dL) 9.2 L Hct (32.5 - 41.8 %) 28.5 L MCV (84.6 - 96.6 fL) 88.2 MCH (27.3 - 33.9 pg) 28.5 MCHC (32.0 - 34.2 gm/dL) 32.3 RDW (12.2 - 16.3 %) 12.1 L Plt Count (134 - 363 K/mm3) 242 MPV (9.2 - 12.7 fL) 11.9 Neut % (Auto) (57.9 - 77.3 %) 70.2 Lymph % (Auto) (14.5 - 29.7 %) 22.2 Piatt % (Auto) (3.6 - 10.2 %) 6.2 Eos % (Auto) (0.0 - 3.0 %) 0.7 Baso % (Auto) (0.1 - 0.9 %) 0.4 Neut # (Auto) (K/mm3) 7.3 Lymph # (Auto) (K/mm3) 2.3 Piatt # (Auto) (K/mm3) 0.6 Eos # (Auto) (K/mm3) 0.07 Baso # (Auto) (K/mm3) 0.0 Urines Ur Random Creatinine (mg/dL) 189.2 U Random Total Protein (mg/dL) 52.3 Protein/Creatinin Ratio (<200 mg/gcrea) 276.4 H BPs were severe and pt w PAUL I ordered labetolol protocol and a dose PO. I thought the nurse had given, but she had not--BPs slightlyimproved, but w PAUL I wo uld still admit. I d/w Dr Bullard (bt at that time I though t she had gotten the laebtolol)--admit orders given (I still think appropriate)--celestone, 24 hr urine protein, BP q 4 h Electronically Signed by Stacey Meehan MD on at 0117 RPT #:[id number] END OF REPORT 2022-08-05 16:23:00-00:00 [facility] ([facility]) EMERGENCY PROVIDER REPORT REPORT#:[id number] REPORT STATUS: Signed DATE:08/05/22 TIME: 1623 PATIENT: KATHERINE GALVEZ UNIT #: [id number] ROOM/BED: AGE: 31 SEX: F PCP PHYS: Ashlee Lamb MD SERVICE AUTHOR: Stacey Meehan MD * ALL edits or amendments must be made on the [employer]/computer document * TAMARA History Chief complaint: edema HPI: 31 yo , 32 3/7 wks, EDC 09/27. 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. She has noticed in the last week more swelling a nd weight gain from swelling. She has had a PAUL--rather continuous (ran ges 2-02/05). She monitored her BP over the weekend and it was 140-1 50/90s. Her headache is more frontal and behind her eyes. Tylenol helps some. She worked last night and checked her urine which showed protein, and she is worried about PreE. + FM, -ROM, off and on bleeding the entire w/o a s ource--nothing right now. No ctxn, perhaps a few Br- Hks after working a shift. She denies vi sual changes, no scotomata. Maybe some fatigue in eyes after working a night. She has h ad nausea, epig pain and heartburn the entire preg which was howard lly resolved after she found a surgeon to release her lap band. She occasionally still takes a Zofran. PMHx PCOS PSHx lap band, tonsils Meds PNV, iron, Zofran prn Allergic to iodine--> ANAPHYLAXIS Soc , no habits, no DU FHx neg Medications: Home Medications: Medication Dose/Rte/Freq Days Qty Entered Last Max Daily Dose Reviewed No Known Home Medications Allergies Coded Allergies: cefaclor (From CECLOR) (RASH 07/18/14) codeine (NAUSEA, VOMITING 07/18/14) erythromycin base (UNKNOWN 07/18/14) Review of Systems Constitutional: Denies: chills, fever. Skin: Denies: bruising, itching, rash, swelling. Allergy/Immun: Denies: rhinorrhea, sneezing. ENT: Denies: earache, sore throat, throat pain. Respiratory: Denies: non productive cough , productive cough (sputum), SOB (mild preg related) . Cardiovascular: edema. Denies: chest pain. GI: Denies: abdominal pain, constipation, diarrhea, nausea, vomiting. : Reports: . Denies: hematuria. Musculoskeletal: lumbar pain (some). Denies: extremity pain. Neuro: headache. Denies: syncope, unable to speak, visi on change. Psych: Denies: anxiety, depression, homicidal ideation, suicidal ideation. Objective General VS: Last Documented: Result Date Time B/P Mean 95.0 08/05 1551 B/P 122/77 08/05 1551 Pulse 86 08/05 1551 Temp 98.6 08/05 1535 Resp 18 08/05 1535 Vital Signs Date Temp Pulse Resp B/P B/P Mean Pulse Ox FiO2 08/05 98.6 86-90 18 122-136/77-87 95.0-106.0 PATIENT WEIGHT: Weight (lb): Weight (oz): Weight (kg): obese Notes: [id number] Physical Exam HEENT: normocephalic w/o injury, pupils equal, n o scleral icterus Cardiac: regular rate and rhythm Lungs: unlabored breathing Neuro: Exam: alert, normal speech, CNII-XII grossly in tact, reflexes equal bilat DTR's (lower extr): normal 1-2+ Abdomen: gravid, soft, no abnormal tenderness, n o guarding, no rebound tenderness Musculoskeletal: normal inspection, painless ran ge of motion Genitourinary: no bladder distention, no urinary catheter Uterine activity: Monitor: toco Frequency (description): none FHR evaluation: Baseline: 130 bpm Variability: moderate 6-25 bpm Accelerations: 15 X 15 Decelerations: none FHR category: category 1 Membranes: Membranes: Intact Lower extremities: Edema: trace, 1+ pitting (maybe-no sock villarreal t o note) Calf tenderness: negative Results Findings/Data: Laboratory Tests: 08/05 08/05 1543 1540 Hematology WBC (6.5 - 12.3 K/mm3) 10.2 RBC (3.51 - 4.69 M/mm3) 3.30 L Hgb (10.1 - 13.8 g/dL) 9.5 L Hct (32.5 - 41.8 %) 29.4 L MCV (84.6 - 96.6 fL) 89.1 MCH (27.3 - 33.9 pg) 28.8 MCHC (32.0 - 34.2 gm/dL) 32.3 RDW (12.2 - 16.3 %) 12.3 Plt Count (134 - 363 K/mm3) 251 MPV (9.2 - 12.7 fL) 11.3 Neut % (Auto) (57.9 - 77.3 %) 71.9 Lymph % (Auto) (14.5 - 29.7 %) 20.3 Piatt % (Auto) (3.6 - 10.2 %) 5.8 Eos % (Auto) (0.0 - 3.0 %) 1.4 Baso % (Auto) (0.1 - 0.9 %) 0.3 Neut # (Auto) (K/mm3) 7.3 Lymph # (Auto) (K/mm3) 2.1 Piatt # (Auto) (K/mm3) 0.6 Eos # (Auto) (K/mm3) 0.14 Baso # (Auto) (K/mm3) 0.0 Urines Urine Color (YELLOW) YELLOW Urine Appearance (CLEAR) Slightly-Cloudy Urine pH (5 - 9) 6.0 Ur Specific [place] (1.001 - 1.035) 1.021 Urine Protein (NEG) NEGATIVE Urine Glucose (UA) (NEG) NEGATIVE Urine Ketones (NEG) NEGATIVE Urine Blood (NEG) NEG Urine Nitrite (NEG) NEG Urine Bilirubin (NEG) NEGATIVE Urine Urobilinogen (NEG mg/dL) NEGATIVE Ur Leukocyte Esterase (NEG) TRACE H Urine RBC (NONE SEEN #/hpf) 0-2 Urine WBC (NONE SEEN #/hpf) 0-2 Ur Epithelial Cells (RARE - FEW #/HPF) RARE Urine Bacteria (RARE - FEW /HPF) RARE Urine Mucus (NONE SEEN) 4+ Diagnosis, Assessment Plan Diagnosis, Assessment Plan Problem List/A P: 1. 32 weeks gestation of 2. Edema 3. Headache Free Text A P: Her BPs all look good here. Awaiting the rest of the labs Pt declines meds for PAUL. I told her she can also take benedryl for PAUL (as rec per ACOG) Electronically Signed by Stacey Meehan MD on 04/19 at 1642 RPT #:[id number] END OF REPORT
[2023-03-13] MEDS ORDERED: CEFDINIR 300 MG CAP PO ONE (21:47)
[2023-03-13 22:22] LABS: SARS-CoV-2 Antigen Rapid Res Negative (Negative)
--- NOTE | 2023-03-13 23:16 | EDPHYS ---
Physician Documentation [facility] Name: Katherine Marrufo Age: 32 yrs Sex: Female : 1990 Arrival Date: 03/13/2023 Time: 21:16 Bed 4 Private MD: ED Physician Elvin Gibson HPI: 03/13 21:28 This 32 yrs old White Female presents to ER via Ambulatory with complaints of Fever, sp4 Cough, Congestion. 03/14 06:16 Patient presents with fever, cough, congestion, nasal drainage starting yesterday. At sp4 home patient had a reported fever 101 and consumed Tylenol and ibuprofen prior to arrival with resolution of fever. Patient reported greenish nasal discharge. Patient reported bilateral maxillary pain. . 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 - Social history:: Smoking status: Reported history of juuling and/or vaping. - Family history:: not pertinent. ROS: 03/14 06:16 Constitutional: Negative for chills, and weight loss, positive for fever, congestion, sp4 nasal discharge, maxillary sinus pain, cough Eyes: Negative for injury, pain, redness, and discharge, ENT: Negative for injury, pain, positive for nasal discharge, upper respiratory congestion, cough, maxillary pain Neck: Negative for injury, pain, and swelling, Cardiovascular: Negative for chest pain, palpitations, and edema, Respiratory: Negative for shortness of breath, wheezing, and pleuritic chest pain, positive for cough Abdomen/GI: Negative for abdominal pain, nausea, vomiting, diarrhea, and constipation, Back: Negative for injury and pain, : Negative for injury, bleeding, discharge, and swelling, MS/Extremity: Negative for injury and deformity, Skin: Negative for injury, rash, and discoloration, Neuro: Negative for headache, weakness, numbness, tingling, and seizure, Psych: Negative for depression, anxiety, Allergy/Immunology: Negative for hives, rash, and allergies Endocrine: Negative for neck swelling, polydipsia, polyuria, polyphagia, and weight changes Hematologic/Lymphatic: Negative for swollen nodes, abnormal bleeding, and unusual bruising Exam: 06:16 Constitutional: This is a well developed, well nourished patient who is awake, alert, sp4 and in no acute distress. Head/Face: Normocephalic, atraumatic. Eyes: Pupils equal round and reactive to light, extra-ocular motions intact. Lids and lashes normal. Conjunctiva and sclera are not injected. Cornea within normal limits. Periorbital areas with no swelling, redness, or edema. ENT: Nares patent. No nasal discharge, no septal abnormalities noted. Tympanic membranes are normal and external auditory canals are clear. Positive bilateral pharyngeal redness without exudates. Positive nasal discharge that is purulent Neck: Trachea midline, no thyromegaly or masses palpated, and no cervical lymphadenopathy. Supple, full range of motion without nuchal rigidity, or vertebral point tenderness. Chest/axilla: Normal chest wall appearance and motion. Nontender with no deformity. No lesions are appreciated. Cardiovascular: Regular rate and rhythm with a normal S1 and S2. No gallops, murmurs, or rubs. Normal PMI, no JVD. No pulse deficits. Respiratory: Lungs have equal breath sounds bilaterally, clear to auscultation and percussion. No rales, rhonchi or wheezes noted. No increased work of breathing, no retractions or nasal flaring. Abdomen/GI: Soft, non-tender, with normal bowel sounds. No distension or tympany. No guarding or rebound. No evidence of tenderness throughout. Back: No spinal tenderness. No costovertebral tenderness. Skin: Warm, dry with normal turgor. Normal color with no rashes, no lesions, and no evidence of cellulitis. MS/ Extremity: Pulses equal, no cyanosis. Neurovascular intact. Full, normal range of motion. Neuro: Awake and alert, GCS 15, oriented to person, place, time, and situation. Cranial nerves II-XII grossly intact. Motor strength 5/5 in all extremities. Sensory grossly intact. Psych: Awake, alert, with orientation to person, place and time. Behavior, mood, and affect are within normal limits Vital Signs: 03/13 21:19 BP 141 / 97; Pulse 104; Resp 18; Temp 98.8; Pulse Ox 100% ; Weight 88.45 kg; Height 5 vc1 ft. 4 in. ; Pain 3/10; 22:39 BP 146 / 89; Pulse 85; Resp 16; Temp 97.5; Pulse Ox 97% on R/A; rv 21:19 Body Mass Index 33.47 (88.45 kg, 162.56 cm) vc1 21:19 Pain Scale: Adult vc1 MDM: 21:37 Patient medically screened. sp4 03/14 06:16 Differential diagnosis: viral Infection, bacterial infection, URI, bronchitis, sp4 pneumonia gastroenteritis. Data reviewed: vital signs, nurses notes, lab test result(s), Flu: negative. Consideration of Admission/Observation Escalation of care including admission/observation considered. ED course: Patient was given cefdinir p.o. started on antibiotics for signs of acute maxillary sinusitis and purulent rhinitis. Stable for discharge home at this time with extended course of p.o. cefdinir twice a day for 10-day. 03/13 21:36 Order name: RSV; Complete Time: 23:11 sp4 03/13 21:36 Order name: SARS RAPID; Complete Time: 23:11 sp4 03/13 21:36 Order name: Influenza Screen (a \T\ B); Complete Time: 23:11 sp4 Administered Medications: 03/13 21:48 Drug: Cefdinir PO 300 mg Route: PO; as6 22:57 Follow up: Response: No adverse reaction as6 Disposition Summary: 03/13/23 23:16 Discharge Ordered Location: Home sp4 Problem: new sp4 Symptoms: have improved sp4 Condition: Fair sp4 Diagnosis - Other acute sinusitis sp4 - Acute bronchitis, unspecified sp4 - Acute purulent rhinitis. Acute bacterial sinusitis sp4 Followup: sp4 - With: Private Physician - When: As needed - Reason: Recheck today's complaints Discharge Instructions: - Discharge Summary Sheet sp4 - Acute Bronchitis, Adult sp4 Forms: - Antibiotic Education sp4 Prescriptions: - cefdinir 300 mg Oral capsule - take 1 capsule by ORAL route every 12 hours; 20 capsule; Refills: 0, Product sp4 Selection Permitted - ondansetron 4 mg Oral Tablet,disintegrating - take 2 tablet by ORAL route every 6 hours for 24 hours PRN nausea; 30 tablet; sp4 Refills: 0, Product Selection Permitted - Tessalon Perles 100 mg Oral Capsule - take 1 capsule by ORAL route every 6 hours As needed PRN cough; 30 capsule; sp4 Refills: 0, Product Selection Permitted 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
--- NOTE | 2023-03-13 23:16 | ER ---
Nurse's Notes [facility] Name: Katherine Marrufo Age: 32 yrs Sex: Female : 1990 Arrival Date: 03/13/2023 Time: 21:16 Bed 4 Private MD: Diagnosis: Other acute sinusitis;Acute bronchitis, unspecified;Acute purulent rhinitis. Acute bacterial sinusitis Presentation: 03/13 21:19 Chief complaint: Patient states: I have cough congestion, runny nose, and fever and my vc1 ears hurt. Ebola Screen: Patient negative for fever greater than or equal to 101.5 degrees Fahrenheit, and additional compatible Ebola Virus Disease symptoms Patient denies exposure to infectious person. Patient denies travel to an Ebola-affected area in the 21 days before illness onset. No symptoms or risks identified at this time. Initial Sepsis Screen: Does the patient meet any 2 criteria? HR > 90 bpm. Yes Does the patient have a suspected source of infection? Yes: Productive cough/pneumonia. Risk Assessment: Do you want to hurt yourself or someone else? Patient reports no desire to harm self or others. Note my temp got to 101.4. Onset of symptoms was March 13, 2023. Care prior to arrival: Medication(s) given: Motrin, 800 mg, Tylenol, 1000 mg. 21:19 Acuity: PIA 3 vc1 21:26 Coronavirus screen: Vaccine status: Patient reports receiving the 2nd dose of the covid vc1 vaccine. chills, congestion, cough unrelated to allergies, fever, runny nose, Client presents with at least one sign or symptom that may indicate coronavirus-19. Standard/surgical mask placed on the client. Provider contacted for isolation considerations. Resp Distress? No respiratory distress is noted at this time. 21:26 Method Of Arrival: Ambulatory vc1 Triage Assessment: 21:26 General: Appears in no apparent distress. uncomfortable, ill, Behavior is calm, vc1 cooperative, appropriate for age. Pain: Complains of pain in right ear and left ear Pain does not radiate. Pain currently is 3 out of 10 on a pain scale. EENT: Reports pain in left ear and right ear. Neuro: Level of Consciousness is awake, alert, obeys commands, Oriented to person, place, time, situation, Appropriate for age. Cardiovascular: No deficits noted. Respiratory: Airway is patent Respiratory effort is even, unlabored, Respiratory pattern is regular, symmetrical. GI: No deficits noted. No signs and/or symptoms were reported involving the gastrointestinal system. : No deficits noted. No signs and/or symptoms were reported regarding the genitourinary system. Derm: No deficits noted. No signs and/or symptoms reported regarding the dermatologic system. Musculoskeletal: No deficits noted. No signs and/or symptoms reported regarding the musculoskeletal system. 22:00 Respiratory: Breath sounds are clear. 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 - Social history:: Smoking status: Reported history of juuling and/or vaping. - Family history:: not pertinent. Screenin:26 Abuse screen: Denies threats or abuse. Nutritional screening: No deficits noted. vc1 Tuberculosis screening: No symptoms or risk factors identified. 22:00 [facility] ED Fall Risk Assessment (Adult) History of falling in the last 3 months, rv including since admission No falls in past 3 months (0 pts) Confusion or Disorientation No (0 pts) Intoxicated or Sedated No (0 pts) Impaired Gait Mobility Assist Device Used No (0 pt) Altered Elimination No (0 pt) Score/Fall Risk Level 0 - 2 = Low Risk Oriented to surroundings, Maintained a safe environment, Educated pt \T\ family on fall prevention, incl call for assistance when getting out of bed, Assessed \T\ reinforced patient's understanding of fall precautions, Provided non-skid footwear, Hourly rounding (assess needs \T\ fall precautionary measures) done, Used ambulatory aids as needed (educated on \T\ assisted with), Used gait belt as appropriate. Vital Signs: 21:19 BP 141 / 97; Pulse 104; Resp 18; Temp 98.8; Pulse Ox 100% ; Weight 88.45 kg; Height 5 vc1 ft. 4 in. ; Pain 3/10; 22:39 BP 146 / 89; Pulse 85; Resp 16; Temp 97.5; Pulse Ox 97% on R/A; rv 21:19 Body Mass Index 33.47 (88.45 kg, 162.56 cm) vc1 21:19 Pain Scale: Adult vc1 ED Course: 21:18 Patient arrived in ED. jj6 21:24 Triage completed. vc1 21:25 Arm band placed on left wrist. vc1 21:28 Elvin Gibson MD is Attending Physician. sp4 21:37 Mickey Lee RN is Primary Nurse. as6 22:00 Patient has correct armband on for positive identification. rv 23:20 No provider procedures requiring assistance completed. Patient did not have IV access rv during this emergency room visit. Administered Medications: 21:48 Drug: Cefdinir PO 300 mg Route: PO; as6 22:57 Follow up: Response: No adverse reaction as6 Medication: 21:27 VIS not applicable for this client. vc1 Outcome: 23:16 Discharge ordered by . sp4 23:21 Discharged to home ambulatory. rv 23:21 Condition: good 23:21 Discharge instructions given to patient, Instructed on discharge instructions, follow up and referral plans. medication usage, Demonstrated understanding of instructions, follow-up care, medications, Prescriptions given X 3. 23:22 Patient left the ED. rv Signatures: Chidi Pérez RN RN rv Claire Alfred 6 Mickey Lee RN RN as6 Griselda Espinoza RN RN vc1 Elvin Gibson MD MD sp4 Corrections: (The following items were deleted from the chart) 21:25 21:24 Allergies: Ceclor; vc1 vc1 :25 21:24 Allergies: Codeine; vc1 vc1 :25 21:24 PMHx: Asthma; vc1 vc1
[2023-03-13 23:29] VITALS: BP 146/89; TEMP 97.5; O2SAT 97
== END 2023-03-13 23:22 | disposition home or self-care (01) ==
LOC: ER 21:16
DX: J01.80 Other acute sinusitis (principal); J20.9 Acute bronchitis, unspecified; J31.0 Chronic rhinitis; Z20.822 Contact with and (suspected) exposure to COVID-19; Z88.0 Allergy status to penicillin; Z88.1 Allergy status to other antibiotic agents; Z88.2 Allergy status to sulfonamides; Z91.048 Other nonmedicinal substance allergy status
CPT/HCPCS: 36415; 87804; 87807; 87811; 99283

== ENCOUNTER 2023-07-20 09:49 | Emergency (ER) | payer BC ==
--- OUTSIDE RECORDS SUMMARY | 2023-07-20 09:54 | XMS REPORT | Continuity of Care Document ---
:1990 Author Organization [facility] t Address [address] [facility] [place] [address] Care Team Providers Name Role Phone Miguel Angel Fox MD Primary Care Physician Miguel Angel Fox MD Attending Clinician Ashlee Lamb Attending Clinician Unavailable Stacey Meehan Attending Clinician Unavailable Tanisha Baeza MD Attending Clinician TANISHA BAEZA Attending [...] cefaclor DA Active U RASH 2021-09 [facility] [place] CODEINE DRUG Active Hives 0 Univers INGREDI 5-12 ity of 00:00: [place] 00 [facility] Branch Azithrom Propensi Active Hives 0 Univer s ycin ty to 5-12 ity of adverse 00:00: [place] reaction 00 Medical s Branch Cefaclor Propensi Active Hives 0 Univer s ty to 5-12 ity of adverse 00:00: [place] reaction 00 Medical s Branch Codeine Propensi Active Hives 2021-0 Univers ty to 5-12 ity of adverse 00:00: [place] reaction 00 Medical s Branch Iodine Propensi Active Anaphylaxis 2021-0 Uni vers ty to 5-12 ity of adverse 00:00: [place] reaction 00 Medical s Branch IODINE DRUG Active Anaphylaxis 0 Unive rs INGREDI 5-12 ity of 00:00: [place] 00 Medical [facility] CEFACLOR DRUG Active Hives 0 Univers INGREDI 5-12 ity of 00:00: [place] 00 [facility] AZITHROM DRUG Active Hives Univers YCIN INGREDI 5-12 ity of 00:00: [place] 00 [facility] codeine DA Active U NAUSEA, 2013-09 [facility] VOMITING 0-20 [facility] 00:[facility] [place] cefaclor DA Active U RASH 2013-09 [facility] 0-20 [facility] 00:[facility]: [facility] 00 [facility] [place] erythrom DA Active U UNKNOWN 2013-09 [facility] ycin 0-20 [facility] base 00:00: [facility]osp[facility] 00 [facility] [place] NO KNOWN Drug Active Univers ALLERGIE Class ity of S [facility] Social History Social Habit Start Date Stop Date Quantity Comments Source Sexual orientation Method [facility] Gender identity [facility] Exposure to 2022-01-28 2022-02-07 Not sure [facility] SARS-CoV-2 (event) 00:00:00 03:14[facility] Sex Assigned At [birth year] Met [facility] 00:00:00 00:00:00 Smoking Status Start Date Stop Date Source Tobacco smoking consumption unknown [facility] Medications Ordered Filled Start Stop Current [...] Lesley 02/07/22 at 0445, STAT oseltamivir Yes [id number] 75mg Take 1 Univers (TAMIFLU) 5-12 capsule by ity of 75 mg 00:00: mouth 2 [place] capsule 00 (two) Medical times Branch daily. Vital Signs Vital Name Observation Time Observation Value Comments Source Systolic blood 2022-02-07 10:00:00 126 mm[Hg] Univer sity of pressure [facility] Diastolic blood 2022-02-07 10:00:00 75 mm[Hg] Unive rsity of [facility] Heart rate 2022-02-07 10:00:00 100 /min Universi ty [facility] Respiratory rate 2022-02-07 10:00:00 185 /min [facility] in 2022-02-07 10:00:00 91 /min University Arterial blood by [facility] Pulse oximetry Branch Body temperature 2022-02-07 09:00:00 37.72 [facility] Body height 2022-02-07 08:16:00 160 cm [facility] Body weight 2022-02-07 08:16:00 81.647 kg [facility] BMI 2022-02-07 08:16:00 31.89 kg/m2 [facility] Procedures Procedure Date / Time Performing Source Performed Clinician PLATELET AGGREGATION PANEL 2022-12-19 14:57:00 [facility] VWD PANEL 2022-12-19 14:57:00 [facility]ital THROMBOELASTOGRAPH 2022-12-19 14:57:00 [facility] CARDIOLIPIN ANTIBODIES 2022-12-19 14:57:00 [facility] MISCELLANEOUS REFERRAL TEST 2022-12-19 14:57:00 [facility] [id number] 2022-08-22 00:00:00 [facility] [id number] 2022-08-22 00:[facility]00 [facility] [id number] 2022-08-22 00:00:00 [facility] [id number] 2022-08-22 00:00:00 [facility] [id number] 2022-08-22 00:00:00 [facility] [id number] 2022-08-22 00:00:00 [facility] LACTIC ACID WHOLE BLOOD 2022-02-07 08:45:00 Tanisha Baeza [facility] LIPASE 2022-02-07 08:44:00 Tanisha Baeza [place] [facility] COMP. METABOLIC PANEL 2022-02-07 08:44:00 Tanisha Baeza [facility] ([id number]) Medical Branch CBC WITH DIFF 2022-02-07 08:44:00 Tanisha Baeza [place] [facility] URINALYSIS 2022-02-07 08:44:00 Tanisha Baeza [place] [facility] RAPID STREP SCREEN FOR GROUP 2022-02-07 08:27:00 Tanisha Baeza [facility] RAPID INFLUENZA A/B 2022-02-07 08:27:00 Tanisha Baeza [facility] Branch COVID-19 (ID NOW RAPID 2022-02-07 08:27:00 Tanisha Baeza [facility] TESTING) Medical Branch NOTICE OF PRIVACY PRACTICES 2022-02-07 08:14:21 Doctor Neelam razo [facility] CONSENT/REFUSAL FOR 2022-02-07 08:12:20 Doctor Gwen [facility] DIAGNOSIS AND TREATMENT [facility] Plan of Care Planned Activity Planned Date Details Comments Source Future Scheduled 2023-07-13 [facility]-19 [facility]ACCINE [facility] Test 19:30:29 (#1) [code = COVID-19 VACCINE (#1)] Future Scheduled 2023-07-13 [facility] Test 19:30:29 screening (procedure) [code = 529908954] Future Scheduled 2023-07-13 Screening for [facility] Test 19:30:29 malignant neoplasm of cervix (procedure) [code = 936163888] Future Scheduled 2023-07-13 [facility]ZA [facility]ACCINE [facility] 19:30:29 (#1) [code = INFLUENZA VACCINE (#1)] Future Scheduled 2023-07-13 RSV VACCINES > 60 [facility] Test 19:30:29 YR (1 - 1-dose 60+ series) [code = RSV VACCINES > 60 YR (1 - 1-dose 60+ series)] Future Scheduled 2023-02-05 COVID-[address] [facility] Test 11:56:03 (#1) [code = COVID-19 VACCINE (#1)] Future Scheduled 2023-02-05 [facility] Test 11:56:03 screening (procedure) [code = 618456163] Future Scheduled 2023-02-05 [facility] Test 11:56:03 malignant neoplasm of cervix (procedure) [code = 867878954] Future Scheduled 2023-02-05 INFLUENZA VACCINE [facility] Test 11:56:03 [code = INFLUENZA VACCINE] Encounters Start End Encounter Admission Attending Care Care Encounter Source Date/Time Date/Time Type Type Clinicians Facility Department ID 2022-12-19 2022-12-19 Lab Ruddy, 1.2.840.1 [id number] Methodi 09:30:00 09:35:00 Miguel Angel [place]. [address].1.[address] 3.430.2.7 Hospit a .3.413387 l .8 2022-12-19 2022-12-19 Lab Fox, 1.2.840.1 [id number] Methodi 09:30:00 09:35:00 Miguel Angel H. 75174.1.[address] 3.430.2.7 Hospit a .3.888676 l .8 2022-12-19 2022-12-19 Travel 1.2.840.1 1.2.124.559 [id number] Methodi 00:00:00 00:00:[address] 3.430.2.7 0.2.7.3.698 Ho spita .3.707845 084.8 l .8 2022-12-19 2022-12-19 Travel 1.2.840.1 1.2.130.716 [id number] Methodi 00:00:00 00:00:[address] 3.430.2.7 0.2.7.3.698 Ho spita .3.411702 084.8 l .8 2022-08-19 2022-08-24 Inpatient EM Michaelesther, [facility] OBPP [id number] [facility] 02:04:00 15:00:00 Ashlee 39 [facility] 2022-08-05 2022-08-05 Emergency EM Zoran, [facility] TAMARA [id number] [facility] 15:24:00 18:25:00 Stacey 43 [facility] 2022-02-07 2022-02-07 Emergency [facility] 1.2.003.772 [id number] Univers 03:20:00 05:28:00 Tanisha ROBLES 350.1.13.10 i ty moises CASTELAN 4.2.7.2.686 [facility] [id number] [place] [address] Branch 2022-02-07 2022-02-07 [id number] Univers 03:20:00 05:28:00 TANISHA gracia [facility] Results Test Description Test Time Test Comments Results Result Comments Source Miscellaneous referral test 2022-12-24 22:54:00 Test Item Value Reference Range Interpretation Comme nts Misc test name (test VWF multimer code = 2566) Misc test result (test see comment VWF Q [...] is suggested. =Reported: 11/28 14:45 performing site :[employer] [address] [place], [place] MISAEL (test code = MISAEL) VERSITITEST: VWF QUANTITATIVE MULTIMERFROZEN CITRATED PLASMADOS: 12/19/2022FEDEX [id number] [facility] [id number] 22:54:00 Test Item Value Reference Range Interpretation Comments Mis test name VWF multimer (test code = 2566) Misc test see comment VWF Quantitativ e result (test Multimer High M W code = 1730) Multimers ............ 31 %Intermediate M W Multimers .... 46 %Low MW Multime r .............. 23 % VWF Multimer Distribution: Normal - - - - - - - - - - - - - - - - - - - - - - - - - - - - - - VWF Multimer Interpretation: Norm al distribution of multimers; no evidence of typ e 2A, Type 2B or platelet-type v on Willebrand defe ct by multimer analysis. Correlation wit h Factor VIII activity, other VWF assays and clin ical history is suggested. ==== ==== ==== Reported: 12/24/2022 14:4 5 performing site:[employer] [address] [place], [place] MISAEL (test code VERSITITEST: VWF = MISAEL) QUANTITATIVE MULTIMERFROZEN CITRATED PLASMADOS: 12/19/2022FEDEX [id number] 0585 [facility]2022-12-09 15:26:00 Test Item Value Reference Range Interpretation Comments SURGICAL (test code = SR) R UN DATE: 09/06/22 [facility] PAGE 1 RUN TIME: 1526 Specimen Inquiry RUN USER: INTERFACE P ATIENT: PEDRITO MARRUFO LOC: DANIS U #: [id number] AGE/SX: ROOM: 2019 RE08/19/22REG DR: Ashlee Lamb MD : 89 BED: A DIS: 08/24/22 STATUS: DIS IN TLOC: SPEC #: [id number] RECD: 08/26/22 STATUS: AMOR RESaturnino #: [id number] CHANDRA: 08/22/[address] [facility] [address]: Ashlee Lamb MD ENTERED: 08/26/22 SP TYPE: SURGICAL OTHR DR: DOES_NOT KNOW Mateo Burgos MD, Robert C MDORDERED: ANATOMIC SPEC, SPEC TRACK, [id number] COPIES TO: DOES_NOT KNOW Ashlee Lamb MD [address] [facility] [address] [place] [address] [email or web address] Mateo Burgos MD [address] [place] [address] Home Pascual MD [address] [place] [address] PROCEDURES: [id number] (08/26/22) TISSUES: A. PLACENTA, THIRD TRIMESTER (28 [...] of 34 weeks. CONTINUED ON NEXT PAGE R UN DATE: 09/06/22 [facility] PAGE 2 RUN TIME: 1526 Specimen Inquiry RUN USER: INTERFACE S PEC #: [id number] PATIENT: PEDRITO MARRUFO #[id number] (Continued) GROSS DESCRIPTION Received fixed, labeled with Patient's name, CECILY SHARP and "placenta", is a singletonplacenta with attached [...] located 2 cm away from the edge. Entry Level Electrical Engineer sectionssubmitted as follows: A1: Membrane roll and cordA2-4: Disc cross-sections.A5: surface nodule.A6: Disc cross sectioned fibrin/hemorrhagic nodule.XZ 09/05/22 Technical component performed at [facility],[id number] , [place] [address] Unless gross only, the diagnosis is based upon microscopic examination.Immunohistochemistr y: This test was developed and its performance [...] , 34.6 WEEKS, PRE-E WITH SEVERE FEATURES. -------- Signed SIGNATURE ON FILE Nathalie Gillespiealicia 09/06/22 1526 END OF REPORT COMPREHENSIVE METABOLIC [id number] 10:04:00 Test Item Value Reference Range Interpretation [...] the recommended for coreen for GFRby the [facility] Kidney Foundati on for Adults.The GFR will [...] TOTAL (test code = ALKP) CBC W/AUTO [id number] 09:33:00 Test Item Value Reference Range Interpretation [...] NORMAL NORMAL code = PLTMR) COMPREHENSIVE METABOLIC [id number] 10:53:00 Test Item Value Reference Range Interpretation [...] the recommended for coreen for GFRby the Nat nal Kidney Foundati on for Adults.The GFR [...] TOTAL (test code = ALKP) CBC W/AUTO [id number] 10:14:00 Test Item Value Reference Range Interpretation [...] NORMAL NORMAL code = PLTMR) COMPREHENSIVE METABOLIC [id number] 14:27:00 Test Item Value Reference Range Interpretation [...] the recommended for coreen for GFRby the Nat nal Kidney Foundati on for Adults.The GFR [...] NURSE ADVISED SHE WILL DO THE LABS @1222CBC W/AUTO [id number] 13:14:00 Test Item Value Reference Range Interpretation [...] NURSE ADVISED SHE WILL DO THE LABS @[id number] 20:56:00 Test Item Value Reference Range Interpretation Comments MAGNESIUM (test code = 5.0 mg/dL 1.8-2.4 HH RESUL TS CALLED TO [facility]) SHRAVAN SANTANA RN .READ BACK & CONFIRME D? Y.BY [id number] 08/21/222055. COMPREHENSIVE METABOLIC [id number] 19:49:00 Test Item Value Reference Range Interpretation [...] TOTAL (test code = ALKP) CBC W/AUTO [id number] 18:39:00 Test Item Value Reference Range Interpretation [...] NORMAL NORMAL code = PLTMR) COMPREHENSIVE METABOLIC [id number] 04:13:00 Test Item Value Reference Range Interpretation [...] TOTAL (test code = ALKP) CBC W/AUTO [id number] 04:09:00 Test Item Value Reference Range Interpretation [...] NORMAL NORMAL code = PLTMR) RUPTURE OF [id number] 02:15:00 Test Item Value Reference Range Interpretation Comments RUPTURE OF MEMBRANES (test code NON-RUPTURED = ROM) COMPREHENSIVE METABOLIC [id number] 07:09:00 Test Item Value Reference Range Interpretation [...] recommended for coreen for GFRby the [facility] for Ad[facility].The GFR will [...] TOTAL (test code = ALKP) CBC W/AUTO [id number] 07:05:00 Test Item Value Reference Range Interpretation [...] NORMAL code = PLTMR) UR CREATININE CLEARANCE [id number] 06:05:00 Test Item Value Reference Range Interpretation Comments CREATININE CLEARANCE RESULT (test 158 ml/min 70-120 H code = CREATCLR) CREATININE (test code = CREAT) 0.7 mg/dL 0.5-1.0 N UR CREATININE RANDOM (test code = 123.5 mg/dL CREATU) UR VOLUME (test code = VOL) 1300 ML UR PROTEIN [id number] 06:05:00 Test Item Value Reference Range Interpretation Comments UR PROTEIN RANDOM 39.6 mg/dL (test code = PROTU) UR PROTEIN 24HR (test 515 mg/24HR 20-150 HH RESULT S CALLED TO code = NYTD43R) THUAN BARTHOLOMEW.READ BACK & CONFIRMED? JUDY MerrittBY F.LAB.IR1 08/20 0604.Units for 24 HR Urine Protein h ave changed: New Un its = MG/24HR RUPTURE OF [id number] 09:58:00 Test Item Value Reference Range Interpretation Comments RUPTURE OF MEMBRANES (test code NON-RUPTURED = ROM) AG HEPATITIS B [id number] 03:27:00 Test Item Value Reference Range Interpretation Comments AG HEPATITIS B SURFACE (test code NONREACTIVE NONREACTIVE = HBSAG) AB HEPATITIS C [id number] 03:27:00 Test Item Value Reference Range Interpretation Comments AB HEPATITIS C (test code = NONREACTIVE NONREACTIVE HCVAB) SIGNAL TO CUTOFF (test code = 0.13 <0.80 N CUTOFF) AB [id number] 03:27:00 Test Item Value Reference Range Interpretation Comments AB TREPONEMA (test code = TREPAB) NONREACTIVE NONREACTIVE COMPREHENSIVE METABOLIC [id number] 00:54:00 Test Item Value Reference Range Interpretation [...] recommended for coreen for GFRby the [facility] on for Adults.The GFR will [...] TOTAL (test code = ALKP) UR PROTEIN/CREATININE [id number] 00:54:00 Test Item Value Reference Range Interpretation Comments UR PROTEIN RANDOM (test code = 52.3 mg/dL PROTU) UR CREATININE RANDOM (test 189.2 mg/dL code = CREATU) PROTEIN/CREATININE RATIO (test 276.4 mg/gcrea <200 H code = P/CRATIO) CBC W/AUTO [id number] 00:26:00 Test Item Value Reference Range Interpretation [...] NORMAL NORMAL code = PLTMR) COMPREHENSIVE METABOLIC [id number] 17:30:00 Test Item Value Reference Range Interpretation [...] the recommended for coreen for GFRby the Nat nal Kidney Foundati on for Adults.The GFR [...] N TOTAL (test code = ALKP) URIC [id number] 17:20:00 Test Item Value Reference Range Interpretation Comments URIC ACID (test code = URIC) 4.0 mg/dL 2.6-6.0 N LACTIC DEHYDROGENASE(LDH)2022-08-05 17:20:00 Test Item Value Reference Range Interpretation Comments LACTIC DEHYDROGENASE(LDH) (test 135 units/L 81-234 N code = LDH) UR PROTEIN/CREATININE [id number] 16:49:00 Test Item Value Reference Range Interpretation Comments UR PROTEIN RANDOM (test code = 24.7 mg/dL PROTU) UR CREATININE RANDOM (test 179.1 mg/dL code = CREATU) PROTEIN/CREATININE RATIO (test 137.9 mg/gcrea <200 code = P/CRATIO) URINALYSIS [id number] 16:05:00 Test Item Value Reference Range Interpretation [...] NONE SEEN URINE SAMPLE: CLEAN CATCHCBC W/AUTO [id number] 15:58:00 Test Item Value Reference Range Interpretation [...] NORMAL code = PLTMR) COMP. METABOLIC PANEL (83469)2022-02-07 09:44:25 Test Item Value Reference Range Interpretation Comments NA (test code = 137 mmol/L 135-145 3008639856) K (test code = 3.9 mmol/L 3.5-5.0 9402824248) CL (test code = 102 mmol/L 98-108 9811356252) CO2 TOTAL (test code = 23 mmol/L 23-31 1993463719) AGAP (test code = 2-16 9294268446) BUN (test code = 4 mg/dL 7-23 L 3288217973) GLUCOSE (test code = 95 mg/dL 70-110 8185226289) CREATININE (test code = 0.63 mg/dL 0.50-1.04 7307795303) TOTAL BILI (test code = 0.4 mg/dL 0.1-1.6 6348314878) CALCIUM (test code = 9.3 mg/dL 8.6-10.6 5885276658) T PROTEIN (test code = 7.9 g/dL 6.3-8.2 4940977579) ALBUMIN (test code = 4.8 g/dL 3.5-5.0 6331621150) ALK PHOS (test code = 51 U/L 34-122 9145816831) ALTv (test code = 43 U/L 5-35 H 1742-6) AST(SGOT) (test code = 32 U/L 13-40 9869549492) eGFR (test code = mL/min/1.73m2 4130609591) MISAEL (test code = MISAEL) Association of [...] tests). Lab Interpretation Abnormal (test code = 43719-8) [facility]41 Test Item Value Reference Range Interpretation Comments LIPASE (test code = 7466292475) 91 U/L 0-220 Lab Interpretation (test code = Normal 65269-8) [facility] [id number] 09:05:21 Test Item Value Reference Range Interpretation Comments WBC (test code = See_Comment [Automated 6690-2) message] The sy stem which generated this result transmitted reference range : 4.30 - 11.10 10*3/?L. The reference range was not used to interpret this result as normal/abnormal . RBC (test code = See_Comment [Automated 789-8) message] The sy stem which generated this [...] RDW-SD (test code = 41.8 fL 39.0-49.9 81245-2) RDW-CV (test code = 13.2 % 12.0-15.5 788-0) PLT (test code = See_Comment [Automated 777-3) message] The sy stem which generated this result transmitted reference range : 166 - 358 10*3/ ?L. The reference r coreen was not used to interpret this result as normal/abnormal . MPV (test code = 10.6 fL 9.5-12.9 42413-3) NRBC/100 WBC (test See_Comment [Automat ed code = 7320904334) message] The system which generated this result transmitted reference range : 0.0 - 10.0 /100 WBCs. The refer ence range was not u sed to interpret th is result as normal/abnormal . NRBC x10^3 (test code <0.01 See_Comment [Auto mated = 5559795150) message] The s ystem which generated this result transmitted reference range : 10*3/?L. The reference range was not used to interpret this result as normal/abnormal . GRAN MAT (NEUT) % 76.2 % (test code = 770-8) IMM GRAN % (test code 0.20 % = 6980425181) LYMPH % (test code = 13.4 % 736-9) MONO % (test code = 9.1 % 5905-5) EOS % (test code = 0.4 % 713-8) BASO % (test code = 0.7 % 706-2) GRAN MAT x10^3(ANC) 7.36 10*3/uL 1.88-7.09 H (test code = 7745513698) IMM GRAN x10^3 (test <0.03 0.00-0.06 code = 4665909475) LYMPH x10^3 (test code 1.30 10*3/uL 1.32-3.29 L = 731-0) MONO x10^3 (test code 0.88 10*3/uL 0.33-0.92 = 742-7) EOS x10^3 (test code = 0.04 10*3/uL 0.03-0.39 711-2) BASO x10^3 (test code 0.07 10*3/uL 0.01-0.07 = 704-7) Lab Interpretation Abnormal (test code = 69450-0) [facility]
[2023-07-20 10:16] LABS: Absolute Lymphocytes (CBC) 2.3 K/uL (0.7-4.9); Hematocrit 37.1 % (36.0-45.0); Lymphocytes % 26.4 % (15.3-44.8); MCV 88.1 fL (80-100); Platelets 282 thou/uL (152-406); RBC Red Blood Cell Count 4.21 M/uL (3.86-4.86)
[2023-07-20 10:26] LABS: Specific Gravity > 1.030 (1.005-1.030)
[2023-07-20] MEDS ORDERED: NA CHLORIDE 0.9% 1,000 ML ONE (10:33)
[2023-07-20] MEDS ORDERED: PROMETHAZINE INJ 25 MG/ML AMP ONE (10:33)
[2023-07-20 10:35] LABS: Potassium 3.3 mEq/L (3.5-5.1)
[2023-07-20 10:36] LABS: Specific Gravity > 1.030 (1.005-1.030); Urine Bacteria None Seen /HPF (<20); Urine Bilirubin NEGATIVE (Negative); Urine Blood Negative (Negative); Urine Clarity Turbid (Clear); Urine Color Yellow (Yellow); Urine Glucose NEGATIVE (Negative); Urine Mucus 4+ /HPF (None Seen); Urine Protein 1+ (Negative); Urine RBC <5 /HPF (None Seen); Urine Urobilinogen 1+ (Normal); Urine pH 5.5 (5.0-7.0)
--- NOTE | 2023-07-20 12:01 | RAD REPORT ---
EXAM DESCRIPTION: US - Transvaginal OB - 07/20/2023 10:55 am CLINICAL HISTORY: rule out ectopic;Abd pain COMPARISON: No comparisons FINDINGS: Gestational sac identified measuring 0.8 cm. This is consistent with 5 weeks 3 day. The uterus measures 8.6 cm in long axis. The right ovary has volume 11.3 cc. The left ovary is volume of 14.6 cc. Mild pelvic free fluid. Bilateral ovarian blood flow. . IMPRESSION: Single IUP identified measuring 5 week 3 day with ROXANNE of 03/18/2024. Bilateral ovarian blood flow. Pelvic free fluid which may be physiologic.
--- NOTE | 2023-07-20 12:06 | ER ---
Nurse's Notes [facility] Name: Katherine Marrufo Age: 32 yrs Sex: Female : 1990 Arrival Date: 07/20/2023 Time: 09:49 Bed 8 Private MD: Quentin Ordonez Diagnosis: Intrauterine ;Lower abdominal pain, unspecified Presentation: 07/20 09:58 Chief complaint: RLQ pain and N/V x 4 days. Not tolerating fluids. Had positive home hb test yesterday. Coronavirus screen: At this time, the client does not indicate any symptoms associated with coronavirus-19. Ebola Screen: No symptoms or risks identified at this time. 09:58 Method Of Arrival: Ambulatory hb 09:58 Initial Sepsis Screen: Does the patient meet any 2 criteria? No. Patient's initial hb sepsis screen is negative. Does the patient have a suspected source of infection? No. Patient's initial sepsis screen is negative. Risk Assessment: Do you want to hurt yourself or someone else? Patient reports no desire to harm self or others. Onset of symptoms was July 16, 2023. 09:58 Acuity: PIA 3 hb Historical: - Allergies: 10:00 Azithromycin; hb 10:00 Iodine (Anaphylaxis); hb 10:00 PENICILLINS; hb 10:00 Sulfa (Sulfonamide Antibiotics); hb 10:11 Codeine; hb - Home Meds: 10:11 Desmopressin Acetate Nasal [Active]; levothyroxine oral [Active]; Ozempic subcutaneous hb [Active]; Vitamin D3 oral [Active]; TXA [Active]; - PMHx: 10:00 Eclampsia; Hemophillia; hb 10:11 Hypothyroidism; Anemia; hb - PSHx: 10:00 lap-band; hb - Immunization history:: Adult Immunizations up to date. - Social history:: Smoking status: Patient denies any tobacco usage or history of. - Family history:: not pertinent. - Hospitalizations: : No recent hospitalization is reported. Screenin:03 [facility] ED Fall Risk Assessment (Adult) History of falling in the last 3 months, ld1 including since admission. [facility] ED Fall Risk Assessment (Adult) History of falling in the last 3 months, including since admission No falls in past 3 months (0 pts). Abuse screen: Denies threats or abuse. Denies injuries from another. Nutritional screening: No deficits noted. Tuberculosis screening: No symptoms or risk factors identified. Assessment: 10:03 General: Appears in no apparent distress. uncomfortable, Behavior is calm, cooperative, ld1 appropriate for age. Pain: Complains of pain in right femoral area, suprapubic area and right inguinal area Pain does not radiate. Pain currently is 8 out of 10 on a pain scale. Quality of pain is described as sharp, shooting, Is continuous. Neuro: Level of Consciousness is awake, alert, obeys commands, Oriented to person, place, time, situation. Cardiovascular: Capillary refill < 3 seconds Patient's skin is warm and dry. Respiratory: Airway is patent Respiratory effort is even, unlabored. GI: Abdomen is round non-distended, Reports lower abdominal pain, nausea, vomiting. : No signs and/or symptoms were reported regarding the genitourinary system. EENT: No signs and/or symptoms were reported regarding the EENT system. Derm: No signs and/or symptoms reported regarding the dermatologic system. Musculoskeletal: No signs and/or symptoms reported regarding the musculoskeletal system. 10:30 Reassessment: C/O Nausea. Notified ERP. See MAR for orders. ld1 12:15 Reassessment: Patient appears in no apparent distress at this time. Patient and/or hb family updated on plan of care and expected duration. Pain level reassessed. Patient is alert, oriented x 3, equal unlabored respirations, skin warm/dry/pink. Vital Signs: 10:03 BP 133 / 88; Pulse 99; Resp 18; Temp 97.9(TE); Pulse Ox 100% on R/A; Weight 83.91 kg; hb Height 5 ft. 4 in. ; Pain 8/10; 11:14 BP 109 / 70; Pulse 85; Resp 18; Pulse Ox 100% ; ld1 12:28 BP 103 / 70; Pulse 81; Resp 18; Pulse Ox 100% on R/A; ll1 10:03 Body Mass Index 31.75 (83.91 kg, 162.56 cm) hb 10:03 Pain Scale: Adult hb ED Course: 09:52 Patient arrived in ED. am2 09:52 Quentin Ordonez MD is Private Physician. am2 09:53 Rodríguez Jones MD is Attending Physician. rn 10:00 Arm band placed on Patient placed in an exam room, on a stretcher. hb 10:03 Patient has correct armband on for positive identification. Placed in gown. Bed in low ld1 position. Call light in reach. Side rails up X2. site monitor on. Pulse ox on. NIBP on. Door closed. Noise minimized. Warm blanket given. 10:03 No provider procedures requiring assistance completed. Inserted saline lock: 20 gauge ld1 in right antecubital area, using aseptic technique. Blood collected. 10:10 Triage completed. hb 10:22 Lakeisha Kimball, RN is Primary Nurse. ld1 10:57 Transvaginal Ob In Process Unspecified. EDMS 12:04 Rodríguez Jones MD is Referral Physician. rn 12:28 IV discontinued, intact, bleeding controlled, No redness/swelling at site. ll1 Administered Medications: 10:22 Drug: Promethazine IVP 12.5 mg IVP once Route: IVP; Site: right antecubital; ld1 10:22 Drug: NS 0.9% IV 1000 ml IV at 1000 ml once Route: IV; Rate: 1000 ml; Site: right ld1 antecubital; Medication: 10:03 VIS not applicable for this client. ld1 Outcome: 12:05 Discharge ordered by . rn 12:28 Discharged to home ambulatory, with family, ll1 12:28 Condition: stable 12:28 Discharge instructions given to patient, family, Instructed on discharge instructions, follow up and referral plans. Demonstrated understanding of instructions, follow-up care, 12:28 Discharged to home ambulatory, with significant other, hb 12:29 Patient left the ED. ll1 Signatures: Dispatcher [employer] EDAZ Rodríguez Jones MD MD rn Baxter, Heather RN RN hb Ramona Seaman am2 Adrien Presley RN RN ll1 Lakeisha Kimball, HSAJI RN ld1 Corrections: (The following items were deleted from the chart) 10:10 10:03 BP 133 / 88; Pulse 99bpm; Resp 18bpm; Pulse Ox 100% RA; Pain 8/10, Adult; ld1 hb
--- NOTE | 2023-07-20 12:06 | EDPHYS ---
Physician Documentation [facility] Name: Katherine Marrufo Age: 32 yrs Sex: Female : 1990 Arrival Date: 07/20/2023 Time: 09:49 Bed 8 Private MD: Quentin Ordonez ED Physician Rodríguez Jones HPI: 07/20 10:07 This 32 yrs old Female presents to ER via Unassigned with complaints of Vomiting, rn Pelvic Pain. 10:07 The patient presents to the emergency department with nausea, vomiting, abdominal pain, rn of the suprapubic area. Onset: The symptoms/episode began/occurred 2 day(s) ago. Possible causes: unknown. The symptoms are aggravated by movement, pressure, The symptoms are alleviated by nothing. Severity of symptoms: At their worst the symptoms were moderate in the emergency department the symptoms are unchanged. The patient has experienced similar episodes in the past. The patient has not recently seen a physician. Patient reports lower pelvic pain that began a couple of days ago. No trauma. Reports currently on control pills and has never gotten without fertilization, but took a test at home and was positive yesterday. No fever. But reports difficult to keep things down with vomiting and abdominal pain is getting worse. Patient is concerned may have ectopic and would like that ruled out. No history of ectopic or PID in the past. 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 Patient states spotting when this started on Friday but no longer spotting or bleeding. No urinary symptoms. No fever or chills. Also history of ovarian cyst.. Historical: - Allergies: 10:00 Azithromycin; hb 10:00 Iodine (Anaphylaxis); hb 10:00 PENICILLINS; hb 10:00 Sulfa (Sulfonamide Antibiotics); hb 10:11 Codeine; hb - Home Meds: 10:11 Desmopressin Acetate Nasal [Active]; levothyroxine oral [Active]; Ozempic subcutaneous hb [Active]; Vitamin D3 oral [Active]; TXA [Active]; - PMHx: 10:00 Eclampsia; Hemophillia; hb 10:11 Hypothyroidism; Anemia; hb - PSHx: 10:00 lap-band; hb - Immunization history:: Adult Immunizations up to date. - Social history:: Smoking status: Patient denies any tobacco usage or history of. - Family history:: not pertinent. - Hospitalizations: : No recent hospitalization is reported. ROS: 10:07 Constitutional: Negative for fever, chills, and weight loss, Eyes: Negative for injury, rn pain, redness, and discharge, Cardiovascular: Negative for chest pain, palpitations, and edema, Respiratory: Negative for shortness of breath, cough, wheezing, and pleuritic chest pain, Abdomen/GI: Positive for lower abdominal pain and vomiting Back: Positive for right lower back pain : Negative for injury, bleeding, discharge, and swelling, MS/Extremity: Negative for injury and deformity, Neuro: Negative for headache, weakness, numbness, tingling, and seizure, Exam: 10:07 Constitutional: This is a well developed, well nourished patient who is awake, alert, rn and in no acute distress. Head/Face: Normocephalic, atraumatic. Cardiovascular: Regular rate and rhythm. No pulse deficits. Respiratory: No increased work of breathing, no retractions or nasal flaring. Abdomen/GI: Soft, positive for suprapubic and mild right lower quadrant tenderness. No peritoneal signs. No distention. Neuro: Awake and alert, GCS 15 Vital Signs: 10:03 BP 133 / 88; Pulse 99; Resp 18; Temp 97.9(TE); Pulse Ox 100% on R/A; Weight 83.91 kg; hb Height 5 ft. 4 in. ; Pain 8/10; 11:14 BP 109 / 70; Pulse 85; Resp 18; Pulse Ox 100% ; ld1 12:28 BP 103 / 70; Pulse 81; Resp 18; Pulse Ox 100% on R/A; ll1 10:03 Body Mass Index 31.75 (83.91 kg, 162.56 cm) hb 10:03 Pain Scale: Adult hb MDM: 09:53 Patient medically screened. rn 11:22 ED course: Patient states beta quantitative was 300 this morning and already up to 411..rn 12:02 Differential diagnosis: Nonspecific abd pain, appendicitis, viral gastroenteritis, rn gastroenteritis, Ruptured ovarian cyst, kidney stone, IUP, ectopic . Data reviewed: vital signs, nurses notes, lab test result(s), radiologic studies, CT scan, and as a result, I will discharge patient. Counseling: I had a detailed discussion with the patient and/or guardian regarding the historical points, exam findings, and any diagnostic results supporting the discharge/admit diagnosis, lab results, radiology results, the need for outpatient follow up, to return to the emergency department if symptoms worsen or persist or if there are any questions or concerns that arise at home. Response to treatment: the patient's symptoms have mildly improved after treatment, and as a result, I will discharge patient. Special discussion: Based on the patient's Hx, exam, and Dx evaluation, there is no indication for emergent surgery or inpatient Tx. It is understood by the patient/guardian that if the Sx's persist or worsen they need to return immediately for re-evaluation. I discussed with the patient/guardian in detail that at this point there is no indication for admission to the hospital. It is understood, however, that if the symptoms persist or worsen the patient needs to return immediately for re-evaluation. ED course: Patient with IUP on ultrasound measuring approximately 5 weeks. Beta quant was 300 this morning and now 400 with good rise. Normal white blood cell count. No renal insufficiency. Has a history of kidney stone but negative blood and this feels different. Offered patient transfer for MRI to completely rule out other causes such as appendicitis and patient declines. Low suspicion for appendicitis but not completely ruled out and patient understands this. 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 I have personally reviewed all of the results, including but not limited to blood tests and imaging deemed necessary to safely discharge this patient at this time. All results given to and printed out for patient. I personally went over all the results with the patient and answered all questions. Patient will follow-up with PCP and or specialist as discussed. Return precautions given and understood.. 07/20 09:53 Order name: Abo/rh Typing; Complete Time: 11:21 rn 07/20 09:53 Order name: Basic Metabolic Panel; Complete Time: 10:58 rn 07/20 09:53 Order name: CBC with Diff; Complete Time: : rn 07/20 09:53 Order name: Test, Urine; Complete Time: :58 rn 07/20 09:53 Order name: Quantitative Hcg; Complete Time: 10:58 rn 07/20 09:53 Order name: Urinalysis w/ reflexes; Complete Time: 10:58 rn 07/20 09:53 Order name: US Transvaginal Ob; Complete Time: 12:01 rn 10/22 09:53 Order name: IV Saline Lock; Complete Time: 10:03 rn 07/20 09:53 Order name: Labs collected and sent; Complete Time: 10: rn 07/20 09:53 Order name: NPO; Complete Time: 09:57 rn Administered Medications: : Drug: Promethazine IVP 12.5 mg IVP once Route: IVP; Site: right antecubital; ld1 : Drug: NS 0.9% IV 1000 ml IV at 1000 ml once Route: IV; Rate: 1000 ml; Site: right ld1 antecubital; Disposition Summary: 07/20/23 12:05 Discharge Ordered Notes: Location: Home rn Problem: new rn Symptoms: have improved rn Condition: Stable rn Diagnosis - Intrauterine rn - Lower abdominal pain, unspecified rn Followup: rn - With: Rodríguez Jones MD - When: As needed - Reason: Recheck today's complaints, Re-evaluation by your physician Discharge Instructions: - Discharge Summary Sheet rn - Abdominal Pain, Adult rn - Abdominal Pain During rn - Pain Without a Known Cause rn Forms: - Medication Reconciliation Form rn - Thank You Letter rn - Antibiotic rn access - Prescription Opioid Use rn - Patient Portal Instructions rn - Leadership Thank You Letter rn Signatures: Dispatcher [employer] EDRodríguez Ramos MD MD rn Baxter, Heather, RN RN hb Sims, Lauren, RN RN ld1
== END 2023-07-20 12:29 | disposition home or self-care (01) ==
LOC: ER 09:49
DX: R10.30 Lower abdominal pain, unspecified (principal); Z33.1 Pregnant state, incidental; Z88.0 Allergy status to penicillin; Z88.1 Allergy status to other antibiotic agents; Z88.2 Allergy status to sulfonamides; Z88.5 Allergy status to narcotic agent; Z91.048 Other nonmedicinal substance allergy status
CPT/HCPCS: 85025; 81001; 80048; 36415; 86900; 81025; 86901; 84702; 76817; 96374; 99285; J2550; J7030

== ENCOUNTER 2024-01-05 00:04 | Inpatient (IN) | payer BC ==
[2024-01-05] MEDS ORDERED: ACETAMINOPHEN 500 MG TAB PO PRN (00:33)
[2024-01-05] MEDS ORDERED: VANCOMYCIN 1 GM in NA CHLORIDE 0.9% 250 ML IVPB SCH (00:57)
[2024-01-05] MEDS ORDERED: SODIUM CHLORIDE 0.9% 10ML INJ IV PRN (00:58)
--- NOTE | 2024-01-05 01:01 | P.HP ---
Certification for Inpatient Patient admitted to: Observation With expected LOS: <2 Midnights Practitioner: I am a practitioner with admitting privileges, knowledge of patient current condition, hospital course, and medical plan of care. Services: Services provided to patient in accordance with Admission requirements found in Title 42 Section 412.3 of the Code of Federal Regulations Patient History Date of Service: 01/05/24 Reason for admission: Left thigh abscess History of Present Illness: 33 yo female with past medical history of PCOS who was transferred from outside ER where she presented with pain and swelling of the left upper thigh which has been progressive for the last 2 to 3 days. Stated that patient has a sick contact with hand-foot mouth disease. Started having a small pimple-like area in the left upper thigh. Swelling progressively getting worse prompting her to go to the ER. She was assessed in the ER and was found to have possible abscess and was sent over here for further management and surgical consult. Patient denies any fever or chills. No nausea vomiting or diarrhea. No dysuria Allergies azithromycin Allergy (Verified 03/01/20 03:52) Unknown Iodine and Iodide Containing Produc Allergy (Verified 03/01/20 03:52) Anaphylaxis shellfish derived Allergy (Verified 01/05/24 03:42) Hives Sulfa (Sulfonamide Antibiotics) Allergy (Verified 03/01/20 03:52) Unknown - Past Medical/Surgical History Has patient received pneumonia vaccine in the past: No Diabetic: No Past Medical History: Reviewed- Non-Contributory -: von arianna brand -: PCOS Past Surgical History: Reviewed- Non-Contributory -: lap band -: tonsillectomy - Family History Family History: Reviewed- Non-Contributory - Social History Smoking Status: Never smoker Alcohol use: Yes CD- Drugs: No Caffeine use: Yes Place of Residence: Home Review of Systems 10-point ROS is otherwise unremarkable Physical Examination - Vital Signs Temperature: 98.1 F Blood Pressure: 118/58 Pulse: 86 Respirations: 18 Pulse Ox (%): 98 - Physical Exam General: Alert, In no apparent distress, Oriented x3, Cooperative HEENT: Atraumatic, Normocephalic Neck: Supple, JVD not distended, No Thyromegaly Respiratory: Clear to auscultation bilaterally, Normal air movement Cardiovascular: Normal pulses, Regular rate/rhythm, Normal S1 S2 Capillary refill: <2 Seconds Gastrointestinal: Soft and benign, W/out hepatosplenomegaly, No ascites, No tenderness Musculoskeletal: Swelling, Erythema, Tenderness, Warmth, Other (Left upper thigh erythema and induration +) Integumentary: Tenderness/swelling, Erythema, Warmth Neurological: Normal speech, Normal strength at 5/5 x4 extr, Cranial nerves 3-12 intact, Normal reflexes 2+, Normal affect Lymphatics: No axilla or inguinal lymphadenopathy Assessment and Plan - Problems (Diagnosis) (1) Abscess of left thigh Current Visit: Yes Status: Acute Plan: Abscess of left upper thigh Started on IV antibiotic Monitor closely Pain control Consult to surgery Dr. eRyna on board Will keep n.p.o. postmidnight for possible I&D Nausea and vomiting Given Zofran without much benefit Will give a dose of Phenergan Started on Protonix. Patient has bilious vomiting Started on IV hydration Discharge Plan: Home Plan to discharge in: 48 Hours - Advance Directives Does patient have a Living Will: No Does patient have a Durable POA for Healthcare: No - Code Status/Comfort Care Code Status: Full Code Time Spent Managing Pts Care (In Minutes): 54
[2024-01-05] MEDS: PANTOPRAZOLE 40 MG INJ ONE (01:10)
[2024-01-05] MEDS: VANCOMYCIN 1.5 GM in NA CHLORIDE 0.9% 500 ML IVPB ONE (01:22)
[2024-01-05] MEDS: NA CHLORIDE 0.9% 1,000 ML IV SCH (01:22)
[2024-01-05] MEDS: PANTOPRAZOLE 40 MG INJ IVP SCH (01:22)
[2024-01-05] MEDS: PROMETHAZINE INJ 25 MG/ML AMP IV PRN (01:22)
[2024-01-05 01:58] VITALS: BMI 32.3
[2024-01-05 06:46] LABS: Absolute Eosinophils 0.1 K/uL (0-0.5); Absolute Lymphocytes (CBC) 1.4 K/uL (0.7-4.9); Absolute Monocytes 0.6 K/uL (0.1-1.3); Absolute Neutrophil 2.9 K/uL (1.8-8.0); Basophils % 0.9 % (0-1.3); Eosinophils % 2.3 % (0-4.4); Hematocrit 31.6 % (36.0-45.0); Hemoglobin 10.5 g/dL (12.0-15.0); Lymphocytes % 27.2 % (15.3-44.8); MCH 28.5 pg (27.0-35.0); MCHC 33.3 g/dL (32.0-36.0); MCV 85.5 fL (80-100); MPV 9.2 fL (7.6-11.3); Monocytes % 11.2 % (3.3-12.3); Neutrophils % 58.4 % (41.7-73.7); Nucleated Red Blood Cells % 0.1 % (0-0); Platelets 181 thou/uL (152-406); Red Cell Distribution Width 14.3 % (12.1-15.2)
[2024-01-05 07:02] LABS: Anion Gap 4.9 mEq/L (5.0-15.0); C-Reactive Protein 21.3 mg/L (<3.00); Magnesium 2.1 mg/dL (1.6-2.4); Phosphorus 3.9 mg/dL (2.5-4.9); Potassium 3.9 mEq/L (3.5-5.1)
[2024-01-05] MEDS: ENOXAPARIN 40 MG/0.4 ML SQ SCH (08:13)
[2024-01-05] MEDS: CEFEPIME 1 GM in NA CHLORIDE 0.9% 100 ML IV SCH (08:13)
[2024-01-05] MEDS ORDERED: ONDANSETRON 4 MG/2 ML VIAL ONE (09:55)
[2024-01-05] MEDS ORDERED: FENTANYL CITR 100 MCG/2 ML ONE (09:55)
[2024-01-05] MEDS ORDERED: MIDAZOLAM HCL 2 MG/2 ML INJ ONE (09:55)
[2024-01-05] MEDS ORDERED: propofoL 200 MG/20 ML VIAL IV ONE (09:55)
[2024-01-05] MEDS ORDERED: LIDOCAINE 2% MPF 5 ML VIAL ONE (09:55)
[2024-01-05] MEDS: Ringers Lactate 1,000 ML IV ONE (10:10)
[2024-01-05] MEDS ORDERED: dexAMETHasone 10 MG/ML VIAL ONE (10:34)
--- NOTE | 2024-01-05 11:03 | P.BOP ---
Preoperative diagnosis: Left thigh cellulitis with abscess, Von Willebrand Postoperative diagnosis: same Primary procedure: Incision and drainage of left thigh complex abscess 5x5cm Estimated blood loss: <3cc Specimen: abscess Findings: abscess drained thru multiple insicions Anesthesia: General Complications: None Transferred to: Recovery Room Condition: Good
[2024-01-05] MEDS: HYDROMORPHONE HCL 1 MG/ML INJ ONE (11:36)
[2024-01-05] MEDS: MEPERIDINE HCL 25 MG/ML SYR ONE (11:41)
--- NOTE | 2024-01-05 13:22 | P.PN ---
Subjective Date of Service: 01/05/24 Chief Complaint: Left thigh abscess Pt is resting comfortably in bed. Gen surgery took him to the OR for I&D. Will continue iv abx. No other complaints. Review of Systems General: Unremarkable Eyes: Unremarkable ENT: Unremarkable Respiratory: Unremarkable Cardiovascular: Unremarkable Gastrointestinal: Unremarkable Genitourinary: Unremarkable Musculoskeletal: Unremarkable Integumentary: Lesions Neurological: Unremarkable Physical Examination - Vital Signs Temperature: 98.0 F Blood Pressure: 112/58 Pulse: 80 Respirations: 17 Pulse Ox (%): 99 - Physical Exam General: Alert, In no apparent distress, Oriented x3 HEENT: Atraumatic, Normocephalic, PERRLA Neck: Supple, 2+ carotid pulse no bruit Respiratory: Clear to auscultation bilaterally, Normal air movement Cardiovascular: No edema, Normal pulses, Regular rate/rhythm, Normal S1 S2 Capillary refill: <2 Seconds Gastrointestinal: Normal bowel sounds, Soft and benign, Non-distended Musculoskeletal: No clubbing, No swelling Integumentary: No rashes, No breakdown, Skin lesion Neurological: Normal gait, Normal speech, Normal strength at 5/5 x4 extr Lymphatics: No axilla or inguinal lymphadenopathy - Studies Laboratory Data (last 24 hrs) 01/05/24 01/05/24 01/05/24 05:55 05:55 05:55 WBC 5.00 Hgb 10.5 L Hct 31.6 L Plt Count 181 Sodium 139 Potassium 3.9 BUN 10 Creatinine 0.72 Glucose 86 Phosphorus 3.9 Magnesium 2.1 Assessment And Plan - Plan Left thigh abscess: Will continue iv abx and f/u wound cx. Gen surgery took pt to the OR for I&D. Continue prn pain med. Nausea and vomiting: Continue IVF and prn Zofran / Phenergan GI ppx: Protonix. DVT ppx: SCD Dispo: Pending hospital course.
[2024-01-05] MEDS: VANCOMYCIN 1.5 GM in NA CHLORIDE 0.9% 500 ML IVPB SCH (14:13)
[2024-01-05] MEDS: DIPHENHYDRAMINE 50 MG/ML VIAL IV PRN (14:48)
--- NOTE | 2024-01-05 15:23 | CON ---
Date of Consultation: 01/05/2024 Reason For Service: Cellulitis over the left inner thigh region. History Of Present Illness: This is a case of a 33-year-old patient, presented to the ER last night with an area of large cellulitis of the left thigh area. It has been like that for 2-3 days. It is advancing and getting bigger every day, so she was a little bit concerned, came to the ER. They call ed me. We identified the problem and admitted her to the hospital for an incision and drainage, on I V antibiotics. She does not remember exactly what caused this. She noticed first a pimple and then this. The area is easily about 15 x 20 cm of redness. There is fluctuance in the center. No other dysuria, hematuria, hematochezia, melena. No recent traveling out of the country. No family member sick at home. Review of Systems: Ten points otherwise unremarkable. Allergies: TO AZITHROMYCIN, IODINE, SHELLFISH, SULFA. Medical Problems: Include von Willebrand factor and PCOS. Surgical History: Includes lap band, tonsillectomy. Social History: She does not smoke. She does not drink alcohol. Family History: Noncontributory. Physical Examination: Vital Signs: Stable. General: The patient is awake, alert. HEENT: Pupils are equal and reactive. Anicteric. Neck: Supple. Chest: Clear. Heart: S1, S2. Abdomen: Soft and depressible. No guarding or rebound. Integumentary: An area at least 15 x 20 cm of redness all over the inner thigh. There is an area of fluctuance seen in the center with about 2-3 cm with ischemic changes, probably the initiating facto r. Extremities: Good capillary refill. Laboratory Data: Blood work shows WBC count of 5, hemoglobin of 10.5, and platelets of 181. Potassi um is 3.9, chloride is 112. Urine negative. Assessment: This is a 33-year-old patient with a left thigh abscess, enlarging. We need incision an d drainage with benefits, alternatives, and risks including, but not limited to infection, bleeding, damage to adjacent structures, anesthesia complications, specific bleeding in her case with a history of von Willebrand factor, VA, even . I am going to let the primary doctors to decide this. We are going to trying to keep this simple. We are going to try to do it under this condition with the Bovie cauterizer. If we see some bleeding in the future, we might have to use some DDAVP or whateve r the medical doctor believes is necessary for her condition. DIANA/ALEXANDRA Voice ID: [id number] Report ID: [id number]
[2024-01-05] MEDS: KETOROLAC 30 MG/ML INJ IV PRN (17:40)
[2024-01-05] MEDS: MORPHINE 4 MG/ML SYR IV ONE (20:53)
--- NOTE | 2024-01-05 21:39 | OP ---
Date of Procedure: 01/05/2024 Surgeon: Satya Reyna MD Preoperative Diagnoses: Left thigh cellulitis with abscess, von Willebrand factor disease. Postoperative Diagnoses: Left thigh cellulitis with abscess, von Willebrand factor disease. Procedure: Incision and drainage of left thigh complex abscess. Anesthesia: General plus local. Findings: Abscess which have to be drained through multiple incisions. The area of the abscess is a bout 5 x 5 cm. We would see the pus. The area of cellulitis is about 20 x 15 cm. Culture was obtai ponce. Complications: None. Packing: Wet-to-dry. Indications: This is a case of a 33-year-old patient, comes to us with a large area of cellulitis, f ound to have areas of fluctuance, so diagnosed with an abscess. She has von Willebrand factor diseas e, but at this time, we also have the abscess which is increasing in size and cellulitis increasing, so we have to do this emergently. The benefits, alternatives, and risks of incision and drainage of an abscess fully explained, which include, but not limited to infection, bleeding, damage to adjacent structures, anesthesia complication, bleeding, [place], and even . She also understands this may no t relieve symptoms. She might need more than one surgical intervention. She understood and signed a consent. The area of concern was marked by me and the patient in the holding room. Description Of Procedure: The patient was brought to the operating room and placed in supine positio n. Anesthesia was done without complication. Left thigh was prepped and draped in usual sterile fas hion. A time-out was called followed by sharp incision of the skin. This is a complex abscess, mult iple loculations, so we have to do this through multiple incisions, the bigger incision is the one wi th not only skin damage, but also have fatty tissue underneath, so the area was irrigated. Hemostasi s was obtained and then injected local anesthetic. We have some of the areas that we also addressed, but those areas just have some pus, but they are more superficial, part of the abscess underneath. The patient tolerated the procedure well. Area was covered with sterile dressings. Hemostasis obtai ponce. The patient was sent to Recovery in stable condition. DIANA/MODL Voice ID: [id number] Report ID: [id number]
[2024-01-05] MEDS: ONDANSETRON 4 MG/2 ML VIAL IV PRN (21:50)
[2024-01-06] MEDS: HYDROCODONE/APAP 5/325 MG TAB PO PRN (01:41)
[2024-01-06 06:57] LABS: Absolute Basophils 0.1 K/uL (0-0.5); Absolute Lymphocytes (CBC) 1.2 K/uL (0.7-4.9); Absolute Monocytes 0.7 K/uL (0.1-1.3); Absolute Neutrophil 6.3 K/uL (1.8-8.0); Basophils % 0.8 % (0-1.3); Hematocrit 31.2 % (36.0-45.0); Hemoglobin 10.5 g/dL (12.0-15.0); Lymphocytes % 14.9 % (15.3-44.8); MCH 28.6 pg (27.0-35.0); MCHC 33.8 g/dL (32.0-36.0); MCV 84.6 fL (80-100); MPV 9.6 fL (7.6-11.3); Monocytes % 8.1 % (3.3-12.3); Neutrophils % 76.2 % (41.7-73.7); Platelets 203 thou/uL (152-406); RBC Red Blood Cell Count 3.69 M/uL (3.86-4.86); Red Cell Distribution Width 14.2 % (12.1-15.2)
[2024-01-06 07:39] LABS: Albumin 2.8 g/dL (3.4-5.0); Albumin/Globulin Ratio 0.8 (1.1-1.8); Anion Gap 6.6 mEq/L (5.0-15.0); Bilirubin Total 0.2 mg/dL (0.2-1.0); Globulin 3.6 g/dL (2.3-3.5); Potassium 3.6 mEq/L (3.5-5.1); Protein, Total 6.4 g/dL (6.4-8.2)
[2024-01-06 09:21] LABS: Platelet Estimate ADEQ; White Blood Cell Scan OK (OK)
[2024-01-06 09:22] LABS: Blood Morphology Comment NOT SEEN (NOT SEEN)
--- NOTE | 2024-01-06 10:31 | P.PN ---
Subjective Date of Service: 01/06/24 Chief Complaint: Left thigh abscess Pt is resting comfortably in bed. She had pain in her left thigh after standing for a while. S/p I&D, POD #1. Will continue iv abx. No other complaints. Review of Systems General: Unremarkable Eyes: Unremarkable ENT: Unremarkable Respiratory: Unremarkable Cardiovascular: Unremarkable Gastrointestinal: Unremarkable Genitourinary: Unremarkable Musculoskeletal: Unremarkable Integumentary: Other (s/p I&D of left thigh) Neurological: Unremarkable Lymphatics: Unremarkable Physical Examination - Vital Signs Temperature: 97 F Blood Pressure: 121/67 Pulse: 92 Respirations: 16 Pulse Ox (%): 99 - Physical Exam General: Alert, In no apparent distress, Oriented x3 HEENT: Atraumatic, Normocephalic, PERRLA Neck: Supple, 2+ carotid pulse no bruit Respiratory: Clear to auscultation bilaterally, Normal air movement, Diminished Cardiovascular: No edema, Normal pulses, Regular rate/rhythm, Normal S1 S2 Capillary refill: <2 Seconds Gastrointestinal: Normal bowel sounds, Soft and benign, Non-distended Musculoskeletal: No clubbing, No swelling Integumentary: No rashes, Other (s/p I&D of left thigh ) Neurological: Normal gait, Normal speech, Normal strength at 5/5 x4 extr Lymphatics: No axilla or inguinal lymphadenopathy - Studies Laboratory Data (last 24 hrs) 01/06/24 01/06/24 06:27 06:27 WBC 8.30 Hgb 10.5 L Hct 31.2 L Plt Count 203 Sodium 140 Potassium 3.6 BUN 5 L Creatinine 0.67 Glucose 115 H Total Bilirubin 0.2 AST 28 ALT 37 Alkaline Phosphatase 55 Assessment And Plan - Plan Left thigh abscess: Will continue iv abx and f/u wound cx. s/p I&D. POD #1. Gen surgery is following. Continue prn pain med. Nausea and vomiting: Continue IVF and prn Zofran / Phenergan GI ppx: Protonix. DVT ppx: SCD Dispo: Pending hospital course.
[2024-01-06] MEDS: MUPIROCIN 2% OINT 22GM TUBE TOP SCH (11:19)
--- NOTE | 2024-01-06 14:12 | P.DS ---
Admission Date: 01/05/24 Discharge Date: 01/07/24 Reason for Admission: Left thigh abscess Consultations: Dr. Reyna Procedures: I&D of cutaneous abscess Brief History of Present Illness: 33 yo female with past medical history of PCOS who was transferred from outside ER where she presented with pain and swelling of the left upper thigh which has been progressive for the last 2 to 3 days. Stated that patient has a sick contact with hand-foot mouth disease. Started having a small pimple-like area in the left upper thigh. Swelling progressively getting worse prompting her to go to the ER. She was assessed in the ER and was found to have possible abscess and was sent over here for further management and surgical consult. Patient denies any fever or chills. No nausea vomiting or diarrhea. No dysuria Hospital Course: Ms. Rojas was seen by Dr. Reyna and subsequently taken to the operating room for I&D of abscess of the left upper thigh. As patient has a history of von Willebrand's and takes DDAVP and TXA for excessive bleeding, multiple different incisions were made to drain the abscess without subsequent packing. Ms. Rojas did well, no excessive bleeding, will be transition from IV to p.o. antibiotics. She will follow-up with Dr. Reyna in his office next week. <Mallory Robles - Last Filed: 01/07/24 06:11> Admission Date: 01/05/24 Discharge Date: 01/07/24 Hospital Course: Pt seen and examined. I agree with the note by the DEGREASING SOLUTION RECLAIMER. Pt is feeling better. Will continue Doxyxycline and dressing changes at home. Follow up with Dr. Reyna in clinic. Ok to discharge pt <Lona Vargas - Last Filed: 01/07/24 12:37> Disposition: ROUTINE DISCHARGE Discharge Condition: GOOD Vital Signs/Physical Exam: Temp Pulse Resp BP Pulse Ox 97.7 F 93 H 17 128/63 100 01/06/24 12:00 01/06/24 12:00 01/06/24 12:00 01/06/24 12:00 01/06/24 12:00 General: Alert, In no apparent distress, Oriented x3 HEENT: Atraumatic, Normocephalic Neck: 2+ carotid pulse no bruit Respiratory: Clear to auscultation bilaterally Cardiovascular: Normal pulses, Regular rate/rhythm Capillary refill: <2 Seconds Gastrointestinal: Soft and benign Musculoskeletal: No clubbing, No swelling Integumentary: Other (left thigh with improved cellulitis, surgical I&D areas with minimal serosanguinous discharge ) Neurological: Normal speech, Normal tone Lymphatics: No axilla or inguinal lymphadenopathy External genitalia: Deferred Rectal: Deferred Laboratory Data at Discharge: WBC 8.30 thou/uL (4.3-10.9) 01/06/24 06:27 Hgb 10.5 g/dL (12.0-15.0) L 01/06/24 06:27 Hct 31.2 % (36.0-45.0) L 01/06/24 06:27 Plt Count 203 thou/uL (152-406) 01/06/24 06:27 Sodium 140 mEq/L (136-145) 01/06/24 06:27 Potassium 3.6 mEq/L (3.5-5.1) 01/06/24 06:27 BUN 5 mg/dL (7-18) L 01/06/24 06:27 Creatinine 0.67 mg/dL (0.55-1.02) 01/06/24 06:27 Glucose 115 mg/dL (74-106) H 01/06/24 06:27 Phosphorus 3.9 mg/dL (2.5-4.9) 01/05/24 05:55 Magnesium 2.1 mg/dL (1.6-2.4) 01/05/24 05:55 Total Bilirubin 0.2 mg/dL (0.2-1.0) 01/06/24 06:27 AST 28 U/L (15-37) 01/06/24 06:27 ALT 37 U/L (13-56) 01/06/24 06:27 Alkaline Phosphatase 55 U/L (45-117) 01/06/24 06:27 <Robles,Mallory Rodriguez - Last Filed: 01/07/24 06:11> Vital Signs/Physical Exam: Temp Pulse Resp BP Pulse Ox 97.8 F 76 14 107/79 94 01/07/24 08:00 01/07/24 08:00 01/07/24 08:00 01/07/24 08:00 01/07/24 08:00 Laboratory Data at Discharge: WBC 3.70 thou/uL (4.3-10.9) L 01/07/24 04:20 Hgb 9.0 g/dL (12.0-15.0) L D 01/07/24 04:20 Hct 27.7 % (36.0-45.0) L 01/07/24 04:20 Plt Count 163 thou/uL (152-406) 01/07/24 04:20 Sodium 143 mEq/L (136-145) 01/07/24 04:20 Potassium 3.8 mEq/L (3.5-5.1) 01/07/24 04:20 BUN 8 mg/dL (7-18) 01/07/24 04:20 Creatinine 0.66 mg/dL (0.55-1.02) 01/07/24 04:20 Glucose 91 mg/dL (74-106) 01/07/24 04:20 Phosphorus 3.9 mg/dL (2.5-4.9) 01/05/24 05:55 Magnesium 2.1 mg/dL (1.6-2.4) 01/05/24 05:55 Total Bilirubin 0.2 mg/dL (0.2-1.0) 01/06/24 06:27 AST 28 U/L (15-37) 01/06/24 06:27 ALT 37 U/L (13-56) 01/06/24 06:27 Alkaline Phosphatase 55 U/L (45-117) 01/06/24 06:27 <Lona Vargas - Last Filed: 01/07/24 12:37> Diet: Regular Activity: Ad jairo <Robles,Mallory Rodriguze - Last Filed: 01/07/24 06:11> <Lona Vargas - Last Filed: 01/07/24 12:37> Home Medications: Desmopressin (Nonrefrigerated) [Desmopressin 10 Mcg/0.1 ml Spr] 1 spray NS DAILY 01/05/24 Tranexamic Acid 1,00 1,000 mg PO TIDP PRN 01/05/24 Doxycycline Hyclate 100 mg PO BID #20 cap 01/06/24 Gabapentin [Neurontin*] 300 mg PO BID #90 cap 01/06/24 Mupirocin Oint [Bactroban 2% Ointment*] 1 appl TOP DAILY #50 gm 01/06/24 Tramadol HCl [Tramadol HCl ER] 100 mg PO BEDTIME PRN #20 cap 01/06/24 New Medications: Mupirocin Oint [Bactroban 2% Ointment*] 1 appl TOP DAILY #50 gm Doxycycline Hyclate 100 mg PO BID #20 cap Gabapentin [Neurontin*] 300 mg PO BID #90 cap Tramadol HCl [Tramadol HCl ER] 100 mg PO BEDTIME PRN #20 cap PRN Reason: Pain Scale 8-10 (Severe) Physician Discharge Instructions: Okay to DC IV and DC home Follow-up with primary care provider in 1 to 2 weeks Follow-up with Dr. Reyna in 1-week Please call the inpatient unit for any questions or concerns regarding hospital stay Return to the ER for worsening symptoms Continue with soap and water then Mupirocin to area. Doxycycline 100mg po BID x 10 days Followup: Quentin Ordonez MD [Primary Care Provider] - Satya Reyna MD [ACTIVE - CAN ADMIT] -
[2024-01-06] MEDS: GABAPENTIN 100 MG CAP PO SCH (20:03)
[2024-01-06] MEDS: VANCOMYCIN 1.5 GM in NA CHLORIDE 0.9% 500 ML IVPB SCH (22:20)
[2024-01-07 04:56] LABS: Absolute Lymphocytes (CBC) 2.2 K/uL (0.7-4.9); Absolute Monocytes 0.3 K/uL (0.1-1.3); Absolute Neutrophil 1.2 K/uL (1.8-8.0); Basophils % 0.9 % (0-1.3); Eosinophils % 1.3 % (0-4.4); Hematocrit 27.7 % (36.0-45.0); Lymphocytes % 58.7 % (15.3-44.8); MCHC 32.5 g/dL (32.0-36.0); MCV 86.1 fL (80-100); MPV 9.7 fL (7.6-11.3); Monocytes % 7.5 % (3.3-12.3); Neutrophils % 31.6 % (41.7-73.7); Nucleated Red Blood Cells % 0.1 % (0-0); Platelets 163 thou/uL (152-406); RBC Red Blood Cell Count 3.22 M/uL (3.86-4.86); Red Cell Distribution Width 14.3 % (12.1-15.2)
[2024-01-07 05:11] LABS: Anion Gap 5.8 mEq/L (5.0-15.0); Potassium 3.8 mEq/L (3.5-5.1)
[2024-01-07] MEDS: POTASSIUM CL SA 10 MEQ TAB PO ONE (09:13)
[2024-01-07 10:51] VITALS: BP 107/79; TEMP 97.8
[2024-01-07 10:52] VITALS: O2SAT 94
== END 2024-01-07 10:21 | disposition home or self-care (01) | DRG 603 ==
LOC: 4TH 00:04
PROVIDERS: ADMIT Hospitalist; ATTEND Hospitalist
PROC: 0J9M0ZZ Drainage of Left Upper Leg Subcutaneous Tissue and Fascia, Open Approach (ICD-10-PCS; principal; 2024-01-05 12:30)
DX: L02.416 Cutaneous abscess of left lower limb (principal); D68.00 Von Willebrand disease, unspecified; L03.116 Cellulitis of left lower limb; Z88.2 Allergy status to sulfonamides; Z88.1 Allergy status to other antibiotic agents; Z91.013 Allergy to seafood; Z91.041 Radiographic dye allergy status
CPT/HCPCS: 36415; 80048; 80053; 80202; 81025; 82947; 83735; 84100; 85025; 86140; 87070; 87075; 87205; 88304; 94010; C9113; J0692; J1100; J1170; J1200; J2001; J2175; J2250; J2405; J2550; J2704; J3010; J7030; J7040; J7120

== ENCOUNTER 2025-01-22 00:55 | Emergency (ER) | payer BC ==
[2025-01-22 01:55] LABS: Absolute Basophils 0.1 K/uL (0-0.5); Absolute Eosinophils 0.1 K/uL (0-0.5); Absolute Lymphocytes (CBC) 2.9 K/uL (0.7-4.9); Absolute Monocytes 0.5 K/uL (0.1-1.3); Absolute Neutrophil 4.9 K/uL (1.8-8.0); Basophils % 1.4 % (0-1.3); Eosinophils % 1.3 % (0-4.4); Hematocrit 38.3 % (36.0-45.0); Lymphocytes % 34.3 % (15.3-44.8); MCH 30.3 pg (27.0-35.0); MCV 89.1 fL (80-100); MPV 9.1 fL (7.6-11.3); Monocytes % 6.3 % (3.3-12.3); Neutrophils % 56.7 % (41.7-73.7); Nucleated Red Blood Cells % 0.2 % (0-0); Platelets 305 thou/uL (152-406); Red Cell Distribution Width 12.9 % (12.1-15.2)
[2025-01-22 02:06] LABS: Albumin/Globulin Ratio 1.1 (1.1-1.8); Anion Gap 8.1 mEq/L (5.0-15.0); Bilirubin Total 0.3 mg/dL (0.2-1.0); Globulin 3.8 g/dL (2.3-3.5); Potassium 4.1 mEq/L (3.5-5.1); Protein, Total 7.8 g/dL (6.4-8.2)
--- NOTE | 2025-01-22 05:42 | ER ---
Nurse's Notes [facility] Name: Katherine Marrufo Age: 34 yrs Sex: Female : 1990 Arrival Date: 01/22/2025 Time: 00:55 Bed Treatment Private MD: Diagnosis: Lap band port pain;Lap band port swelling Presentation: 01/22 01:04 Chief complaint: Patient states: lap band placed in 2013. new onset pain and swelling dd2 to port site. Left abdomen. Coronavirus screen: Client denies travel out of the [place] in the last 14 days. At this time, the client does not indicate any symptoms associated with coronavirus-19. Ebola Screen: No symptoms or risks identified at this time. Initial Sepsis Screen: Does the patient meet any 2 criteria? No. Patient's initial sepsis screen is negative. Does the patient have a suspected source of infection? No. Patient's initial sepsis screen is negative. Risk Assessment: Do you want to hurt yourself or someone else? Patient reports no desire to harm self or others. Onset of symptoms was January 21, 2025. 01:04 Method Of Arrival: Ambulatory dd2 01:04 Acuity: PIA 3 dd2 Triage Assessment: 01:07 General: Appears in no apparent distress. uncomfortable, Behavior is calm, cooperative. dd2 Pain: Complains of pain in umbilical area, right upper quadrant and right lower quadrant Pain currently is 7 out of 10 on a pain scale. Noted to be resistant to movement. EENT: No deficits noted. No signs and/or symptoms were reported regarding the EENT system. Neuro: No deficits noted. Murdock Agitation-Sedation Scale (RASS): 0 - Alert and Calm Level of Consciousness is awake, alert, obeys commands, Oriented to person, place, time, situation. Cardiovascular: No deficits noted. Denies chest pain, shortness of breath, Capillary refill < 3 seconds Clubbing of nail beds is absent JVD is absent Patient's skin is warm and dry. Respiratory: No deficits noted. Airway is patent Respiratory effort is even, unlabored, Respiratory pattern is regular, symmetrical. GI: Abdomen is distended, Abdomen is tender to palpation in umbilical area and right upper quadrant Abd is rigid in right upper quadrant Reports upper abdominal pain. : No deficits noted. No signs and/or symptoms were reported regarding the genitourinary system. Derm: No signs and/or symptoms reported regarding the dermatologic system. Skin is intact, is healthy with good turgor, Skin is diaphoretic, Skin is normal, Skin temperature is warm. Musculoskeletal: Circulation, motion, and sensation intact. Range of motion: intact in all extremities, Swelling present in abdomen. 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 - Infectious Disease History:: Denies. - Social history:: Smoking status: Patient denies any tobacco usage or history of. Patient uses alcohol, occasionally. Patient/guardian denies using street drugs. Screenin:20 [facility] ED Fall Risk Assessment (Adult) History of falling in the last 3 months, dd2 including since admission No falls in past 3 months (0 pts) Confusion or Disorientation No (0 pts) Intoxicated or Sedated No (0 pts) Impaired Gait No (0 pts) Mobility Assist Device Used No (0 pt) Altered Elimination No (0 pt) Score/Fall Risk Level 0 - 2 = Low Risk Oriented to surroundings, Maintained a safe environment, Educated pt \T\ family on fall prevention, incl call for assistance when getting out of bed, Assessed \T\ reinforced patient's understanding of fall precautions. Abuse screen: Denies threats or abuse. Denies injuries from another. Nutritional screening: No deficits noted. Tuberculosis screening: No symptoms or risk factors identified. Assessment: :20 General: see triage assessment. dd2 Vital Signs: 01:04 BP 143 / 83; Pulse 86; Resp 17 S; Temp 97.9(O); Pulse Ox 100% on R/A; Weight 99.79 kg dd2 (R); Height 5 ft. 4 in. (R); Pain 7/10; 04:20 BP 132 / 77; Pulse 83; Resp 16; Pulse Ox 99% on R/A; Pain 7/10; dd2 05:52 BP 127 / 74; Pulse 85; Resp 16; Pulse Ox 100% on R/A; dd2 01:04 Body Mass Index 37.76 (99.79 kg, 162.56 cm) dd2 01:04 Pain Scale: Adult dd2 04:20 Pain Scale: Adult dd2 ED Course: 01:04 Patient arrived in ED. dd2 01:07 Dl Kimball DO is Attending Physician. ms3 01:07 Triage completed. dd2 01:07 Arm band placed on right wrist. dd2 01:19 CBC with Diff Sent. rv1 01:19 CMP Sent. rv1 01:19 Inserted saline lock: 20 gauge in right antecubital area, using aseptic technique. rv1 Blood collected. Flushed with 10 mL NS. 01:20 Patient has correct armband on for positive identification. dd2 01:52 CT Abd/Pelvis - Without Contrast In Process Unspecified. EDMS 02:00 AKASH VANG, RN is Primary Nurse. dd2 05:52 No provider procedures requiring assistance completed. IV discontinued, intact, dd2 bleeding controlled, No redness/swelling at site. Pressure dressing applied. 05:52 Provided Education on: D/C INSTRUCTIONS AND F/U . dd2 Administered Medications: 05:52 Not Given (Patient Refused): morphineor iv 4 mg IVP once over 4 mins dd2 Medication: 01:20 VIS not applicable for this client. dd2 Outcome: 05:41 Discharge ordered by . ms3 05:52 Discharged to home ambulatory, dd2 05:52 Condition: stable 05:52 Discharge instructions given to patient, Instructed on discharge instructions, follow up and referral plans. Demonstrated understanding of instructions, follow-up care, 05:54 Patient left the ED. dd2 Signatures: Dispatcher [employer] EDMS Dl Kimball DO DO ms3 Flavia Foster rv1 AKASH VANG, RN RN dd2 Corrections: (The following items were deleted from the chart) :18 01:07 Allergies: Azithromycin; dd2 dd2 18 01:07 Allergies: Codeine; dd2 dd2 18 01:07 Home Meds: levothyroxine oral; dd2 dd2 01:18 01:07 PMHx: Hypothyroidism; dd2 dd2
--- NOTE | 2025-01-22 05:42 | EDPHYS ---
Physician Documentation [facility] Name: Katherine Marrufo Age: 34 yrs Sex: Female : 1990 Arrival Date: 01/22/2025 Time: 00:55 Bed Treatment Private MD: ED Physician Dl Kimball HPI: 01/22 01:34 This 34 yrs old Female presents to ER via Ambulatory with complaints of lap band port ms3 pain. 01:34 34-year-old female with past medical history of anemia, von Willebrand's disorder ms3 presents to the emergency department for pain and swelling around her Lap-Band port. Patient notes she fell doing lawn work the other day but did not hit her stomach. Patient states her pain is a 7/10. She denies any alleviating or inciting factors.. 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 - Infectious Disease History:: Denies. - Social history:: Smoking status: Patient denies any tobacco usage or history of. Patient uses alcohol, occasionally. Patient/guardian denies using street drugs. ROS: 01:34 Constitutional: Negative for fever, and chills. Cardiovascular: Negative for chest ms3 pain, and palpitations. Respiratory: Negative for shortness of breath, cough, wheezing, and pleuritic chest pain, :34 Skin: Positive for Pain and swelling around Lap-Band port, Exam: :34 Constitutional: This is a well developed, well nourished patient who is awake, alert, ms3 and in no acute distress. Chest/axilla: Normal chest wall appearance and motion. Nontender with no deformity. Cardiovascular: Regular rate and rhythm with a normal S1 and S2. No gallops, murmurs, or rubs. Normal PMI, no JVD. No pulse deficits. Respiratory: Lungs have equal breath sounds bilaterally, clear to auscultation and percussion. No rales, rhonchi or wheezes noted. No increased work of breathing, no retractions or nasal flaring. 01:34 Abdomen/GI: Inspection: abdomen appears normal, Bowel sounds: normal, in all quadrants, Palpation: moderate abdominal tenderness, in the left lower quadrant, Left lower quadrant swelling, mass, tenderness to palpation, Vital Signs: 01:04 BP 143 / 83; Pulse 86; Resp 17 S; Temp 97.9(O); Pulse Ox 100% on R/A; Weight 99.79 kg dd2 (R); Height 5 ft. 4 in. (R); Pain 7/10; 04:20 BP 132 / 77; Pulse 83; Resp 16; Pulse Ox 99% on R/A; Pain 7/10; dd2 05:52 BP 127 / 74; Pulse 85; Resp 16; Pulse Ox 100% on R/A; dd2 01:04 Body Mass Index 37.76 (99.79 kg, 162.56 cm) dd2 01:04 Pain Scale: Adult dd2 04:20 Pain Scale: Adult dd2 MDM: 01:07 Medical Screening Exam initiated ms3 01:34 Differential diagnosis: Hematoma versus seroma. ms3 06:00 Data reviewed: vital signs, nurses notes, lab test result(s), radiologic studies, and ms3 as a result, I will discharge patient. Counseling: I had a detailed discussion with the patient and/or guardian regarding the historical points, exam findings, and any diagnostic results supporting the discharge/admit diagnosis, lab results, radiology results, the need for outpatient follow up, to return to the emergency department if symptoms worsen or persist or if there are any questions or concerns that arise at home. Special discussion: Based on the patient's Hx, exam, and Dx evaluation, there is no indication for emergent surgery or inpatient Tx. It is understood by the patient/guardian that if the Sx's persist or worsen they need to return immediately for re-evaluation. ED course: Discussed labs and imaging with patient. Patient to follow-up with Dr. Sawyer 2 to 3 days. Patient understands and agrees with plan. All questions were answered. Return precautions discussed include worsening symptoms, or any other concerns. On reevaluation patient alert and oriented x 4, no apparent distress, nontoxic-appearing, speaking full sentences.. 01/22 01:08 Order name: CBC with Diff; Complete Time: 02:04 ms3 01/22 01:08 Order name: CMP; Complete Time: 02:12 ms3 01/22 01:08 Order name: CT Abd/Pelvis - Without Contrast ms3 01/22 01:08 Order name: IV Saline Lock; Complete Time: 01:19 ms3 01/22 01:08 Order name: Labs collected and sent; Complete Time: 01:19 ms3 Administered Medications: 05:52 Not Given (Patient Refused): morphineor iv 4 mg IVP once over 4 mins dd2 Disposition Summary: 01/22/25 05:41 Discharge Ordered Notes: Location: Home ms3 Condition: Stable ms3 Diagnosis - Lap band port pain ms3 - Lap band port swelling ms3 Followup: ms3 - With: Private Physician - When: 2 - 3 days - Reason: Recheck today's complaints Discharge Instructions: - Discharge Summary Sheet ms3 - Abdominal Pain, Adult ms3 Forms: - Medication Reconciliation Form ms3 - Antibiotic Education ms3 - Prescription Opioid Use ms3 - Patient Portal Instructions ms3 - Leadership Thank You Letter ms3 Signatures: Dispatcher [employer] EDDl Anthony DO DO ms3 AKASH VANG RN RN dd2 Corrections: (The following items were deleted from the chart) 01:08 01:08 CBC+H.LAB.BRZ ordered. EDMS EDMS 01:08 01:08 COMPREHENSIVE METABOLIC PANEL+C.LAB.BRZ ordered. EDMS EDMS 01:08 01:08 Abdomen Pelvis Wo Con+CT.RAD.BRZ ordered. EDMS EDMS :18 01:07 Allergies: Azithromycin; dd2 dd2 01:18 01:07 Allergies: Codeine; dd2 dd2 :18 01:07 Home Meds: levothyroxine oral; dd2 dd2 :18 01:07 PMHx: Hypothyroidism; dd2 dd2
--- NOTE | 2025-01-22 06:07 | RAD REPORT ---
CLINICAL HISTORY: Gastric band port pain and swelling. COMPARISON: CT Abdomen Pelvis 06/16/2017. TECHNIQUE: CT ABDOMEN PELVIS WITHOUT IV CONTRAST on 01/22/2025 1:08 AM CDT This exam was performed according to our departmental dose-optimization program, which includes autom ated exposure control, adjustment of the mA and/or kV according to patient size and/or use of iterative reconstruction technique. FINDINGS: Lower lungs are clear. Abdomen: The liver is normal in appearance. There is no biliary dilatation. Gallbladder is decompress ed. Gastric banding was performed. The pancreas and spleen are normal in appearance. The adrenal glands and kidneys are unremarkable. Abdominal aorta is normal in course and caliber without aneurysm. There is no free air. There is no r etroperitoneal adenopathy. Pelvis: There is no bowel obstruction. Urinary bladder is unremarkable. There is no free fluid. Uteru s is normal in size. Appendectomy was performed. Skeleton: There are no acute osseous findings. No suspicious bony lesions. IMPRESSION: No acute process. Electronically signed by: Ruslan Wang MD 01/22/2025 05:35 AM CDT RP Due to temporary technical issues with the PACS/MR Presta reporting system, reports are being alberto d by the in-house radiologist without review as a courtesy to ensure prompt reporting the interpreting radiologist is fully responsible for the content of the report. Transcribed Date/Time: 01/22/2025 6:06 AM
[2025-01-22 06:13] VITALS: TEMP 97.9
[2025-01-22 06:20] VITALS: BP 127/74; O2SAT 100
== END 2025-01-22 05:54 | disposition home or self-care (01) ==
LOC: ER 00:55
DX: T82.848A Pain due to vascular prosthetic devices, implants and grafts, initial encounter (principal); K95.09 Other complications of gastric band procedure
CPT/HCPCS: 36415; 74176; 80053; 85025; 99284

== ENCOUNTER 2025-07-08 12:19 | Emergency (ER) | payer BC ==
[2025-07-08] MEDS ORDERED: ONDANSETRON 4 MG/2 ML VIAL ONE (12:30)
[2025-07-08] MEDS ORDERED: FENTANYL CITR 100 MCG/2 ML ONE (12:31)
[2025-07-08] MEDS ORDERED: NA CHLORIDE 0.9% 1,000 ML ONE (12:31)
[2025-07-08] MEDS ORDERED: DIPHENHYDRAMINE 50 MG/ML VIAL ONE (12:48)
[2025-07-08] MEDS ORDERED: METHYLPREDNISOLONE 125 MG INJ ONE (12:48)
[2025-07-08] MEDS ORDERED: FAMOTIDINE 20 MG/2 ML VIAL IV ONE (12:48)
[2025-07-08 12:52] LABS: Absolute Lymphocytes (CBC) 0.7 K/uL (0.7-4.9); Hematocrit 37.2 % (36.0-45.0); Hemoglobin 11.8 g/dL (12.0-15.0); MCH 26.8 pg (27.0-35.0); MCHC 31.8 g/dL (32.0-36.0); MCV 84.3 fL (80-100); MPV 8.5 fL (7.6-11.3); Nucleated RBC Absolute Count 0.0 (0-0); Nucleated Red Blood Cells % 0.0 % (0-0); RBC Red Blood Cell Count 4.42 M/uL (3.86-4.86); White Blood Count 15.20 thou/uL (4.3-10.9)
[2025-07-08 13:00] LABS: PT Prothrombin Time 17.5 SECONDS (10-13.0); Protime INR 1.57
[2025-07-08] MEDS ORDERED: HYDROMORPHONE HCL 1 MG/ML INJ ONE ×3 (13:12→16:40)
--- NOTE | 2025-07-08 13:14 | RAD REPORT ---
EXAM: Chest Single View HISTORY: 34 years Female Dyspnea;Chest pain COMPARISON: 02/29/2020 FINDINGS: LUNGS/PLEURA: Small left pleural effusion with underlying airspace disease or atelectasis. CARDIAC/MEDIASTINUM: The cardiac silhouette is within normal limits. UPPER ABDOMEN: No significant abnormality. BONES: No acute abnormality. LINES/TUBES/OTHER: N/A IMPRESSION: Small left pleural effusion with either underlying atelectasis and/or airspace disease. .
[2025-07-08 13:17] LABS: ALT/SGPT 80.0 U/L (13-56); AST/SGOT 35.0 U/L (15-37); Albumin 2.6 g/dL (3.4-5.0); Albumin/Globulin Ratio 0.5 (1.1-1.8); Alkaline Phosphatase 69.0 U/L (45-117); Anion Gap 13.3 mEq/L (5.0-15.0); BUN Blood Urea Nitrogen 11.0 mg/dL (7-18); Bilirubin Indirect, Calculated 0.7 mg/dL (0.2-0.8); Globulin 4.9 g/dL (2.3-3.5); Glucose Level 93.0 mg/dL (74-106); NT PRO-BNP 158.0 pg/mL (<125); Potassium 3.3 mEq/L (3.5-5.1); Troponin High Sensitivity 6.4 pg/mL (<58.9)
[2025-07-08 14:20] LABS: Blood Morphology Comment NOT SEEN (NOT SEEN); White Blood Cell Scan OK (OK)
--- NOTE | 2025-07-08 14:49 | RAD REPORT ---
EXAMINATION: CTA CHEST PE CLINICAL INDICATION: DYSPNEA TECHNIQUE: This examination was performed according to an angiographic protocol with 3D post-processi ng. This involves 3D reconstructions, MIPs, volume rendered images and/or shaded surface rendering. One or more of the following dose reduction techniques were used: Automated exposure control, adjustm ent of the mA and/or kV according to patient size, and/or iterative reconstruction. Unless otherwise specified, incidental findings do not require dedicated imaging follow-up. COMPARISON: 11/14/2016 FINDINGS: PULMONARY ARTERIES: Normal caliber. No evidence of pulmonary emboli to the subsegmental level. THORACIC AORTA: Normal caliber and configuration. LUNGS: Moderate airspace consolidation is seen in the right lower lobe. Moderate airspace consolidati on also seen in the left lower lobe. PLEURA: Small left pleural effusion. MEDIASTINUM AND LYMPH NODES: No mediastinal mass or fluid collection. Normal size mediastinal, hilar, and axillary lymph nodes. OSSEOUS STRUCTURES AND CHEST WALL: Intact. IMPRESSION: No evidence of pulmonary emboli to the subsegmental level. Moderate-sized areas of bibasilar airspace consolidation, greater on the left, with small left pleura l effusion may represent atelectasis or pneumonia.
--- NOTE | 2025-07-08 14:58 | RAD REPORT ---
EXAMINATION: CT ABDOMEN AND PELVIS WITH CONTRAST CLINICAL INDICATION: s/p gastric sleeve removal ;Abd pain TECHNIQUE: CT abdomen and pelvis was performed, after the administration of IV contrast, as per [facility] protocol. Axial, sagittal and coronal reconstructions were obtained. One or more of the following dose reduction techniques were used: Automated exposure control, adjustment of the mA and k V according to patient size, and iterative reconstruction. Unless otherwise specified, incidental findings do not require dedicated imaging follow-up. COMPARISON: 03/08/2025 FINDINGS: LOWER CHEST: Airspace consolidations in both lung bases, greater on the left with small left pleural effusion. LIVER: Normal in size and contour. No focal lesion. Grossly unremarkable gallbladder. SPLEEN: Normal size. No focal lesion. PANCREAS: No mass, ductal dilation, or michael-pancreatic fluid. ADRENALS: Normal; no mass. KIDNEYS: Normal size and contour. No hydronephrosis. GASTROINTESTINAL TRACT: There is [id number] free fluid in the abdomen and pelvis.. Moderate pne umoperitoneum is present. Omental fat is edematous. There is air present involving the left anterior abdominal wall fascia. Cystic structures in the posterior pelvic cul-de-sac again seen mildl y enlarged since prior study.. Mild dilatation of the stomach and numerous small bowel loops in the left abdomen could indicate ileu s. There is moderate stool in the right colon which appears mildly distended. APPENDIX: Appendix not visualized, but no inflammatory changes in region of appendix. LYMPH NODES: Mildly prominent lymph nodes are seen in the small bowel mesentery. MUSCULOSKELETAL: Mild multilevel spinal degenerative changes. ADDITIONAL FINDINGS: Small air bubble seen in the urinary bladder. IMPRESSION: Mild pneumoperitoneum and mild to moderate free fluid in the abdomen and pelvis noted. Clinical histo ry indicates recent surgical intervention which would potentially explain majority of this. Interval follow-up imaging would be recommended to ensure resolution, however. Significant gastric distention along with dilatation of several small bowel loops favors ileus. Cystic structures are seen posterior to the uterus in the cul-de-sac. These are favored to be gynecol ogic in origin and appear somewhat increased in size since prior CT imaging. Bibasilar lung findings detailed above, please refer to recent CT chest study. Air bubble in her bladder suggests infection or previous instrumentation.
[2025-07-08] MEDS ORDERED: NA CHLORIDE 0.9% 100 ML ONE (15:06)
[2025-07-08] MEDS ORDERED: PIPERACIL/TAZO 3.375 GM VIAL IV ONE (15:07)
--- NOTE | 2025-07-08 15:38 | ER ---
Nurse's Notes [facility] Name: Katherine Marrufo Age: 34 yrs Sex: Female : 1990 Arrival Date: 07/08/2025 Time: 12:19 Bed 16 Private MD: Diagnosis: Unspecified bacterial pneumonia;Surgical complication;Rule out esophageal injury Presentation: 07/08 12:25 Chief complaint: Patient states: SOB and chest pain, recent abdominal sx. Coronavirus ph screen: At this time, the client does not indicate any symptoms associated with coronavirus-19. Ebola Screen: No symptoms or risks identified at this time. Initial Sepsis Screen: Does the patient meet any 2 criteria? No. Patient's initial sepsis screen is negative. Does the patient have a suspected source of infection? No. Patient's initial sepsis screen is negative. Risk Assessment: Do you want to hurt yourself or someone else? Patient reports no desire to harm self or others. Onset of symptoms was July 08, 2025. 12:25 Method Of Arrival: Ambulatory ph 12:25 Acuity: PIA 2 ph Triage Assessment: 12:30 General: Appears in no apparent distress. uncomfortable, well groomed, Behavior is ph calm, cooperative, appropriate for age. Pain: Complains of pain in chest. Neuro: Murdock Agitation-Sedation Scale (RASS): 0 - Alert and Calm Level of Consciousness is awake, alert, obeys commands, Oriented to person, place, time, situation. Cardiovascular: Reports chest pain, shortness of breath. Respiratory: Reports shortness of breath at rest on exertion Onset: The symptoms/episode began/occurred x 3 days, the patient has moderate shortness of breath. GI: No signs and/or symptoms were reported involving the gastrointestinal system. Derm: Skin is pink, warm \T\ dry. 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 - Infectious Disease History:: Denies. - Social history:: Smoking status: Patient denies any tobacco usage or history of. Screenin:04 [facility] ED Fall Risk Assessment (Adult) History of falling in the last 3 months, ph including since admission No falls in past 3 months (0 pts) Confusion or Disorientation No (0 pts) Intoxicated or Sedated No (0 pts) Impaired Gait No (0 pts) Mobility Assist Device Used No (0 pt) Altered Elimination No (0 pt) Score/Fall Risk Level 0 - 2 = Low Risk Oriented to surroundings, Maintained a safe environment, Hourly rounding (assess needs \T\ fall precautionary measures) done. Abuse screen: Denies threats or abuse. Denies injuries from another. Nutritional screening: No deficits noted. Tuberculosis screening: No symptoms or risk factors identified. Assessment: 12:30 General: SEE TRIAGE ASSESSMENT. ph 13:21 Reassessment: Patient appears in no apparent distress at this time. Patient and/or ph family updated on plan of care and expected duration. Pain level reassessed. 15:30 Cardiovascular: Rhythm is sinus tachycardia. Respiratory: Airway is patent Respiratory ph effort is labored, Respiratory pattern is tachypnea. 15:35 Reassessment: Patient appears in no apparent distress at this time. Patient and/or ph family updated on plan of care and expected duration. Pain level reassessed. 16:35 Reassessment: Patient is alert/active/playful, equal unlabored respirations, skin af3 warm/dry/pink. Report called to SHAJI Sorenson at [facility], awaiting EMS for trasnport. Vital Signs: 12:25 BP 140 / 87; Pulse 134; Resp 26; Pulse Ox 86% on R/A; ph 13:03 Pulse Ox 95% on 5 lpm NC; ph 13:23 Pulse 120; Resp 24; Pulse Ox 96% on 5 lpm NC; ph 13:24 BP 126 / 88; ph 14:19 BP 130 / 83; Pulse 119; Pulse Ox 96% on 5 lpm NC; af3 14:22 Temp 98.9; ph 15:35 BP 127 / 80; Pulse 114; Resp 24; Temp 98.3(O); Pulse Ox 96% on 5 lpm NC; ph 16:23 BP 136 / 93; Pulse 119; Resp 26; Pulse Ox 95% on 5 lpm NC; ph Vitals: 13:23 Cardiac Rhythm Assessment Sinus tach. ph ED Course: 12:20 Patient arrived in ED. eb 12:23 [facility] jh7 12:23 Darrick Montes De Oca MD is Attending Physician. jh7 12:40 Initial lab(s) drawn, by me, sent to lab. First set of blood cultures drawn by me, EKG ph done, by ED staff, reviewed by Darrick Montes De Oca MD. Inserted saline lock: 20 gauge in right antecubital area, using aseptic technique. Blood collected. Flushed with 10 mL NS. 12:42 Christina Mariee, RN is Primary Nurse. af3 13:01 XRAY Chest (1 view) In Process Unspecified. EDMS 13:02 Triage completed. ph 13:05 Arm band placed on. ph 13:06 EKG done, by farm equipment technician. reviewed by Darrick Montes De Oca MD. ts3 13:06 Patient has correct armband on for positive identification. Bed in low position. Call ph light in reach. Side rails up X 1. construction lineman on. Pulse ox on. NIBP on. Door closed. Noise minimized. Warm blanket given. Pillow given. 14:25 CT Chest For PE Angio In Process Unspecified. EDMS 14:25 CT Abd/Pelvis - PO and IV Contrast In Process Unspecified. EDMS 15:05 initiated a transfer with Rahul Blackmon from the [facility] Transfer center. eb 15:50 connected the SICU gas meter installer helper supervisor mirror fabrication for [facility] with Claire FINLEY for patient eb transfer consultation. 15:56 administrative approval given by Rahul Blackmon / patient has been accepted to [facility]- SICU room 4/ Dr. Sunshine Santiago has accepted the patient in transfer/ report to be called to [phone]. 16:24 No provider procedures requiring assistance completed. Urine collected: clean catch ph specimen, blood tinged. Patient admitted, IV remains in place. Administered Medications: 12:45 Drug: fentaNYL (PF) IVP 50 mcg IVP once Route: IVP; Site: right antecubital; af3 13:10 Follow up: Response: No adverse reaction; Pain is unchanged, physician notified ph 12:45 Drug: Ondansetron IVP 4 mg IVP once; over 2 minutes Route: IVP; Site: right antecubital;af3 13:10 Follow up: Response: No adverse reaction ph 13:20 Drug: HYDROmorphone IVP 1 mg IVP once Route: IVP; Site: right antecubital; ph 13:45 Follow up: Response: No adverse reaction; Pain is decreased ph 14:15 Drug: diphenhydrAMINE IVP 25 mg IVP once Route: IVP; Site: right antecubital; ph 14:30 Follow up: Response: No adverse reaction ph 14:15 Drug: MethylPrednisoLONE IVP 125 mg IVP once Route: IVP; Site: right antecubital; ph 14:30 Follow up: Response: No adverse reaction ph 14:15 Drug: Famotidine IVP 20 mg IVP once; dilute with 10 mL 0.9% NaCl; give over 2 minutes ph Route: IVP; Site: right antecubital; 14:30 Follow up: Response: No adverse reaction ph 15:34 Drug: Piperacillin-Tazobactam IVPB 3.375 grams IVPB once over 60 mins; (mix in NS 100 ph mL) Route: IVPB; Infused Over: 60 mins; Site: right antecubital; 16:05 Follow up: Response: No adverse reaction; IV Status: Completed infusion ph 15:35 Drug: NS 0.9% IV 1000 ml IV at 1 bolus Per protocol; to be given as a bolus over 60 ph minutes Route: IV; Rate: 1 bolus; Site: right antecubital; 16:26 Follow up: Response: No adverse reaction; IV Status: Completed infusion; IV Intake: ph 1000ml 15:35 Drug: HYDROmorphone IVP 1 mg IVP once Route: IVP; Site: right antecubital; ph 16:00 Follow up: Response: No adverse reaction; Pain is decreased ph 17:14 Drug: HYDROmorphone IVP 1 mg IVP once Route: IVP; Site: right antecubital; ph 17:14 Follow up: Response: No adverse reaction; Medication Administered at Departure ph Medication: 13:06 VIS not applicable for this client. ph Intake: 16:26 IV: 1000ml; Total: 1000ml. ph Outcome: 15:37 ER care complete, transfer ordered by MD. grover 17:15 Transferred by ground EMS [place]. to [facility], Transfer form ph completed. X-rays sent w/ patient. 17:15 Condition: stable 17:15 Instructed on the need for transfer, 17:16 Patient left the ED. ph Signatures: Dispatcher [employer] EDShelia Alva RN RN ph Botello, Elizabeth eb Hadash, Jennifer, FNP FNP 7 Christina Mariee RN RN 3 Yanelis Talbert 3
--- NOTE | 2025-07-08 15:38 | EDPHYS ---
Physician Documentation [facility] Name: Katherine Marrufo Age: 34 yrs Sex: Female : 1990 Arrival Date: 07/08/2025 Time: 12:19 Bed 16 Private MD: ED Physician Darrick Montes De Oca HPI: 07/08 13:05 This 34 yrs old Female presents to ER via Ambulatory with complaints of Shortness Of jh7 Breath. 13:05 34-year-old female with a past medical history of anemia, gastric lap band surgery, and jh7 von Willebrand's disease presents to the ER for shortness of breath, chest pain, and abdominal pain. The patient reports that she had her Lap-Band removed along with extensive scar tissue removal this past Friday. She states that Dr. Adair Sawyer with [facility] was her general surgeon. Denies any fever or cough.. 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 - Infectious Disease History:: Denies. - Social history:: Smoking status: Patient denies any tobacco usage or history of. ROS: 13:05 Constitutional: Per HPI jh7 Exam: 12:57 Head/Face: Normocephalic, atraumatic. ENT: Nares patent. No nasal discharge, no jh7 septal abnormalities noted. Tympanic membranes are normal and external auditory canals are clear. Oropharynx with no redness, swelling, or masses, exudates, or evidence of obstruction, uvula midline. Mucous membranes moist. Neck: Trachea midline, no thyromegaly or masses palpated, and no cervical lymphadenopathy. Supple, full range of motion without nuchal rigidity, or vertebral point tenderness. No Meningismus. Chest/axilla: Normal chest wall appearance and motion. Nontender with no deformity. No lesions are appreciated. Cardiovascular: Regular rate and rhythm with a normal S1 and S2. No gallops, murmurs, or rubs. Normal PMI, no JVD. No pulse deficits. Back: No spinal tenderness. No costovertebral tenderness. Full range of motion. MS/ Extremity: Pulses equal, no cyanosis. Neurovascular intact. Full, normal range of motion. Neuro: Awake and alert, GCS 15, oriented to person, place, time, and situation. Motor strength 5/5 in all extremities. Sensory grossly intact. Normal gait. 12:57 Respiratory: moderate respiratory distress is noted, Respirations: labored breathing, that is moderate, tachypnea, that is mild, Breath sounds: decreased breath sounds, that are mild, are located in both bases, Respiratory rate: 24 12:57 Abdomen/GI: Inspection: abdomen appears normal, Bowel sounds: normal, Palpation: soft, in the epigastric area and right lower quadrant, 12:57 Skin: Appearance: Color: pale, 15:56 Constitutional: The patient appears alert, awake, obviously ill, in obvious pain, jh7 Vital Signs: 12:25 BP 140 / 87; Pulse 134; Resp 26; Pulse Ox 86% on R/A; ph 13:03 Pulse Ox 95% on 5 lpm NC; ph 13:23 Pulse 120; Resp 24; Pulse Ox 96% on 5 lpm NC; ph 13:24 BP 126 / 88; ph 14:19 BP 130 / 83; Pulse 119; Pulse Ox 96% on 5 lpm NC; af3 14:22 Temp 98.9; ph 15:35 BP 127 / 80; Pulse 114; Resp 24; Temp 98.3(O); Pulse Ox 96% on 5 lpm NC; ph 16:23 BP 136 / 93; Pulse 119; Resp 26; Pulse Ox 95% on 5 lpm NC; ph MDM: 12:23 Medical Screening Exam initiated jh7 15:56 Differential diagnosis: pneumonia, pulmonary edema, Pulmonary Embolism Sepsis Gastric jh7 perforation, pneumoperitoneum, pneumomediastinum, esophageal injury. Antibiotic administration: Zosyn and azithromycin. Data interpreted: reporting lead: rate is 110 beats/min, rhythm is sinus tachycardia, Interpretation: normal rhythm, Pulse oximetry: on 5L(s) per nasal canula, is 96 %. Interpretation: acceptable. The patient's pulmonary embolism risk score was calculated as follows: suspected deep vein thrombosis (3 Pts) the patients heart rate is greater than 100 beats per minute (1.5 Pts) patient has experienced immobilization or surgery in the last four weeks (1.5 Pts) Total Score: 3-6 points. This patient was found to be at moderate risk for a pulmonary embolism by using the Well's assessment criteria. Data reviewed: vital signs, nurses notes, lab test result(s), EKG, radiologic studies, CT scan, plain films. Consideration of Admission/Observation Transferred for higher level of care. Management of patient was discussed with the following: Pediatric Intensive Physician: Dr. Adair Sawyer, the patient's general surgeon at [facility]. Advised transfer to the Medical Center for higher level of care in the case of an esophageal injury.. Dr. Santiago, surgical ICU training lead at [facility] who accepted the patient for transfer.. I considered the following discharge prescriptions or medication management in the emergency department Medications were administered in the Emergency Department. See MAR. Independent interpretation of the following test(s) in the Emergency Department EKG: See my EKG interpretation above. Historians other than the Patient: Spouse/Significant Other: . Care significantly affected by the following chronic conditions: Von Willebrand's disease. Counseling: I had a detailed discussion with the patient and/or guardian regarding the historical points, exam findings, and any diagnostic results supporting the discharge/admit diagnosis, lab results, radiology results, the need to transfer to another facility, for higher level of care, [facility] does not immediately have the required specialist. Response to treatment: the patient's symptoms have mildly improved after treatment. 16:06 ED course: Critical care time 60 minutes: Critical care time was utilized to reassess [facility] patient's critical condition and to consult specialties.. 07/08 12:30 Order name: Basic Metabolic Panel; Complete Time: 13: [facility] 07/08 12:30 Order name: CBC with Diff; Complete Time: 14:29 [facility] 07/08 12:30 Order name: LFT's; Complete Time: 13: [facility] 07/08 12:30 Order name: NT PRO-BNP; Complete Time: 13: [facility] 07/08 12:30 Order name: PT-INR; Complete Time: : [facility] 07/08 12:30 Order name: Troponin HS; Complete Time: 13:26 [facility] 07/08 12:30 Order name: Lactate w/ 2H reflex if indic.; Complete Time: 13:26 [facility] 07/08 12:30 Order name: Blood Culture Adult (2) [facility] 07/08 12:58 Order name: CBC Smear Scan; Complete Time: 14:29 [facility] 07/08 15:56 Order name: UA Rfx Jason Cult if indicated; Complete Time: 16:38 [facility] 07/08 16:39 Order name: Urine Culture [facility] 07/08 12:30 Order name: XRAY Chest (1 view); Complete Time: 13:26 [facility] 07/08 12:31 Order name: CT Chest For PE Angio; Complete Time: 15:00 [facility] 07/08 12:41 Order name: CT Abd/Pelvis - PO and IV Contrast; Complete Time: 15:00 07/08 12:30 Order name: EKG; Complete Time: 12:31 [facility] 07/08 12:30 Order name: Cardiac monitoring; Complete Time: 13:06 [facility] 07/08 12:30 Order name: EKG - Nurse/Tech; Complete Time: 13:06 [facility] 07/08 12:30 Order name: IV Saline Lock; Complete Time: 12:45 [facility] 07/08 12:30 Order name: Labs collected and sent; Complete Time: 12:45 [facility] 07/08 12:30 Order name: O2 Per Protocol; Complete Time: 12:45 [facility] 07/08 12:30 Order name: O2 Sat Monitoring; Complete Time: 12:45 [facility] EC:57 Rate is 127 beats/min. Rhythm is regular. QRS Iaeger is Normal. [place] interval is normal. [facility] QRS interval is normal. QT interval is normal. No Q waves. T waves are Normal. No ST changes noted. Clinical impression: Normal ECG. Administered Medications: 12:45 Drug: fentaNYL (PF) IVP 50 mcg IVP once Route: IVP; Site: right antecubital; af3 13:10 Follow up: Response: No adverse reaction; Pain is unchanged, physician notified ph 12:45 Drug: Ondansetron IVP 4 mg IVP once; over 2 minutes Route: IVP; Site: right antecubital;af3 13:10 Follow up: Response: No adverse reaction ph 13:20 Drug: HYDROmorphone IVP 1 mg IVP once Route: IVP; Site: right antecubital; ph 13:45 Follow up: Response: No adverse reaction; Pain is decreased ph 14:15 Drug: diphenhydrAMINE IVP 25 mg IVP once Route: IVP; Site: right antecubital; ph 14:30 Follow up: Response: No adverse reaction ph 14:15 Drug: MethylPrednisoLONE IVP 125 mg IVP once Route: IVP; Site: right antecubital; ph 14:30 Follow up: Response: No adverse reaction ph 14:15 Drug: Famotidine IVP 20 mg IVP once; dilute with 10 mL 0.9% NaCl; give over 2 minutes ph Route: IVP; Site: right antecubital; 14:30 Follow up: Response: No adverse reaction ph 15:34 Drug: Piperacillin-Tazobactam IVPB 3.375 grams IVPB once over 60 mins; (mix in NS 100 ph mL) Route: IVPB; Infused Over: 60 mins; Site: right antecubital; 16:05 Follow up: Response: No adverse reaction; IV Status: Completed infusion ph 15:35 Drug: NS 0.9% IV 1000 ml IV at 1 bolus Per protocol; to be given as a bolus over 60 ph minutes Route: IV; Rate: 1 bolus; Site: right antecubital; 16:26 Follow up: Response: No adverse reaction; IV Status: Completed infusion; IV Intake: ph 1000ml 15:35 Drug: HYDROmorphone IVP 1 mg IVP once Route: IVP; Site: right antecubital; ph 16:00 Follow up: Response: No adverse reaction; Pain is decreased ph 17:14 Drug: HYDROmorphone IVP 1 mg IVP once Route: IVP; Site: right antecubital; ph 17:14 Follow up: Response: No adverse reaction; Medication Administered at Departure ph Disposition Summary: 07/08/25 15:37 Transfer Ordered Notes: Transfer Location: [place] [id number] Reason: Higher level of care jh7 Condition: Stable jh7 Problem: new jh7 Symptoms: have improved jh7 Accepting Physician: Dr. Santiago(07/08/25 17:16) ph Diagnosis - Unspecified bacterial pneumonia jh7 - Surgical complication jh7 - Rule out esophageal injury [facility] Forms: - Medication Reconciliation Form [facility] - SBAR form [facility] Addendum: 07/13/2025 06:58 Co-signature as Attending Physician, Darrick Montes De Oca MD I agree with the assessment and c valle plan of care. Signatures: Dispatcher [employer] EDNY Darrick Montes De Oca MD MD cha Hall, Patricia, RN RN Claire Anderson, LAB[employer] [place] [address] Christina Mariee RN RN af3 Corrections: (The following items were deleted from the chart) 07/08 15:57 13:05 34-year-old female with a past medical history of anemia, gastric lap band 7 surgery, and von Willebrand's disease presents to the ER for. [facility] 16:39 15:37 Accepting [place] [id number] 17:16 16:39 Dr. Santiago [facility]
[2025-07-08 16:35] LABS: Urine Crystals Unidentified Few /HPF (None Seen); Urine Culture Reflex Order REFLEXED; Urine Microscopic Reflex YN ORDER UMIC
[2025-07-08 17:57] VITALS: TEMP 98.3
[2025-07-08 17:59] VITALS: BP 136/93; O2SAT 95
== END 2025-07-08 17:16 | disposition short-term general hospital (02) ==
LOC: ER 12:19
DX: J15.9 Unspecified bacterial pneumonia (principal); K91.89 Other postprocedural complications and disorders of digestive system; K66.8 Other specified disorders of peritoneum
CPT/HCPCS: 96365; 93005; 87040 ×2; 87088; 85025; 81001; 87086; 80048; 36415; 85610; 80076; 83605; 84484; 83880; 71275; 74177; 71045; 96375; 99285; Q9967; J1200; J2543; J3010; J1171 ×3; J2919; J2405; J7030